=== PATIENT | male | born 1940 | race Caucasian/White ===

== ENCOUNTER 2017-06-07 13:13 | Inpatient (IN) | payer MEDICARE, MEDICAID ==
[2017-06-07] MEDS ORDERED: Sodium Chloride 0.9% 1,000 ML IV ONE (13:34)
--- NOTE | 2017-06-07 13:37 | ED Physician Chart ---
ED Chief Complaint/HPI - Patient Information Date Seen:: 06/07/17 Time Seen:: 13:35 Chief Complaint:: weakness History of Present Illness:: pt was sent from [facility] for fever...no fever noted by ems on arrival or here but pt did get tylenol prehospital. no obvious source identified by staff. no cough. no uri sx. no abd p. no cp. no PYLE. no rash. no stiff neck. speaks some to me in north korean. can answer some questions. denies pain. no cp. no sob. no PYLE pts son is present says he is not himself..usually is much more talkative. no other neuro change noted.(beside chronic l side weakness from cva) Allergies:: Allergies Allergy/AdvReac Type Severity Reaction Status Date / Time No Known Allergies Allergy Verified 06/07/17 13:22 Vitals:: Vital Signs - 8 hr 06/07/17 13:22 Temp 99.2 F HR 84 RR 16 BP 102/58 O2 Sat % 98 Historian:: Patient, Family Member (son) Review:: Transfer documents Reviewed ED Review of Systems - Review of Systems General/Constitutional: Fever, No chills, No weight loss, No weakness, No diaphoresis, No edema, No loss of appetite Skin: No skin lesions, No rash, No bruising Head: No headache, No light-headedness Eyes: No loss of vision, No pain, No diplopia ENT: No earache, No nasal drainage, No sore throat, No tinnitus Neck: No neck pain, No swelling, No thyromegaly, No stiffness, No mass noted Cardio Vascular: No chest pain, No palpitations, No PND, No orthopnea, No edema Pulmonary: No SOB, No cough, No sputum, No wheezing GI: No nausea, No vomiting, No diarrhea, No pain, No melena, No hematochezia, No constipation, No hematemesis G/U: No dysuria, No frequency, No hematuria Musculoskeletal: No bone or joint pain, No back pain, No muscle pain Endocrine: No polyuria, No polydipsia Psychiatric: No prior psych history, No depression, No anxiety, No suicidal ideation Hematopoietic: No bruising, No lymphadenopathy Allergic/Immuno: No urticaria, No angioedema Neurological: No syncope, No focal symptoms, Weakness, Paresthesia, No headache , No seizure, No dizziness, Confusion, No vertigo Other: lt side weak from prior cva ED Past Medical History - Past Medical History Past Medical History: HTN, DM, CVA/TIA, Dyslipidemia, Other (anemia) Social History: Care Facility Medication: Reviewed ED Physical Exam - Physical Examination General/Constitutional: Awake, Well-developed, well-nourished, Alert, No distress, GCS 15, Non-toxic appearing, Ambulatory Other Gen/Cons comments:: speaks some to me in [place] korean. can answer some questions. denies pain. no cp. no sob. no PYLE pts son is present says he is not himself..usually is much more talkative. no other neuro change noted. wn/wh. no pallor. abd s/nt. chest cta, good bs bilat. Head: Atraumatic Eyes: Lids, conjuctiva normal, PERRL, EOMI Skin: Nl inspection, No rash, No skin lesions, No ecchymosis, Well hydrated, No lymphadenopathy ENMT: External ears, nose nl, Nasal exam nl, Lips, teeth, gums nl Neck: Nontender, Full ROM w/o pain, No JVD, No nuchal rigidity, No bruit, No mass, No stridor Respiratory: Nl effort/Exclusion, Clear to Auscultation, No Wheeze/Rhonchi/Rales Cardio Vascular: RRR, No murmur, gallop, rubs, NL S1 S2 GI: No tenderness/rebounding/guarding, No organomegaly, No hernia, Normal BS's, Nondistended, No mass/bruits, No McBurney tenderness Other GI comments:: peg tube site ok : No CVA tenderness Extremities: No tenderness or effusion, Full ROM, No edema, Normal digits & nails Neuro/Psych: Alert/oriented, DTR's symmetric, Normal sensory exam, Judgement/ insight normal, Mood normal, No focal deficits Other Neuro/Psych comments:: l side flacid weakness. arm + leg Misc: normal gait, Normal back, No paraspinal tenderness Other Misc comments:: IT has been notified; there is a glitch in charting program --please note pt is nonambulatory. ED Labs/Radiology/EKG Results - Lab Results Results: Laboratory Tests 0906/07/17 06/07/17 14:11 14:11 14:11 WBC 9.3 RBC 4.61 Hgb 13.5 Hct 41.9 MCV 90.8 MCH 29.2 MCHC Differential 32.2 RDW 17.6 Plt Count 195 MPV 11.6 Neutrophils % 68.5 Lymphocytes % 20.8 Monocytes % 7.1 Eosinophils % 2.9 Basophils % 0.7 Sodium 160 H* Potassium 4.0 Chloride 124 H Carbon Dioxide 30.0 Anion Gap 10.0 BUN 74 H Creatinine 1.0 Est GFR ( Amer) TNP Est GFR (Non-Af Amer) TNP BUN/Creatinine Ratio 74.0 Glucose 221 H Hemoglobin A1c % Whole Bld Lactic Acid 2.10 H* Calcium 9.7 Total Bilirubin 0.3 AST 21 ALT 27 Alkaline Phosphatase 138 H Troponin I 0.04 Total Protein 7.6 Albumin 3.5 L Globulin 4.1 Albumin/Globulin Ratio 0.9 L Urine Source Urine Color Urine Clarity Urine pH Ur Specific [place] Urine Protein Urine Glucose (UA) Urine Ketones Urine Blood Urine Nitrate Urine Bilirubin Urine Urobilinogen Ur Leukocyte Esterase Urine RBC Urine WBC Ur Epithelial Cells Urine Bacteria Urine Yeast 06/07/17 06/07/17 14:11 14:50 WBC RBC Hgb Hct MCV MCH MCHC Differential RDW Plt Count MPV Neutrophils % Lymphocytes % Monocytes % Eosinophils % Basophils % Sodium Potassium Chloride Carbon Dioxide Anion Gap BUN Creatinine Est GFR ( Amer) Est GFR (Non-Af Amer) BUN/Creatinine Ratio Glucose Hemoglobin A1c % 8.8 H Whole Bld Lactic Acid Calcium Total Bilirubin AST ALT Alkaline Phosphatase Troponin I Total Protein Albumin Globulin Albumin/Globulin Ratio Urine Source CLEAN C Urine Color YELLOW Urine Clarity CLOUDY Urine pH 5.5 Ur Specific [place] 1.015 Urine Protein 30 H Urine Glucose (UA) NEGATIVE Urine Ketones NEGATIVE Urine Blood SMALL H Urine Nitrate NEGATIVE Urine Bilirubin NEGATIVE Urine Urobilinogen 0.2 Ur Leukocyte Esterase LARGE H Urine RBC 5-10 H Urine WBC >100 H Ur Epithelial Cells NONE SEEN Urine Bacteria MODERATE Urine Yeast MANY H - Radiology Results Results: cxr - nad - EKG Interpretations EKG Time:: 17:15 Rate & Rhythm: nsr 106 [place]: 57 Intervals: qtc 500 Comments:: no ectopy on ecg ...although fairly frequent pvc's seen on c monitor ED Septic Shock - . Is Septic Shock (SBP<90, OR Lactate>4 mmol\L) present?: No - <6hrs of presentation: Vital Signs: Vital Signs - 8 hr 06/07/17 13:22 Temp 99.2 F HR 84 RR 16 BP 102/58 O2 Sat % 98 Assessment of Lungs: Lung CTA bilateral Assessment of Heart: RRR Capillary refill evaluation: Capillary refill < 2 secs Skin Exam: Warm, Dry ED Reassessment (Disposition) - Reassessment Reassessment:: abx ordered for uti. fluids infusing. case dw Dr Whitman at 5:05pm...is admitting. Reassessment Condition:: Improved - Diagnosis Diagnosis:: uti dehydration weakness r/o sepsis hypernatremia - Patient Disposition Admitted to:: Telemetry Condition at Disposition:: Improved
--- NOTE | 2017-06-07 14:01 | Diagnostic Imaging Report ---
CHEST X-RAY: AP view INDICATION: Fever COMPARISON: None FINDINGS: Chronic changes are seen with slight increased left basal lung markings. No focal consolidation or effusions. Heart size is normal. Atherosclerosis is noted. Degenerative changes of the spine are noted. IMPRESSION: Chronic lung changes with increased left basal lung markings also likely chronic. No focal consolidation identified Atherosclerotic vascular disease.
--- NOTE | 2017-06-07 14:21 | Diagnostic Imaging Report ---
Head CT without intravenous contrast Indication: Fever Comparison: None Technique: Axial images were obtained from the vertex to the skull base without IV contrast. Coronal reconstructions were made. Total DLP: 564, [id number] FINDINGS: Images of the brain obtained without contrast demonstrate large area of encephalomalacia throughout the right cerebral hemisphere likely due to old large right MCA territory infarct. Mild atrophy is noted. The ventricles and basal cisterns are patent. No evidence of an acute hemorrhage. No mass effect or midline shift. 6 mm calcification of the left parietal cortex is noted. No mass effect or midline shift. No evidence of a skull fracture or focal soft tissue swelling. Atherosclerosis is noted. IMPRESSION: Large area of encephalomalacia throughout the right cerebral hemisphere likely due to a large old right MCA territory infarct. Please correlate patient's clinical findings. Atrophy. No evidence of acute hemorrhage. Atherosclerotic vascular disease.
[2017-06-07 14:30] LABS: % BASOPHILS 0.7 % (0.0-2.0); % EOSINOPHILS 2.9 % (0.0-5.0); % LYMPHOCYTES 20.8 % (20.0-50.0); % MONOCYTES 7.1 % (2.0-10.0); % NEUTROPHILS 68.5 % (40.0-80.0); HEMATOCRIT 41.9 % (41.0-60); HEMOGLOBIN 13.5 gm/dL (12-16); MEAN CELL VOLUME 90.8 fl (80-99); MEAN CORPUSCULAR HEMOGLOBIN 29.2 pg (27.0-31.0); MEAN CORPUSCULAR HGB CONC 32.2 pg (28.0-36.0); MEAN PLATELET VOLUME 11.6 fl; NEUTROPHILE ABSOLUTE 6.3 Th/cmm (1.8-8.0); PLATELET COUNT 195 Th/cmm (150-400); RED BLOOD COUNT 4.61 Mil/cmm (3.80-5.80); RED CELL DISTRIBUTION WIDTH 17.6 % (11.5-20.0); WHITE BLOOD COUNT 9.3 Th/cmm (4.8-10.8)
[2017-06-07 14:44] LABS: TROP I 0.04 ng/mL (0.01-0.05)
[2017-06-07 15:00] LABS: ALB/GLOB RATIO 0.9 (1.0-1.8); ALKALINE PHOSPHATASE 138 U/L (34-104); BILIRUBIN,TOTAL 0.3 mg/dL (0.3-1.0); BUN - UREA NITROGEN 74 mg/dL (7-25); CALCIUM SERUM 9.7 mg/dL (8.6-10.3); CHLORIDE 124 mEq/L (98-107); GLUCOSE 221 mg/dL (70-105); SGOT 21 U/L (13-39); SGPT/ALT 27 U/L (7-52)
[2017-06-07 15:09] LABS: URINE BILIRUBIN NEGATIVE (NEGATIVE); URINE BLOOD SMALL (NEGATIVE); URINE GLUCOSE (UA) NEGATIVE (NEGATIVE); URINE KETONE NEGATIVE (NEGATIVE); URINE PH 5.5 (4.6 - 8.0); URINE PROTEIN 30 mg/dL (NEGATIVE); URINE UROBILINOGEN 0.2 E.U./dL (0.2 - 1.0)
[2017-06-07 15:11] LABS: SODIUM SERUM 160 mEq/L (136-145)
[2017-06-07 15:23] LABS: URINE COLOR YELLOW
[2017-06-07 15:27] LABS: URINE BACTERIA MODERATE /hpf (NONE SEEN); URINE EPITHELIAL CELLS NONE SEEN /lpf (FEW)
[2017-06-07 15:49] LABS: URINE WBC >100 /hpf (0-5)
[2017-06-07] MEDS ORDERED: Levofloxacin 500mg/100mL 500 MG/100 ML BAG IV ONE ×2 (15:55→16:30)
[2017-06-07] MEDS: INSULIN ASPART SLIDING SCALE 100 UNITS/ML UNIT SUBQ SCH (23:12)
[2017-06-08] MEDS: Sodium Chloride 0.45% 1,000 ML IV SCH ×2 (02:30→09:24)
[2017-06-08] MEDS: INSULIN ASPART SLIDING SCALE 100 UNITS/ML UNIT SUBQ SCH ×4 (06:43→21:13)
--- NOTE | 2017-06-08 08:18 | History and Physical ---
History of Present Illness - HPI Chief Complaint: Weakness HPI: 76 year old male who presents to [facility] ER for weakness and fatigue noted at the SNF along with fever. Patient was seen in the ER and initial labwork revealed. Na+ 160, BUN 74 Cr 1.0 glu 221. UA + Large leuko, moderate bacteria. Patient has history of HTN,DM,CVA/TIA, dyslipidemia and anemia. CXR was negative. CT head NAD. Patient was subsequently admitted for further evaluation and treatment. Vital Signs: Last Vital Signs Temp 98.0 F 06/08/17 07:55 Pulse 126 06/08/17 07:55 Resp 16 06/08/17 07:55 BP 150/95 06/08/17 07:55 Pulse Ox 87 06/08/17 07:55 Past Medical History Cardiovascular: Report: HTN Pulmonary: Report: No Pertinent Hx FOLDER HAND: Report: CVA, TIA GI: Report: No Pertinent Hx Psych: Report: No Pertinent Hx Musculoskeletal: Report: No Pertinent Hx Rheumatologic: Report: No pertinent Hx Infectious Disease: Report: No Pertinent Hx Renal/: Report: No Pertinent Hx Endocrine: Report: Diabetes, Other (hyperlipidemia) Other History: Anemia - Past Surgical History Past Surgical History: No pertinent Hx Family Medical History - Family Member Mother History Unknown: Yes Social History Smoke: No Alcohol: None Drugs: None Lives: Longterm - Medications Home Medications: Home Medication Medication Instructions Recorded Type Acetaminophen [Tylenol 650 mg PO Q4HR PRN MDD fever 06/07/17 History 650mg/20.3mL Suspension] Docusate Sodium [Colace] 100 mg PO DAILY 06/07/17 History Metoprolol Tartrate [Lopressor] 25 mg PO Q8HR 06/07/17 History Mvi, Adult No.1 with Vit K 10 ml GT DAILY 06/07/17 History [M.v.i.adult 10 ml] Simvastatin [Zocor*] 25 mg GT HS 06/07/17 History Vit C/Ascorbate Ca/Ascorb Sod 500 mg GT DAILY 06/07/17 History [Vitamin C 500 mg/15 ml Liquid] Warfarin Sodium [Coumadin] 8 mg GT QPM 06/07/17 History Zinc Sulfate 220 mg GT DAILY 06/07/17 History metFORMIN [Glucophage] 500 mg GT BID 06/07/17 History - Allergies Allergies/Adverse Reactions: Allergies Allergy/AdvReac Type Severity Reaction Status Date / Time No Known Allergies Allergy Verified 06/07/17 13:22 Review of Systems - Review of Systems Constitutional: Report: Fever, Weakness, Malaise Eyes: Report: No Significant ENT: Report: No Significant Respiratory: Report: No Significant Cardiovascular: Report: No Significant Gastrointestinal: Report: No Significant Genitourinary: Report: No Significant Musculoskeletal: Report: No Significant Skin: Report: No Significant Neurological: Report: Weakness Physical Exam - Physical Exam HEENT: Report: Ears Nose Throat within normal limits, Pharnyx within normal limits Neck: Report: Within normal limits Cardiovascular Systems: Report: +s1/s2 noted, Regular, Rate and Rhythm Respiratory: Report: Breath Sounds are within normal limits, Clear to Auscultation of lung arias Abdomen: Report: Non-tender to palpation Extremities: Report: Non-tender to palpation. Skin: Report: Color of skin is within normal limits - Lab Results All Lab Results last 24 hours: Laboratory Last Values WBC 9.3 Th/cmm (4.8-10.8) 06/07/17 14:11 RBC 4.61 Mil/cmm (3.80-5.80) 06/07/17 14:11 Hgb 13.5 gm/dL (12-16) 06/07/17 14:11 Hct 41.9 % (41.0-60) 06/07/17 14:11 MCV 90.8 fl (80-99) 06/07/17 14:11 MCH 29.2 pg (27.0-31.0) 06/07/17 14:11 MCHC Differential 32.2 pg (28.0-36.0) 06/07/17 14:11 RDW 17.6 % (11.5-20.0) 06/07/17 14:11 Plt Count 195 Th/cmm (150-400) 06/07/17 14:11 MPV 11.6 fl 06/07/17 14:11 Neutrophils % 68.5 % (40.0-80.0) 06/07/17 14:11 Lymphocytes % 20.8 % (20.0-50.0) 06/07/17 14:11 Monocytes % 7.1 % (2.0-10.0) 06/07/17 14:11 Eosinophils % 2.9 % (0.0-5.0) 06/07/17 14:11 Basophils % 0.7 % (0.0-2.0) 06/07/17 14:11 Sodium 160 mEq/L (136-145) H* 06/07/17 14:11 Potassium 4.0 mEq/L (3.5-5.1) 06/07/17 14:11 Chloride 124 mEq/L (98-107) H 06/07/17 14:11 Carbon Dioxide 30.0 mEq/L (21.0-31.0) 06/07/17 14:11 Anion Gap 10.0 (7.0-16.0) 06/07/17 14:11 BUN 74 mg/dL (7-25) H 06/07/17 14:11 Creatinine 1.0 mg/dL (0.7-1.3) 06/07/17 14:11 Est GFR ( Amer) TNP 06/07/17 14:11 Est GFR (Non-Af Amer) TNP 06/07/17 14:11 BUN/Creatinine Ratio 74.0 06/07/17 14:11 Glucose 221 mg/dL (70-105) H 06/07/17 14:11 POC Glucose 385 MG/DL (70 - 105) H 06/08/17 05:22 Hemoglobin A1c % 8.8 % (4.0-6.0) H 06/07/17 14:11 Whole Bld Lactic Acid 3.05 mmol/L (0.60-1.99) H* 06/07/17 16:19 Calcium 9.7 mg/dL (8.6-10.3) 06/07/17 14:11 Total Bilirubin 0.3 mg/dL (0.3-1.0) 06/07/17 14:11 AST 21 U/L (13-39) 06/07/17 14:11 ALT 27 U/L (7-52) 06/07/17 14:11 Alkaline Phosphatase 138 U/L (34-104) H 06/07/17 14:11 Troponin I 0.04 ng/mL (0.01-0.05) 06/07/17 14:11 Total Protein 7.6 gm/dL (6.0-8.3) 06/07/17 14:11 Albumin 3.5 gm/dL (4.2-5.5) L 06/07/17 14:11 Globulin 4.1 gm/dL 06/07/17 14:11 Albumin/Globulin Ratio 0.9 (1.0-1.8) L 06/07/17 14:11 Urine Source CLEAN C 06/07/17 14:50 Urine Color YELLOW 06/07/17 14:50 Urine Clarity CLOUDY (CLEAR) 06/07/17 14:50 Urine pH 5.5 (4.6 - 8.0) 06/07/17 14:50 Ur Specific [place] 1.015 (1.005-1.030) 06/07/17 14:50 Urine Protein 30 mg/dL (NEGATIVE) H 06/07/17 14:50 Urine Glucose (UA) NEGATIVE mg/dL (NEGATIVE) 06/07/17 14:50 Urine Ketones NEGATIVE mg/dL (NEGATIVE) 06/07/17 14:50 Urine Blood SMALL (NEGATIVE) H 06/07/17 14:50 Urine Nitrate NEGATIVE (NEGATIVE) 06/07/17 14:50 Urine Bilirubin NEGATIVE (NEGATIVE) 06/07/17 14:50 Urine Urobilinogen 0.2 E.U./dL (0.2 - 1.0) 06/07/17 14:50 Ur Leukocyte Esterase LARGE (NEGATIVE) H 06/07/17 14:50 Urine RBC 5-10 /hpf (0-5) H 06/07/17 14:50 Urine WBC >100 /hpf (0-5) H 06/07/17 14:50 Ur Epithelial Cells NONE SEEN /lpf (FEW) 06/07/17 14:50 Urine Bacteria MODERATE /hpf (NONE SEEN) 06/07/17 14:50 Urine Yeast MANY /hpf (NONE SEEN) H 06/07/17 14:50 Laboratory Results - last 24 hr 06/07/17 06/08/17 22:33 05:22 POC Glucose 197 H 385 H - Assessment Assessment: weakness and fatigue hypernatremia prerenal azotemia uti hyperglycemia hypertension diabetes mellitus cva/TIA hyperlipidemia - Plan Plan: weakness and fatigue hypernatremia ... will repeat BMP tomorrow. continue 1/2NS prerenal azotemia ... see above uti .. urine c/s pending. continue Levoquin IV hyperglycemia ... Low dose SSI. accucheck hs ac hypertension ... monitor diabetes mellitus see above cva/TIA stable hyperlipidemia continue statins
[2017-06-08] MEDS: Multivitamin w/ Minerals Tab GT SCH (09:31)
[2017-06-08 10:26] LABS: % NEUTROPHILS 71.9 % (40.0-80.0); NEUTROPHILE ABSOLUTE 6.8 Th/cmm (1.8-8.0); WHITE BLOOD COUNT 9.5 Th/cmm (4.8-10.8)
[2017-06-08 10:31] LABS: % BASOPHILS 0.5 % (0.0-2.0); % LYMPHOCYTES 18.8 % (20.0-50.0); % MONOCYTES 5.8 % (2.0-10.0); HEMATOCRIT 43.3 % (41.0-60); MEAN CORPUSCULAR HEMOGLOBIN 29.4 pg (27.0-31.0); MEAN CORPUSCULAR HGB CONC 32.3 pg (28.0-36.0); MEAN PLATELET VOLUME 12.7 fl; PLATELET COUNT 207 Th/cmm (150-400); RED BLOOD COUNT 4.76 Mil/cmm (3.80-5.80); RED CELL DISTRIBUTION WIDTH 17.2 % (11.5-20.0)
[2017-06-08 10:33] LABS: INR 1.9 (0.5-1.4); PROTHROMBIN TIME (TEST) 20.5 SECONDS (9.5-11.5)
[2017-06-08 11:29] LABS: ALB/GLOB RATIO 0.8 (1.0-1.8); ALKALINE PHOSPHATASE 137 U/L (34-104); ANION GAP 11.6 (7.0-16.0); BILIRUBIN,TOTAL 0.5 mg/dL (0.3-1.0); BUN - UREA NITROGEN 66 mg/dL (7-25); CALCIUM SERUM 9.7 mg/dL (8.6-10.3); CARBON DIOXIDE 29.7 mEq/L (21.0-31.0); CHLORIDE 120 mEq/L (98-107); GLUCOSE 439 mg/dL (70-105); POTASSIUM SERUM 4.3 mEq/L (3.5-5.1); SGOT 20 U/L (13-39); SGPT/ALT 28 U/L (7-52); SODIUM SERUM 157 mEq/L (136-145)
[2017-06-08 11:30] LABS: CHOLESTEROL 235 mg/dL (<200); TRIGLYCERIDES 393 mg/dL (<150)
[2017-06-08] MEDS ORDERED: VTE Chemical Prophylaxis Screen/Admission MC PRN (16:03)
[2017-06-08] MEDS ORDERED: WARFARIN SODIUM 8 MG GT SCH (17:00)
[2017-06-08] MEDS: Levofloxacin 500mg/100mL 500 MG/100 ML BAG IV SCH (17:15)
[2017-06-09] MEDS: Sodium Chloride 0.45% 1,000 ML IV SCH ×2 (02:32→17:02)
[2017-06-09 06:30] LABS: % BASOPHILS 0.4 % (0.0-2.0); % LYMPHOCYTES 26.1 % (20.0-50.0); % MONOCYTES 5.2 % (2.0-10.0); % NEUTROPHILS 65.3 % (40.0-80.0); HEMOGLOBIN 12.4 gm/dL (12-16); MEAN CELL VOLUME 89.7 fl (80-99); MEAN CORPUSCULAR HEMOGLOBIN 29.5 pg (27.0-31.0); MEAN CORPUSCULAR HGB CONC 32.9 pg (28.0-36.0); MEAN PLATELET VOLUME 10.3 fl; NEUTROPHILE ABSOLUTE 5.7 Th/cmm (1.8-8.0); PLATELET COUNT 167 Th/cmm (150-400); WHITE BLOOD COUNT 8.8 Th/cmm (4.8-10.8)
[2017-06-09 06:33] LABS: HEMATOCRIT 37.7 % (41.0-60)
[2017-06-09 06:35] LABS: ALB/GLOB RATIO 0.8 (1.0-1.8); ALKALINE PHOSPHATASE 119 U/L (34-104); ANION GAP 9.6 (7.0-16.0); BILIRUBIN,TOTAL 0.4 mg/dL (0.3-1.0); BUN - UREA NITROGEN 43 mg/dL (7-25); BUN/CREATININE RATIO 53.8; CALCIUM SERUM 9.1 mg/dL (8.6-10.3); CARBON DIOXIDE 29.3 mEq/L (21.0-31.0); CHLORIDE 117 mEq/L (98-107); CREATININE - SERUM 0.8 mg/dL (0.7-1.3); GLUCOSE 388 mg/dL (70-105); POTASSIUM SERUM 3.9 mEq/L (3.5-5.1); SGOT 19 U/L (13-39); SGPT/ALT 22 U/L (7-52); SODIUM SERUM 152 mEq/L (136-145)
[2017-06-09] MEDS: INSULIN ASPART SLIDING SCALE 100 UNITS/ML UNIT SUBQ SCH ×4 (06:36→21:09)
--- NOTE | 2017-06-09 08:19 | General Progress Note ---
Subjective - Review of Systems Service Date: 06/09/17 Subjective: Patient more awake and alert. responding to IV fluids and IV antibiotics. +MRSA nares. Objective - Results Result Diagrams: 06/09/17 06:05 06/09/17 06:05 Recent Labs: Laboratory Last Values WBC 8.8 Th/cmm (4.8-10.8) 06/09/17 06:05 RBC 4.20 Mil/cmm (3.80-5.80) 06/09/17 06:05 Hgb 12.4 gm/dL (12-16) 06/09/17 06:05 Hct 37.7 % (41.0-60) L D 06/09/17 06:05 MCV 89.7 fl (80-99) 06/09/17 06:05 MCH 29.5 pg (27.0-31.0) 06/09/17 06:05 MCHC Differential 32.9 pg (28.0-36.0) 06/09/17 06:05 RDW 16.0 % (11.5-20.0) 06/09/17 06:05 Plt Count 167 Th/cmm (150-400) 06/09/17 06:05 MPV 10.3 fl 06/09/17 06:05 Neutrophils % 65.3 % (40.0-80.0) 06/09/17 06:05 Lymphocytes % 26.1 % (20.0-50.0) 06/09/17 06:05 Monocytes % 5.2 % (2.0-10.0) 06/09/17 06:05 Eosinophils % 3.0 % (0.0-5.0) 06/09/17 06:05 Basophils % 0.4 % (0.0-2.0) 06/09/17 06:05 PT 20.5 SECONDS (9.5-11.5) H 06/08/17 10:05 INR 1.90 (0.5-1.4) H 06/08/17 10:05 Sodium 152 mEq/L (136-145) H 06/09/17 06:05 Potassium 3.9 mEq/L (3.5-5.1) 06/09/17 06:05 Chloride 117 mEq/L (98-107) H 06/09/17 06:05 Carbon Dioxide 29.3 mEq/L (21.0-31.0) 06/09/17 06:05 Anion Gap 9.6 (7.0-16.0) 06/09/17 06:05 BUN 43 mg/dL (7-25) H 06/09/17 06:05 Creatinine 0.8 mg/dL (0.7-1.3) 06/09/17 06:05 Est GFR ( Amer) TNP 06/09/17 06:05 Est GFR (Non-Af Amer) TNP 06/09/17 06:05 BUN/Creatinine Ratio 53.8 06/09/17 06:05 Glucose 388 mg/dL (70-105) H 06/09/17 06:05 POC Glucose 358 MG/DL (70 - 105) H 06/09/17 05:22 Hemoglobin A1c % 8.8 % (4.0-6.0) H 06/07/17 14:11 Whole Bld Lactic Acid 2.11 mmol/L (0.60-1.99) H* 06/08/17 12:05 Calcium 9.1 mg/dL (8.6-10.3) 06/09/17 06:05 Total Bilirubin 0.4 mg/dL (0.3-1.0) 06/09/17 06:05 AST 19 U/L (13-39) 06/09/17 06:05 ALT 22 U/L (7-52) 06/09/17 06:05 Alkaline Phosphatase 119 U/L (34-104) H 06/09/17 06:05 Troponin I 0.04 ng/mL (0.01-0.05) 06/07/17 14:11 Total Protein 7.1 gm/dL (6.0-8.3) 06/09/17 06:05 Albumin 3.2 gm/dL (4.2-5.5) L 06/09/17 06:05 Globulin 3.9 gm/dL 06/09/17 06:05 Albumin/Globulin Ratio 0.8 (1.0-1.8) L 06/09/17 06:05 Triglycerides 393 mg/dL (<150) H 06/08/17 10:05 Cholesterol 235 mg/dL (<200) H 06/08/17 10:05 LDL Cholesterol Direct 141 mg/dL (75-193) 06/08/17 10:05 HDL Cholesterol 32 mg/dL (23-92) 06/08/17 10:05 TSH 1.42 uIU/ml (0.34-5.60) 06/08/17 10:05 Urine Source CLEAN C 06/07/17 14:50 Urine Color YELLOW 06/07/17 14:50 Urine Clarity CLOUDY (CLEAR) 06/07/17 14:50 Urine pH 5.5 (4.6 - 8.0) 06/07/17 14:50 Ur Specific [place] 1.015 (1.005-1.030) 06/07/17 14:50 Urine Protein 30 mg/dL (NEGATIVE) H 06/07/17 14:50 Urine Glucose (UA) NEGATIVE mg/dL (NEGATIVE) 06/07/17 14:50 Urine Ketones NEGATIVE mg/dL (NEGATIVE) 06/07/17 14:50 Urine Blood SMALL (NEGATIVE) H 06/07/17 14:50 Urine Nitrate NEGATIVE (NEGATIVE) 06/07/17 14:50 Urine Bilirubin NEGATIVE (NEGATIVE) 06/07/17 14:50 Urine Urobilinogen 0.2 E.U./dL (0.2 - 1.0) 06/07/17 14:50 Ur Leukocyte Esterase LARGE (NEGATIVE) H 06/07/17 14:50 Urine RBC 5-10 /hpf (0-5) H 06/07/17 14:50 Urine WBC >100 /hpf (0-5) H 06/07/17 14:50 Ur Epithelial Cells NONE SEEN /lpf (FEW) 06/07/17 14:50 Urine Bacteria MODERATE /hpf (NONE SEEN) 06/07/17 14:50 Urine Yeast MANY /hpf (NONE SEEN) H 06/07/17 14:50 - Physical Exam Vitals and I&O: Vital Signs Temp 97.6 F 06/09/17 07:45 Pulse 97 06/09/17 07:45 Resp 18 06/09/17 07:45 BP 99/69 06/09/17 07:45 Pulse Ox 97 06/09/17 07:45 Intake & Output 06/08/17 06/09/17 06/09/17 18:59 06:59 18:59 Intake Total 2042.5 1720 Balance 2042.5 1720 Weight (lbs) 63.531 kg 67.812 kg Intake: Intake, IV Amount 617.5 1000 Levofloxacin 500mg/100mL 100 500 mg In 100 ml @ 100 mls/hr IV Q24HR [facility] Rx#: [id number] Sodium Chloride 0.45% 1, 517.5 1000 000 ml @ 75 mls/hr IV . [id number] [facility] Rx#:[id number] Tube Feeding 825 600 Other 600 120 Other: # Voids 3 3 # Bowel Movements 1 Stool Characteristics Soft Formed Active Medications: Current Medications Acetaminophen (Tylenol 650mg/20.3ml Suspension) 650 mg PO Q4HR PRN PRN Reason: Fever > 101 Stop: 08/07/17 08:20 Ascorbic Acid (Vitamin C) 500 mg GT DAILY [facility] Stop: 08/07/17 08:59 Last Admin: 06/08/17 09:31 Dose: 500 mg Docusate Sodium (Colace) 100 mg PO DAILY [facility] Stop: 08/07/17 08:59 Last Admin: 06/08/17 09:31 Dose: 100 mg Glipizide (Glucotrol) 10 mg PO DAILY [facility] Stop: 08/08/17 08:59 Levofloxacin (Levaquin Pb) 500 mg in 100 mls @ 100 mls/hr IV Q24HR [facility] Stop: 08/07/17 17:44 Last Infusion: 06/08/17 18:15 Dose: Infused Sodium Chloride (Nacl 0.45%) 1,000 mls @ 75 mls/hr IV .[id number] [facility] Stop: 08/06/17 17:44 Last Admin: 06/09/17 02:32 Dose: 75 mls/hr Insulin Aspart (Novolog Insulin Sliding Scale) 2 - 12 units SUBQ ACHS [facility] PRN Reason: Protocol Stop: 08/06/17 20:59 Last Admin: 06/09/17 06:36 Dose: 10 units Lorazepam (Ativan) 1 mg IVP Q4HR PRN; Protocol PRN Reason: Agitation Stop: 08/07/17 08:20 Last Admin: 06/08/17 08:50 Dose: 1 mg Metoprolol Tartrate (Lopressor) 25 mg PO Q8HR [facility] Stop: 08/07/17 12:59 Last Admin: 06/09/17 05:18 Dose: 25 mg Miscellaneous (Vte Chemical Prophylaxis Screen/ Admission) 1 ea [facility] PRN PRN PRN Reason: PROTOCOL Stop: 08/07/17 16:02 Mupirocin (Bactroban Oint) 1 appl NS BID [facility] Stop: 06/13/17 17:01 Simvastatin (Zocor) 25 mg GT HS [facility] PRN Reason: Protocol Stop: 08/07/17 20:59 Warfarin Sodium 5 mg/ Warfarin (Sodium 3 mg) 8 mg GT QPM [facility] Stop: 08/07/17 16:59 Last Admin: 06/08/17 17:18 Dose: 8 mg General: Alert, Oriented x3, No acute distress HEENT: Atraumatic, PERRLA Neck: Supple Cardiovascular: Regular rate, Normal S1, Normal S2 Lungs: Clear to auscultation Abdomen: Bowel sounds, Soft Extremities: no Clubbing, no Cyanosis, no Edema Assessment/Plan - Assessment Assessment: weakness and fatigue hypernatremia prerenal azotemia uti hyperglycemia hypertension diabetes mellitus cva/TIA hyperlipidemia - Plan Plan: weakness and fatigue hypernatremia ... improving Na 160-157-152 prerenal azotemia ... improving BUN 70-60-40 uti .. urine c/s pending. continue Levoquin 500mg IV daily hyperglycemia/DM ... Low dose SSI. accucheck hs ac will add Levemir 6u qHS hypertension ... low. will continue monitor cva/TIA stable hyperlipidemia continue statins Nutritional Asmnt/Malnutr-PDOC - Dietary Evaluation Malnutrition Findings (Please click <Entered> for more info): Nutritional Asmnt/Malnutrition Start: 06/08/17 16: 35 Text: Status: Complete Freq: Document 06/08/17 16:35 GSUN (Rec: 06/08/17 16:51 [email or web address]) Nutritional Asmnt/Malnutrition Patient General Information Nutritional Screening High Risk Screening Diagnosis Weakness and fatigue, hypernatremia, UTI, prerenal azotemia Pertinent Medical Hx/Surgical Hx HTN, CVA, TIA, DM, hyperlipidemia Subjective Information 76 year old male from SNF. Observed tube feeding infusing as order during visit. Pt was awake, held hands with credit underwriter . No muscle fat wasting noted, appeared age appropriate. Family members at bedside, pt' s UBW 135lb, no nutritional questions at this time. Spoke to KYLIE Gudino RN stated pt tolerating feeding well. Current Diet Order/ Nutrition Support Diabetisource at 75ml/hr x 20hrs, providing 1800kcal, 90g protein Pertinent Medications Vitamin C, Colace, Glucotrol, Novolog, Warfarin Sodium Pertinent Labs 06/07: A1c 8.8H 06/08: BUN 66H, glucose 439H, triglycerides 393H, cholesterol 235H Nutritional Hx/Data Height 1.68 m Height (Calculated Centimeters) 167.6 Current Weight (lbs) 63.276 kg Weight (Calculated Kilograms) 63.3 Weight (Calculated Grams) 71475.1 Usual body Weight (lbs) 135 [place] Body Weight 142 Weight Status Approriate GI Symptoms Usual diet at home [facility]: Glucerna 1.5 at 70ml/hr x 20hrs, 2100kcal Skin Integrity/Comment: Darrel 13. Left lateral foot pressure area. Estimated Nutritional Goals BEE in Kcals: Using Current wt Calories/Kcals/Kg CBW 139.5lb/63.4kg Kcals Calculated 1585-1902kcal (25-30kcal/kg) Protein: Using Current wt Protein Calculated 76-89g (1.2-1.4g/kg) Fluid: ml 1585-1902ml (1ml/kcal) Nutritional Problem 1. Problem Problem Altered nutrition related laboratory values related to Etiology DM aeb Signs/Symptoms: A1c 8.8, glucose 439 today Intervention/Recommendation Comments 1. Continue with current tube feeding order. Expected Outcomes/Goals Expected Outcomes/Goals 1. Pt to meet 100% of estimated nutritional needs on tube feeding with tolerance.
[2017-06-09] MEDS: Multivitamin w/ Minerals Tab GT SCH (08:46)
[2017-06-09] MEDS ORDERED: Probiotic Screen MC PRN (10:30)
[2017-06-09] MEDS: Albuterol Nebulizer 2.5mg/3mL HHN PRN (15:31)
[2017-06-09] MEDS: Levofloxacin 500mg/100mL 500 MG/100 ML BAG IV SCH (16:57)
[2017-06-09] MEDS ORDERED: Insulin Detemir 100 units/mL 10mL Vial SUBQ SCH (21:00)
[2017-06-10] MEDS: INSULIN ASPART SLIDING SCALE 100 UNITS/ML UNIT SUBQ SCH ×3 (06:49→16:30)
[2017-06-10 07:55] LABS: % BASOPHILS 0.5 % (0.0-2.0); % LYMPHOCYTES 30.1 % (20.0-50.0); % MONOCYTES 6.5 % (2.0-10.0); % NEUTROPHILS 58.9 % (40.0-80.0); HEMATOCRIT 36.1 % (41.0-60); MEAN CORPUSCULAR HEMOGLOBIN 29.6 pg (27.0-31.0); MEAN CORPUSCULAR HGB CONC 33.3 pg (28.0-36.0); MEAN PLATELET VOLUME 12.8 fl; NEUTROPHILE ABSOLUTE 4.9 Th/cmm (1.8-8.0); PLATELET COUNT 189 Th/cmm (150-400); RED BLOOD COUNT 4.05 Mil/cmm (3.80-5.80); WHITE BLOOD COUNT 8.1 Th/cmm (4.8-10.8)
[2017-06-10 08:09] LABS: ANION GAP 8.8 (7.0-16.0); BUN - UREA NITROGEN 34 mg/dL (7-25); BUN/CREATININE RATIO 42.5; CALCIUM SERUM 9.1 mg/dL (8.6-10.3); CARBON DIOXIDE 26.3 mEq/L (21.0-31.0); CHLORIDE 115 mEq/L (98-107); CREATININE - SERUM 0.8 mg/dL (0.7-1.3); GLUCOSE 339 mg/dL (70-105); POTASSIUM SERUM 4.1 mEq/L (3.5-5.1); SODIUM SERUM 146 mEq/L (136-145)
--- NOTE | 2017-06-10 08:19 | General Progress Note ---
Subjective - Review of Systems Service Date: 06/10/17 Subjective: awake,alert, afebrile. Objective - Results Result Diagrams: 06/10/17 07:15 06/09/17 06:05 Recent Labs: Laboratory Last Values WBC 8.1 Th/cmm (4.8-10.8) 06/10/17 07:15 RBC 4.05 Mil/cmm (3.80-5.80) 06/10/17 07:15 Hgb 12.0 gm/dL (12-16) 06/10/17 07:15 Hct 36.1 % (41.0-60) L 06/10/17 07:15 MCV 89.0 fl (80-99) 06/10/17 07:15 MCH 29.6 pg (27.0-31.0) 06/10/17 07:15 MCHC Differential 33.3 pg (28.0-36.0) 06/10/17 07:15 RDW 16.0 % (11.5-20.0) 06/10/17 07:15 Plt Count 189 Th/cmm (150-400) 06/10/17 07:15 MPV 12.8 fl 06/10/17 07:15 Neutrophils % 58.9 % (40.0-80.0) 06/10/17 07:15 Lymphocytes % 30.1 % (20.0-50.0) 06/10/17 07:15 Monocytes % 6.5 % (2.0-10.0) 06/10/17 07:15 Eosinophils % 4.0 % (0.0-5.0) 06/10/17 07:15 Basophils % 0.5 % (0.0-2.0) 06/10/17 07:15 PT 20.5 SECONDS (9.5-11.5) H 06/08/17 10:05 INR 1.90 (0.5-1.4) H 06/08/17 10:05 Sodium 152 mEq/L (136-145) H 06/09/17 06:05 Potassium 3.9 mEq/L (3.5-5.1) 06/09/17 06:05 Chloride 117 mEq/L (98-107) H 06/09/17 06:05 Carbon Dioxide 29.3 mEq/L (21.0-31.0) 06/09/17 06:05 Anion Gap 9.6 (7.0-16.0) 06/09/17 06:05 BUN 43 mg/dL (7-25) H 06/09/17 06:05 Creatinine 0.8 mg/dL (0.7-1.3) 06/09/17 06:05 Est GFR ( Amer) TNP 06/09/17 06:05 Est GFR (Non-Af Amer) TNP 06/09/17 06:05 BUN/Creatinine Ratio 53.8 06/09/17 06:05 Glucose 388 mg/dL (70-105) H 06/09/17 06:05 POC Glucose 200 MG/DL (70 - 105) H 06/09/17 21:08 Hemoglobin A1c % 8.8 % (4.0-6.0) H 06/07/17 14:11 Whole Bld Lactic Acid 2.11 mmol/L (0.60-1.99) H* 06/08/17 12:05 Calcium 9.1 mg/dL (8.6-10.3) 06/09/17 06:05 Total Bilirubin 0.4 mg/dL (0.3-1.0) 06/09/17 06:05 AST 19 U/L (13-39) 06/09/17 06:05 ALT 22 U/L (7-52) 06/09/17 06:05 Alkaline Phosphatase 119 U/L (34-104) H 06/09/17 06:05 Troponin I 0.04 ng/mL (0.01-0.05) 06/07/17 14:11 Total Protein 7.1 gm/dL (6.0-8.3) 06/09/17 06:05 Albumin 3.2 gm/dL (4.2-5.5) L 06/09/17 06:05 Globulin 3.9 gm/dL 06/09/17 06:05 Albumin/Globulin Ratio 0.8 (1.0-1.8) L 06/09/17 06:05 Triglycerides 393 mg/dL (<150) H 06/08/17 10:05 Cholesterol 235 mg/dL (<200) H 06/08/17 10:05 LDL Cholesterol Direct 141 mg/dL (75-193) 06/08/17 10:05 HDL Cholesterol 32 mg/dL (23-92) 06/08/17 10:05 TSH 1.42 uIU/ml (0.34-5.60) 06/08/17 10:05 Urine Source CLEAN C 06/07/17 14:50 Urine Color YELLOW 06/07/17 14:50 Urine Clarity CLOUDY (CLEAR) 06/07/17 14:50 Urine pH 5.5 (4.6 - 8.0) 06/07/17 14:50 Ur Specific [place] 1.015 (1.005-1.030) 06/07/17 14:50 Urine Protein 30 mg/dL (NEGATIVE) H 06/07/17 14:50 Urine Glucose (UA) NEGATIVE mg/dL (NEGATIVE) 06/07/17 14:50 Urine Ketones NEGATIVE mg/dL (NEGATIVE) 06/07/17 14:50 Urine Blood SMALL (NEGATIVE) H 06/07/17 14:50 Urine Nitrate NEGATIVE (NEGATIVE) 06/07/17 14:50 Urine Bilirubin NEGATIVE (NEGATIVE) 06/07/17 14:50 Urine Urobilinogen 0.2 E.U./dL (0.2 - 1.0) 06/07/17 14:50 Ur Leukocyte Esterase LARGE (NEGATIVE) H 06/07/17 14:50 Urine RBC 5-10 /hpf (0-5) H 06/07/17 14:50 Urine WBC >100 /hpf (0-5) H 06/07/17 14:50 Ur Epithelial Cells NONE SEEN /lpf (FEW) 06/07/17 14:50 Urine Bacteria MODERATE /hpf (NONE SEEN) 06/07/17 14:50 Urine Yeast MANY /hpf (NONE SEEN) H 06/07/17 14:50 - Physical Exam Vitals and I&O: Vital Signs Temp 98 F 06/10/17 04:00 Pulse 91 06/10/17 05:05 Resp 18 06/10/17 04:00 BP 116/63 06/10/17 05:05 Pulse Ox 97 06/10/17 04:00 Intake & Output 06/09/17 06/10/17 06/10/17 18:59 06:59 18:59 Intake Total 1950 970 Balance 1950 970 Weight (lbs) 67.812 kg 67.767 kg 68.045 kg Intake: Intake, IV Amount 1000 Sodium Chloride 0.45% 1, 1000 000 ml @ 75 mls/hr IV . [id number] [facility] Rx#:[id number] Oral 0 300 Tube Feeding 750 670 Other 200 Other: # Voids 2 3 # Bowel Movements 0 1 Stool Characteristics Soft Formed Black Active Medications: Current Medications Acetaminophen (Tylenol 650mg/20.3ml Suspension) 650 mg PO Q4HR PRN PRN Reason: Fever > 101 Stop: 08/07/17 08:20 Albuterol Sulfate (Albuterol 2.5mg/3ml Neb Ud) 2.5 mg HHN Q6H PRN PRN Reason: cough Stop: 08/08/17 14:43 Last Admin: 06/09/17 15:31 Dose: 2.5 mg Ascorbic Acid (Vitamin C) 500 mg GT DAILY [facility] Stop: 08/07/17 08:59 Last Admin: 06/09/17 08:46 Dose: 500 mg Docusate Sodium (Colace) 100 mg PO DAILY RAYMUNDO Stop: 08/07/17 08:59 Last Admin: 06/09/17 08:46 Dose: 100 mg Glipizide (Glucotrol) 10 mg PO DAILY RAYMUNDO Stop: 08/08/17 08:59 Last Admin: 06/09/17 08:46 Dose: 10 mg Levofloxacin (Levaquin Pb) 500 mg in 100 mls @ 100 mls/hr IV Q24HR RAYMUNDO Stop: 08/07/17 17:44 Last Admin: 06/09/17 16:57 Dose: 100 mls/hr Sodium Chloride (Nacl 0.45%) 1,000 mls @ 75 mls/hr IV .[id number] [facility] Stop: 08/06/17 17:44 Last Admin: 06/09/17 17:02 Dose: 75 mls/hr Insulin Aspart (Novolog Insulin Sliding Scale) 2 - 12 units SUBQ ACHS RAYMUNDO PRN Reason: Protocol Stop: 08/06/17 20:59 Last Admin: 06/10/17 06:49 Dose: 8 units Insulin Detemir (Levemir Insulin) 6 units SUBQ HS RAYMUNDO PRN Reason: Protocol Stop: 08/08/17 20:59 Last Admin: 06/09/17 21:10 Dose: 6 units Lactobacillus Rhamnosus (Culturelle) 1 each PO DAILY RAYMUNDO Stop: 08/09/17 08:59 Lorazepam (Ativan) 1 mg IVP Q4HR PRN; Protocol PRN Reason: Agitation Stop: 08/07/17 08:20 Last Admin: 06/08/17 08:50 Dose: 1 mg Metoprolol Tartrate (Lopressor) 25 mg PO Q8HR RAYMUNDO Stop: 08/07/17 12:59 Last Admin: 06/10/17 05:05 Dose: 25 mg Miscellaneous (Vte Chemical Prophylaxis Screen/ Admission) 1 ea PRN PRN PRN Reason: PROTOCOL Stop: 08/07/17 16:02 Miscellaneous (Probiotic Screen) 1 ea PRN PRN PRN Reason: PROTOCOL Stop: 08/08/17 10:29 Mupirocin (Bactroban Oint) 1 appl NS BID RAYMUNDO Stop: 06/13/17 17:01 Last Admin: 06/09/17 16:58 Dose: 1 appl Simvastatin (Zocor) 20 mg GT HS RAYMUNDO PRN Reason: Protocol Stop: 08/07/17 20:59 Last Admin: 06/09/17 20:58 Dose: 20 mg Warfarin Sodium 5 mg/ Warfarin (Sodium 3 mg) 8 mg GT QPM RAYMUNDO Stop: 08/07/17 16:59 Last Admin: 06/09/17 16:59 Dose: 8 mg General: Alert, Oriented x3, No acute distress HEENT: Atraumatic, PERRLA Neck: Supple Cardiovascular: Regular rate, Normal S1, Normal S2 Lungs: Clear to auscultation Abdomen: Bowel sounds, Soft Extremities: no Clubbing, no Cyanosis, no Edema Assessment/Plan - Assessment Assessment: weakness and fatigue hypernatremia prerenal azotemia uti hyperglycemia hypertension diabetes mellitus cva/TIA hyperlipidemia - Plan Plan: weakness and fatigue hypernatremia ... improving Na 160-157-152 prerenal azotemia ... improving BUN 70-60-40 uti .. urine c/s pending. continue Levoquin 500mg IV daily hyperglycemia/DM ... Low dose SSI. accucheck hs ac will increase Levemir 10u qHS hypertension ... low. will continue monitor cva/TIA stable hyperlipidemia continue statins Nutritional Asmnt/Malnutr-PDOC - Dietary Evaluation Malnutrition Findings (Please click <Entered> for more info): Nutritional Asmnt/Malnutrition Start: 06/08/17 16: 35 Text: Status: Complete Freq: Document 06/08/17 16:35 GSUN (Rec: 06/08/17 16:51 GSRACHAEL [id number]) Nutritional Asmnt/Malnutrition Patient General Information Nutritional Screening High Risk Screening Diagnosis Weakness and fatigue, hypernatremia, UTI, prerenal azotemia Pertinent Medical Hx/Surgical Hx HTN, CVA, TIA, DM, hyperlipidemia Subjective Information 76 year old male from SNF. Observed tube feeding infusing as order during visit. Pt was awake, held hands with credit underwriter . No muscle fat wasting noted, appeared age appropriate. Family members at bedside, pt' s UBW 135lb, no nutritional questions at this time. Spoke to KYLIE Gudino RN stated pt tolerating feeding well. Current Diet Order/ Nutrition Support Diabetisource at 75ml/hr x 20hrs, providing 1800kcal, 90g protein Pertinent Medications Vitamin C, Colace, Glucotrol, Novolog, Warfarin Sodium Pertinent Labs 06/07: A1c 8.8H 06/08: BUN 66H, glucose 439H, triglycerides 393H, cholesterol 235H Nutritional Hx/Data Height 1.68 m Height (Calculated Centimeters) 167.6 Current Weight (lbs) 63.276 kg Weight (Calculated Kilograms) 63.3 Weight (Calculated Grams) 81248.1 Usual body Weight (lbs) 135 [place] Body Weight 142 Weight Status Approriate GI Symptoms Usual diet at home [facility]: Glucerna 1.5 at 70ml/hr x 20hrs, 2100kcal Skin Integrity/Comment: Darrel 13. Left lateral foot pressure area. Estimated Nutritional Goals BEE in Kcals: Using Current wt Calories/Kcals/Kg CBW 139.5lb/63.4kg Kcals Calculated 1585-1902kcal (25-30kcal/kg) Protein: Using Current wt Protein Calculated 76-89g (1.2-1.4g/kg) Fluid: ml 1585-1902ml (1ml/kcal) Nutritional Problem 1. Problem Problem Altered nutrition related laboratory values related to Etiology DM aeb Signs/Symptoms: A1c 8.8, glucose 439 today Intervention/Recommendation Comments 1. Continue with current tube feeding order. Expected Outcomes/Goals Expected Outcomes/Goals 1. Pt to meet 100% of estimated nutritional needs on tube feeding with tolerance.
[2017-06-10] MEDS: Multivitamin w/ Minerals Tab GT SCH (08:37)
[2017-06-10] MEDS: Sodium Chloride 0.45% 1,000 ML IV SCH (08:42)
[2017-06-10] MEDS ORDERED: Lactobacillus Rhamnosus 10 Billion CFU Capsule PO SCH (09:00)
[2017-06-10] MEDS ORDERED: FLUCONAZOLE 100 MG/50 ML IV SCH (11:15)
[2017-06-10] MEDS: Albuterol Nebulizer 2.5mg/3mL HHN PRN (19:19)
[2017-06-10] MEDS ORDERED: Insulin Detemir 100 units/mL 10mL Vial SUBQ SCH (21:00)
--- NOTE | 2017-06-11 10:04 | Discharge Summary ---
DATE OF DISCHARGE: 06/11/2017 PRELIMINARY DIAGNOSES: 1. Prerenal azotemia. 2. Urinary tract infection. 3. Hypernatremia. 4. Diabetes mellitus. 5. Hypertension. 6. Hyperlipidemia. 7. Cerebrovascular accident. 8. Transient ischemic attack. DISCHARGE DIAGNOSES: 1. Prerenal azotemia. 2. Urinary tract infection. 3. Hypernatremia. 4. Diabetes mellitus. 5. Hypertension. 6. Hyperlipidemia. 7. Cerebrovascular accident. 8. Transient ischemic attack. HISTORY OF PRESENT ILLNESS: This is a 76-year-old male who presents to [facility] ER for weakness and fatigue noted at the senior living facility along with fever. The patient was seen in the ER and initial lab work revealed sodium of 160, BUN of 74, creatinine 1.0, glucose 221. His UA showed large leukocyte esterase with moderate bacteria. The patient has a previous history of hypertension, diabetes, CVA, TIA, dyslipidemia, and anemia. His initial chest x-ray was negative. CT of his head showed no acute disease. He was subsequently admitted to Med/Surg for further evaluation and treatment. HOSPITAL COURSE: The patient improved during his hospital stay. The patient was given some IV hydration. Initial BUN was noted to be 74, which gradually decreased to 66 on 06/08/2017 and had gone down to 34 on 06/10/2017. His sodium also had improved, initially was noted at 160 on day of admission and had decreased to 146 on day of discharge. The patient also had a normal white count throughout his hospital stay. The patient was started on IV Levaquin. The patient was then discharged in stable condition, was to continue his home medications at the senior living facility. [facility]# [id number]
== END 2017-06-10 21:30 | DRG 690 ==
LOC: ER 13:13 → TELE 17:05
PROVIDERS: ADMIT Family Medicine; ATTEND Family Medicine
DX: N39.0 Urinary tract infection, site not specified (principal); E87.0 Hyperosmolality and hypernatremia; E11.65 Type 2 diabetes mellitus with hyperglycemia; I69.354 Hemiplegia and hemiparesis following cerebral infarction affecting left non-dominant side; E86.0 Dehydration; I10 Essential (primary) hypertension; E78.5 Hyperlipidemia, unspecified; Z79.84 Long term (current) use of oral hypoglycemic drugs
CPT/HCPCS: 36415-UA; 70450-TC; 71010-TC; 80048-TC; 80053-TC; 80061-TC; 81001-TC; 82948-90; 83036-90; 83605; 84443-TC; 84484-TC; 85025-TC; 85610-TC; 87070; 87086-90; 93005; 94760; J1815; J1956; J2060; J7030; J7613; Z7610

== ENCOUNTER 2017-07-06 20:43 | Inpatient (IN) | payer MEDICARE, MEDICAID ==
[2017-07-06] MEDS ORDERED: Levofloxacin 500mg/100mL 500 MG/100 ML BAG IV ONE ×2 (20:55→22:15)
[2017-07-06 21:29] LABS: % BASOPHILS 1.2 % (0.0-2.0); % EOSINOPHILS 4.7 % (0.0-5.0); % LYMPHOCYTES 18.6 % (20.0-50.0); % MONOCYTES 7.7 % (2.0-10.0); % NEUTROPHILS 67.8 % (40.0-80.0); HEMATOCRIT 39.3 % (41.0-60); HEMOGLOBIN 13.2 gm/dL (12-16); MEAN CELL VOLUME 87.9 fl (80-99); MEAN CORPUSCULAR HEMOGLOBIN 29.5 pg (27.0-31.0); MEAN CORPUSCULAR HGB CONC 33.6 pg (28.0-36.0); MEAN PLATELET VOLUME 8.5 fl; NEUTROPHILE ABSOLUTE 6.7 Th/cmm (1.8-8.0); RED BLOOD COUNT 4.48 Mil/cmm (3.80-5.80); RED CELL DISTRIBUTION WIDTH 15.2 % (11.5-20.0)
[2017-07-06 21:32] LABS: PLATELET COUNT 331 Th/cmm (150-400); WHITE BLOOD COUNT 9.9 Th/cmm (4.8-10.8)
[2017-07-06 21:46] LABS: ALB/GLOB RATIO 0.8 (1.0-1.8); ALKALINE PHOSPHATASE 92 U/L (34-104); BILIRUBIN,TOTAL 0.5 mg/dL (0.3-1.0); BUN - UREA NITROGEN 21 mg/dL (7-25); CALCIUM SERUM 9.3 mg/dL (8.6-10.3); CARBON DIOXIDE 25.7 mEq/L (21.0-31.0); CHOLESTEROL 183 mg/dL (<200); CREATININE - SERUM 0.6 mg/dL (0.7-1.3); GLUCOSE 118 mg/dL (70-105); INR 1.01 (0.5-1.4); PROTHROMBIN TIME (TEST) 10.5 SECONDS (9.5-11.5); SGOT 61 U/L (13-39); SGPT/ALT 19 U/L (7-52); TRIGLYCERIDES 225 mg/dL (<150)
[2017-07-06 22:22] LABS: ANION GAP 9.4 (7.0-16.0); CHLORIDE 101 mEq/L (98-107); SODIUM SERUM 132 mEq/L (136-145)
[2017-07-06 22:26] LABS: POTASSIUM SERUM 4.1 mEq/L (3.5-5.1)
--- NOTE | 2017-07-06 23:32 | ED Physician Chart ---
ED Chief Complaint/HPI - Patient Information Date Seen:: 07/06/17 Time Seen:: 20:45 Chief Complaint:: Fever History of Present Illness:: onset x one week of cough, fever, and congestion; no H/As, neck pain, C/P, SOB, Abd. Pain, Flank pain, A/N/V/D/C, chills, or urinary s/s Allergies:: Allergies Allergy/AdvReac Type Severity Reaction Status Date / Time No Known Allergies Allergy Verified 06/07/17 13:22 Vitals:: Vital Signs - 8 hr 07/06/17 07/06/17 20:43 23:17 Temp 97.2 F 96.8 F HR 96 104 RR 20 18 BP 116/69 126/71 O2 Sat % 96 94 Historian:: Patient, EMS Review:: Nurse's Note Reviewed, EMS run form Reviewed, Transfer documents Reviewed ED Review of Systems - Review of Systems General/Constitutional: Fever, Chills, No weight loss, Weakness, No diaphoresis , No edema, No loss of appetite Skin: No skin lesions, Rash, No bruising Head: No headache, No light-headedness Eyes: No loss of vision, No pain, No diplopia ENT: No earache, Nasal drainage, No sore throat, No tinnitus Neck: No neck pain, No swelling, No thyromegaly, No stiffness, No mass noted Cardio Vascular: No chest pain, No palpitations, No PND, No orthopnea, No edema Pulmonary: No SOB, Cough, No sputum, No wheezing GI: No nausea, No vomiting, No diarrhea, No pain, No melena, No hematochezia, No constipation, No hematemesis G/U: No dysuria, No frequency, No hematuria Musculoskeletal: No bone or joint pain, No back pain, No muscle pain Endocrine: No polyuria, No polydipsia Psychiatric: No prior psych history, No depression, No anxiety, No suicidal ideation Hematopoietic: No bruising, No lymphadenopathy Allergic/Immuno: No urticaria, No angioedema Neurological: No syncope, Focal symptoms, Weakness, Paresthesia, No headache, No seizure, Dizziness, Confusion, Vertigo ED Past Medical History - Past Medical History Obtainable: Yes Past Medical History: HTN, DM, CAD, CVA/TIA, Dyslipidemia Family History: Diabetes Melitus, HTN Social History: Non Smoker, No Alcohol, No Drug Use, Single, Care Facility Surgical History: None Psychiatricy History: Other (Anxiety) Medication: Reviewed Family Medical History - Family Member Mother History Unknown: Yes ED Physical Exam - Physical Examination General/Constitutional: Awake, Well-developed, well-nourished, Alert, No distress, GCS 15, Non-toxic appearing, Ambulatory Head: Atraumatic Eyes: Lids, conjuctiva normal, PERRL, EOMI Skin: Nl inspection, No rash, No skin lesions, No ecchymosis, Well hydrated, No lymphadenopathy ENMT: External ears, nose nl, Nasal exam nl, Lips, teeth, gums nl Neck: Nontender, Full ROM w/o pain, No JVD, No nuchal rigidity, No bruit, No mass, No stridor Respiratory: Nl effort/Exclusion Other Respiratory comments:: Lungs: + Rales Cardio Vascular: RRR, No murmur, gallop, rubs, NL S1 S2 GI: No tenderness/rebounding/guarding, No organomegaly, No hernia, Normal BS's, Nondistended, No mass/bruits, No McBurney tenderness : No CVA tenderness Extremities: No tenderness or effusion, Full ROM, normal strength in all extremities, No edema, Normal digits & nails Neuro/Psych: Alert/oriented, DTR's symmetric, Normal sensory exam, Normal motor strength, Judgement/insight normal, Mood normal, Normal gait, No focal deficits Misc: Normal back, No paraspinal tenderness ED Labs/Radiology/EKG Results - Lab Results Results: Laboratory Tests 07/06/17 07/06/17 07/06/17 21:20 21:20 21:20 WBC 9.9 D RBC 4.48 Hgb 13.2 Hct 39.3 L MCV 87.9 MCH 29.5 MCHC Differential 33.6 RDW 15.2 Plt Count 331 D MPV 8.5 Neutrophils % 67.8 Lymphocytes % 18.6 L Monocytes % 7.7 Eosinophils % 4.7 Basophils % 1.2 PT INR PTT (Actin FS) Sodium 132 L Potassium 4.1 Chloride 101 Carbon Dioxide 25.7 Anion Gap 9.4 BUN 21 Creatinine 0.6 L Est GFR ( Amer) TNP Est GFR (Non-Af Amer) TNP BUN/Creatinine Ratio 35.0 Glucose 118 H Whole Bld Lactic Acid Calcium 9.3 Total Bilirubin 0.5 AST 61 H ALT 19 Alkaline Phosphatase 92 Creatine Kinase 96 Troponin I B-Natriuretic Peptide 537.0 H Total Protein 8.3 Albumin 3.6 L Globulin 4.7 Albumin/Globulin Ratio 0.8 L Triglycerides 225 H Cholesterol 183 LDL Cholesterol Direct 102 HDL Cholesterol 34 07/06/17 07/06/17 07/06/17 21:20 21:20 21:20 WBC RBC Hgb Hct MCV MCH MCHC Differential RDW Plt Count MPV Neutrophils % Lymphocytes % Monocytes % Eosinophils % Basophils % PT 10.5 INR 1.01 PTT (Actin FS) 25.4 L Sodium Potassium Chloride Carbon Dioxide Anion Gap BUN Creatinine Est GFR ( Amer) Est GFR (Non-Af Amer) BUN/Creatinine Ratio Glucose Whole Bld Lactic Acid 1.91 Calcium Total Bilirubin AST ALT Alkaline Phosphatase Creatine Kinase Troponin I 0.02 B-Natriuretic Peptide Total Protein Albumin Globulin Albumin/Globulin Ratio Triglycerides Cholesterol LDL Cholesterol Direct HDL Cholesterol Comments:: Na+: 132;BNP: 537 - Radiology Results Comments:: CXR: + Infiltrate; CHF - EKG Interpretations EKG Time:: 21:11 Rate & Rhythm: 96; NSR Comments:: nonspecific st-t changes ED Septic Shock - . Is Septic Shock (SBP<90, OR Lactate>4 mmol\L) present?: No - <6hrs of presentation: Vital Signs: Vital Signs - 8 hr 07/06/17 07/06/17 20:43 23:17 Temp 97.2 F 96.8 F HR 96 104 RR 20 18 BP 116/69 126/71 O2 Sat % 96 94 ED Reassessment (Disposition) - Reassessment Reassessment Condition:: Improved - Diagnosis Diagnosis:: Dx: Hyponatremia; CHF; PNA; Sepsis; - Aftercare/Follow up Instructions Aftercare/Follow-Up Instructions:: Counseled pt regarding lab results/diagnosis & need follow up, Counseled pt & family regarding lab results/diagnosis & need follow up - Patient Disposition Discharge/Transfer:: Acute Care w/in this hosp Accepting Physician:: Dr. Mcgowan Time Called:: [id number] Time Responded:: 22:30 Admitted to:: Telemetry Spoke to:: Dr. Mcgowan Admitting Medical Physician:: Dr. Mcgowan Condition at Disposition:: Stable, Improved
[2017-07-07] MEDS ORDERED: Pneumococcal Vaccine 0.5 mL Vial IM ONE (04:31)
--- NOTE | 2017-07-07 07:44 | Diagnostic Imaging Report ---
CHEST X-RAY: AP view INDICATION: pain, cough COMPARISON: 06/07/2017 FINDINGS: Patient is rotated. Bibasal atelectatic changes are seen. No focal consolidation or pleural effusions. Chronic lung changes are noted. Borderline prominent heart is noted. Degenerative changes of the spine are noted. IMPRESSION: Limited exam due to rotation. Bibasal atelectatic changes are seen with no focal consolidation identified. Borderline prominent heart.
[2017-07-07] MEDS ORDERED: Non-Formulary Item 1 EA (Docusate Sodium 100 MG) GT SCH (09:00)
[2017-07-07] MEDS ORDERED: WARFARIN SODIUM 6 MG GT SCH (09:00)
[2017-07-07] MEDS ORDERED: Non-Formulary Item 1 EA (Zinc Sulfate [Zinc Sulfate] 220 MG) GT SCH (09:00)
[2017-07-07] MEDS ORDERED: Non-Formulary Item 1 EA (Vit C/Ascorbate Ca/Ascorb Sod [Vitamin C 500 Mg/15 Ml Liquid] 500 GT SCH (09:00)
[2017-07-07] MEDS: Sodium Chloride 0.9% 1,000 ML IV SCH (09:25)
[2017-07-07] MEDS: Multivitamin w/ Minerals Tab GT SCH (10:17)
[2017-07-07] MEDS: Lactobacillus Rhamnosus 10 Billion CFU Capsule GT SCH (10:17)
[2017-07-07] MEDS: Potassium Chloride Elixir 20 mEq /15 mL UDC GT SCH (10:18)
[2017-07-07] MEDS: Venelex 60gm Tube TP SCH ×3 (10:19→22:18)
[2017-07-07] MEDS: INSULIN ASPART SLIDING SCALE 100 UNITS/ML UNIT SUBQ SCH ×3 (12:05→22:21)
[2017-07-07] MEDS: Albuterol/Ipratropium Neb 3 ML AERS HHN SCH ×4 (13:25→22:35)
[2017-07-07] MEDS ORDERED: Morphine Sulfate 2 mg/mL 1mL Syr IVP PRN ×2 (15:40→15:41)
--- NOTE | 2017-07-07 16:13 | Consultation ---
Consult Note - Consult Note Service Date: 07/07/17 Referring Physician: Latha Mcgowan Consult Note: PHYSICIAN Consultation Note: Date of Admission: 07/06/17 Purpose of Consultation: Chief Complaint: Patient PINKY REYNOLDS was admitted to [facility] Telemetry with PNA. History of Present Illness: 76 year male presented to the ER for cough, congestion for one week. He was found to have left heel dry wound with mild erythema. He was started on Zosyn. He remains afebrile. He c/oo severe pain in his left ankle. ID consult was called for antibiotic management. Past Medical History: HTN, DM, CAD, CVA/TIA, Dyslipidemia, Dementia. Allergies Allergy/AdvReac Type Severity Reaction Status Date / Time No Known Allergies Allergy Verified 06/07/17 13:22 Vital Signs Temp 98.2 F 07/07/17 11:52 Pulse 123 07/07/17 13:55 Resp 20 07/07/17 13:25 BP 131/80 07/07/17 13:55 Pulse Ox 92 07/07/17 13:25 Intake & Output 07/06/17 07/07/17 07/07/17 18:59 06:59 18:59 Intake Total 100 Balance 100 Intake: Intake, IV Amount 100 Other: Stool Characteristics Soft Formed Laboratory Results - last 24 hr 07/07/17 11:52 POC Glucose 217 H Home Medication Medication Instructions Recorded Type Acetaminophen [Tylenol 650 mg PO Q6HR PRN MDD fever 06/07/17 History 650mg/20.3mL Suspension] Docusate Sodium [Colace] 100 mg GT DAILY 06/07/17 History Metoprolol Tartrate [Lopressor] 25 mg GT Q8HR 06/07/17 History Simvastatin [Zocor*] 25 mg GT HS 06/07/17 History Vit C/Ascorbate Ca/Ascorb Sod 500 mg GT DAILY 06/07/17 History [Vitamin C 500 mg/15 ml Liquid] Zinc Sulfate 220 mg GT DAILY 06/07/17 History metFORMIN [Glucophage] 500 mg GT BID 06/07/17 History Acetaminophen [Tylenol] 650 mg PO Q6HR PRN MDD NTE 3 grams 07/06/17 History in 24hr Balsam [place] Oil [Venelex] 1 appl TP TID 07/06/17 History Glipizide [Glucotrol] 10 mg GT DAILY 07/06/17 History Hydrocortisone 2.5% Cream 1 applic TP BID PRN 07/06/17 History [Hydrocortisone 2.5%] Insulin Aspart Sliding Scale 1 units SQ ACHS 07/06/17 History [NovoLOG INSULIN SLIDING SCALE] Insulin Detemir [Levemir] 10 units SQ HS 07/06/17 History Lactobacillus Rhamnosus 1 each GT DAILY 07/06/17 History [Culturelle] Multivitamin with Minerals 2 tab GT DAILY 07/06/17 History [Multivitamins with Minerals] Warfarin Sodium [Coumadin] 6 mg GT DAILY 07/06/17 History Current Medications Generic Name Dose Route Start Last Admin Trade Name Freq PRN Reason Stop Dose Admin Acetaminophen 650 mg 07/07/17 07:34 Tylenol PO 09/05/17 07:33 Q6HR PRN Pain (Mild) Albuterol/Ipratropium 3 ml 07/07/17 11:00 07/07/17 13:25 Duoneb Neb HHN 09/05/17 10:59 3 ml Q4HRT RAYMUNDO Administration Ascorbic Acid 500 mg 07/08/17 09:00 Vitamin C PO 09/06/17 08:59 DAILY RAYMUNDO Docusate Sodium 100 mg 07/08/17 09:00 Colace PO 09/06/17 08:59 DAILY RAYMUNDO Furosemide 40 mg 07/07/17 09:00 07/07/17 10:17 Lasix IVP 09/05/17 08:59 40 mg DAILY RAYMUNDO Administration Glipizide 10 mg 07/07/17 09:00 07/07/17 10:17 Glucotrol GT 09/05/17 08:59 10 mg DAILY RAYMUNDO Administration Hydrocortisone 1 appl 07/07/17 07:34 Hydrocortisone 2.5% TP 09/05/17 07:33 BID PRN Itching Sodium Chloride 1,000 mls @ 70 mls/hr 07/07/17 08:25 07/07/17 09:25 Nacl 0.9% IV 09/05/17 08:24 70 mls/hr .[id number] RAYMUNDO Administration Piperacillin Sod/Tazobactam 50 mls @ 50 mls/hr 07/07/17 14:00 07/07/17 15:09 Sod 4.5 gm/ Sodium Chloride IV 09/05/17 13:59 50 mls/hr Q8HR RAYMUNDO Administration Insulin Aspart 0 units 07/07/17 11:30 07/07/17 12:05 Novolog Insulin Sliding Scale SUBQ 09/05/17 11:29 4 units ACHS RAYMUNDO Administration Protocol Insulin Detemir 10 units 07/07/17 21:00 Levemir Insulin SUBQ 09/05/17 20:59 HS [facility] Protocol Lactobacillus Rhamnosus 1 each 07/07/17 09:00 07/07/17 10:17 Culturelle GT 09/05/17 08:59 1 each DAILY RAYMUNDO Administration Metformin HCl 500 mg 07/07/17 09:00 07/07/17 10:17 Glucophage GT 09/05/17 08:59 500 mg BID RAYMUNDO Administration Metoprolol Tartrate 25 mg 07/07/17 13:00 07/07/17 13:55 Lopressor GT 09/05/17 12:59 25 mg Q8HR RAYMUNDO Administration Morphine Sulfate 1 mg 07/07/17 15:40 Morphine IVP 09/05/17 15:39 Q4HR PRN MODERATE PAIN Morphine Sulfate 2 mg 07/07/17 15:41 Morphine IVP 09/05/17 15:40 Q4HR PRN Severe Pain Potassium Chloride 20 meq 07/07/17 09:00 07/07/17 10:18 Potassium Chloride Elixir GT 09/05/17 08:59 20 meq DAILY RAYMUNDO Administration Simvastatin 25 mg 07/07/17 21:00 Zocor GT 09/05/17 20:59 HS [facility] Protocol Warfarin Sodium 6 mg 07/07/17 13:00 07/07/17 13:55 Coumadin PO 09/05/17 12:59 6 mg 1300 RAYMUNDO Administration Zinc Sulfate 220 mg 07/08/17 09:00 Zinc Sulfate PO 09/06/17 08:59 DAILY RAYMUNDO Review of Systems: A 12 point ROS was reviewed with the pertinent positive and negatives noted in the HPI. Physical Exam: General: Comfortable, in pain. HEENT: Head is normocephalic, atraumatic. Oral cavity moist. Thrush present, eyes pallor is present. icterus. Neck: Supple, No JVD. Cardio: S1 and S2 WNL.no murmur. Respiratory: vesicular breath sounds. crackles present. Abdominal: soft, NT ND BS present. G tube site clean. Genital/Urinary: deferred. Extremities: NCCE. Left heel wound with dry necrotic slough, mild erythema. Neurological: AAO x 3. Assessment: 1. Aspiration pneumonia 2. Left heel ulcer, r/o osteomyelitis. 3. DM2. 4. HTN. Plan: Wound care, esr crp 3 phase bone scan. Thank you Dr Mcgowan for involving me in taking care of this patient. Signed, Dionicio Harry M.D. 07/07/[id number]
[2017-07-07] MEDS: Insulin Detemir 100 units/mL 10mL Vial SUBQ SCH (22:20)
--- NOTE | 2017-07-08 | Consultation ---
DATE OF CONSULTATION: 07/07/2017 HISTORY AND PHYSICAL: This is a 76-year-old male patient came to the Emergency Room complaining of cough, congestion, and fever. The patient was found to have left heel ulcer, possible osteomyelitis. The patient was found to have acute respiratory failure with aspiration pneumonia, congestive heart failure with BNP elevated. His cardiac consult is requested. PAST MEDICAL HISTORY: Hypertension, stable angina, CVA with late effect, hyperlipidemia, diabetes mellitus type 2, insulin-dependent diabetes mellitus, and left heel ulcer. FAMILY HISTORY: Unremarkable. SOCIAL HISTORY: No history of smoking or alcohol abuse. ALLERGIES: None. PHYSICAL EXAMINATION: VITAL SIGNS: Blood pressure 130/80, pulse 70, and respirations 20. HEAD: Normocephalic. No lumps or bumps. EYES: Pupils are equal and reactive to light. Fundi show AV nicking, sclerae white, and conjunctivae pink. NECK: Carotid 2+. Normal upstroke. JVD 10 cm above the sternal angle. Thyroid not palpable. Lymph nodes not palpable. CHEST: Shows increased AP diameter. No kyphosis or scoliosis. LUNGS: Bilateral bronchovesicular breath sounds. Bilateral rales. Decreased breath sounds at both the bases. HEART: PMI fifth intercostal space with lateral to midclavicular line. S1, S2, S3, S4, soft systolic murmur. ABDOMEN: Soft. Liver and spleen not palpable. Hepatojugular reflux positive, bowel sounds active. RECTAL: Deferred. EXTREMITIES: Peripheral pulses 1+, pedal edema 1+, left heel ulcer. CLINICAL IMPRESSION: Aspiration pneumonia, congestive heart failure, diastolic dysfunction, acute hypertension, stable angina, cerebrovascular accident with late effect, hyperlipidemia, diabetes mellitus type 2, insulin-dependent diabetes mellitus, left heel ulcer, and possible osteomyelitis. PLAN: We will continue the patient on IV antibiotics and start the patient on preload and afterload reduction and also get an echocardiogram to evaluate left ventricular function. JOB# [id number]
[2017-07-08] MEDS: Sodium Chloride 0.9% 1,000 ML IV SCH ×2 (02:11→21:41)
[2017-07-08] MEDS: Albuterol/Ipratropium Neb 3 ML AERS HHN SCH ×6 (02:48→22:35)
[2017-07-08 05:30] LABS: ANION GAP 10.1 (7.0-16.0); BUN - UREA NITROGEN 23 mg/dL (7-25); BUN/CREATININE RATIO 32.9; CALCIUM SERUM 8.9 mg/dL (8.6-10.3); CARBON DIOXIDE 27.4 mEq/L (21.0-31.0); CHLORIDE 104 mEq/L (98-107); CREATININE - SERUM 0.7 mg/dL (0.7-1.3); GLUCOSE 172 mg/dL (70-105); POTASSIUM SERUM 3.5 mEq/L (3.5-5.1); SODIUM SERUM 138 mEq/L (136-145)
[2017-07-08] MEDS: INSULIN ASPART SLIDING SCALE 100 UNITS/ML UNIT SUBQ SCH ×4 (06:31→21:40)
[2017-07-08] MEDS: Multivitamin w/ Minerals Tab GT SCH (09:41)
[2017-07-08] MEDS: Lactobacillus Rhamnosus 10 Billion CFU Capsule GT SCH (09:41)
[2017-07-08] MEDS: Potassium Chloride Elixir 20 mEq /15 mL UDC GT SCH (09:42)
[2017-07-08] MEDS: Venelex 60gm Tube TP SCH ×3 (09:47→21:43)
--- NOTE | 2017-07-08 12:36 | Infectious Disease Prog Note ---
Infectious Disease Subjective - Review of Systems Service Date: 07/08/17 Subjective: There is no new change, there is no fever. Infectious Disease Objective - Results Result Diagrams: 07/06/17 21:20 07/08/17 04:32 Recent Labs: Laboratory Last Values WBC 9.9 Th/cmm (4.8-10.8) D 07/06/17 21:20 RBC 4.48 Mil/cmm (3.80-5.80) 07/06/17 21:20 Hgb 13.2 gm/dL (12-16) 07/06/17 21:20 Hct 39.3 % (41.0-60) L 07/06/17 21:20 MCV 87.9 fl (80-99) 07/06/17 21:20 MCH 29.5 pg (27.0-31.0) 07/06/17 21:20 MCHC Differential 33.6 pg (28.0-36.0) 07/06/17 21:20 RDW 15.2 % (11.5-20.0) 07/06/17 21:20 Plt Count 331 Th/cmm (150-400) D 07/06/17 21:20 MPV 8.5 fl 07/06/17 21:20 Neutrophils % 67.8 % (40.0-80.0) 07/06/17 21:20 Lymphocytes % 18.6 % (20.0-50.0) L 07/06/17 21:20 Monocytes % 7.7 % (2.0-10.0) 07/06/17 21:20 Eosinophils % 4.7 % (0.0-5.0) 07/06/17 21:20 Basophils % 1.2 % (0.0-2.0) 07/06/17 21:20 ESR 99 mm/hr (0-20) H 07/08/17 04:32 PT 10.5 SECONDS (9.5-11.5) 07/06/17 21:20 INR 1.01 (0.5-1.4) 07/06/17 21:20 PTT (Actin FS) 25.4 SECONDS (26.0-38.0) L 07/06/17 21:20 Sodium 138 mEq/L (136-145) 07/08/17 04:32 Potassium 3.5 mEq/L (3.5-5.1) 07/08/17 04:32 Chloride 104 mEq/L (98-107) 07/08/17 04:32 Carbon Dioxide 27.4 mEq/L (21.0-31.0) 07/08/17 04:32 Anion Gap 10.1 (7.0-16.0) 07/08/17 04:32 BUN 23 mg/dL (7-25) 07/08/17 04:32 Creatinine 0.7 mg/dL (0.7-1.3) 07/08/17 04:32 Est GFR ( Amer) TNP 07/08/17 04:32 Est GFR (Non-Af Amer) TNP 07/08/17 04:32 BUN/Creatinine Ratio 32.9 07/08/17 04:32 Glucose 172 mg/dL (70-105) H 07/08/17 04:32 POC Glucose 159 MG/DL (70 - 105) H 07/08/17 11:47 Hemoglobin A1c % 8.8 % (4.0-6.0) H 07/06/17 21:20 Whole Bld Lactic Acid 1.91 mmol/L (0.60-1.99) 07/06/17 21:20 Calcium 8.9 mg/dL (8.6-10.3) 07/08/17 04:32 Total Bilirubin 0.5 mg/dL (0.3-1.0) 07/06/17 21:20 AST 61 U/L (13-39) H 07/06/17 21:20 ALT 19 U/L (7-52) 07/06/17 21:20 Alkaline Phosphatase 92 U/L (34-104) 07/06/17 21:20 Creatine Kinase 96 U/L (30-223) 07/06/17 21:20 Troponin I 0.02 ng/mL (0.01-0.05) 07/06/17 21:20 C-Reactive Protein 7.2 mg/dL (0.0-0.9) H 07/08/17 04:32 B-Natriuretic Peptide 225.0 pg/mL (5.0-100.0) H 07/08/17 04:32 Total Protein 8.3 gm/dL (6.0-8.3) 07/06/17 21:20 Albumin 3.6 gm/dL (4.2-5.5) L 07/06/17 21:20 Globulin 4.7 gm/dL 07/06/17 21:20 Albumin/Globulin Ratio 0.8 (1.0-1.8) L 07/06/17 21:20 Triglycerides 225 mg/dL (<150) H 07/06/17 21:20 Cholesterol 183 mg/dL (<200) 07/06/17 21:20 LDL Cholesterol Direct 102 mg/dL (75-193) 07/06/17 21:20 HDL Cholesterol 34 mg/dL (23-92) 07/06/17 21:20 - Physical Exam Vitals and I&O: Vital Signs Temp 98.3 F 07/08/17 09:00 Pulse 114 07/08/17 11:40 Resp 18 07/08/17 11:40 BP 116/74 07/08/17 09:42 Pulse Ox 97 07/08/17 11:40 Intake & Output 07/07/17 07/08/17 07/08/17 18:59 06:59 18:59 Intake Total 50 750 Balance 50 750 Weight (lbs) 58.831 kg Intake: Intake, IV Amount 50 100 Piperacillin Sodium/ 50 100 Tazobact 4.5 gm In Sodium Chloride 0.9% 50 ml @ 50 mls/hr IV Q8HR COUNTS INCLUDE 234 BEDS AT THE [facility] Rx#: [id number] Tube Feeding 650 Other: # Voids 2 # Bowel Movements 1 Stool Characteristics Soft Soft Soft Formed Brown Brown Active Medications: Current Medications Acetaminophen (Tylenol) 650 mg PO Q6HR PRN PRN Reason: Pain (Mild) Stop: 09/05/17 07:33 Albuterol/Ipratropium (Duoneb Neb) 3 ml HHN Q4HRT COUNTS INCLUDE 234 BEDS AT THE [facility] Stop: 09/05/17 10:59 Last Admin: 07/08/17 11:40 Dose: 3 ml Ascorbic Acid (Vitamin C) 500 mg PO DAILY COUNTS INCLUDE 234 BEDS AT THE [facility] Stop: 09/06/17 08:59 Last Admin: 07/08/17 09:42 Dose: 500 mg Docusate Sodium (Colace) 100 mg PO DAILY COUNTS INCLUDE 234 BEDS AT THE [facility] Stop: 09/06/17 08:59 Last Admin: 07/08/17 09:42 Dose: 100 mg Furosemide (Lasix) 40 mg IVP DAILY COUNTS INCLUDE 234 BEDS AT THE [facility] Stop: 09/05/17 08:59 Last Admin: 07/08/17 09:42 Dose: 40 mg Glipizide (Glucotrol) 10 mg GT DAILY COUNTS INCLUDE 234 BEDS AT THE [facility] Stop: 09/05/17 08:59 Last Admin: 07/08/17 09:41 Dose: 10 mg Hydrocortisone (Hydrocortisone 2.5%) 1 appl TP BID PRN PRN Reason: Itching Stop: 09/05/17 07:33 Last Admin: 07/08/17 09:47 Dose: 1 appl Sodium Chloride (Nacl 0.9%) 1,000 mls @ 70 mls/hr IV .[id number] COUNTS INCLUDE 234 BEDS AT THE [facility] Stop: 09/05/17 08:24 Last Admin: 07/08/17 02:11 Dose: Not Given Piperacillin Sod/Tazobactam (Sod 4.5 gm/ Sodium Chloride) 50 mls @ 50 mls/hr IV Q8HR COUNTS INCLUDE 234 BEDS AT THE [facility] Stop: 09/05/17 13:59 Last Infusion: 07/08/17 06:52 Dose: Infused Insulin Aspart (Novolog Insulin Sliding Scale) 0 units SUBQ ACHS RAYMUNDO PRN Reason: Protocol Stop: 09/05/17 11:29 Last Admin: 07/08/17 11:54 Dose: Not Given Insulin Detemir (Levemir Insulin) 10 units SUBQ HS RAYMUNDO PRN Reason: Protocol Stop: 09/05/17 20:59 Last Admin: 07/07/17 22:20 Dose: 10 units Lactobacillus Rhamnosus (Culturelle) 1 each GT DAILY COUNTS INCLUDE 234 BEDS AT THE [facility] Stop: 09/05/17 08:59 Last Admin: 07/08/17 09:41 Dose: 1 each Metformin HCl (Glucophage) 500 mg GT BID COUNTS INCLUDE 234 BEDS AT THE [facility] Stop: 09/05/17 08:59 Last Admin: 07/08/17 09:43 Dose: 500 mg Metoprolol Tartrate (Lopressor) 25 mg GT Q8HR COUNTS INCLUDE 234 BEDS AT THE [facility] Stop: 09/05/17 12:59 Last Admin: 07/08/17 05:52 Dose: 25 mg Morphine Sulfate (Morphine) 1 mg IVP Q4HR PRN PRN Reason: MODERATE PAIN Stop: 09/05/17 15:39 Last Admin: 07/07/17 22:17 Dose: 1 mg Morphine Sulfate (Morphine) 2 mg IVP Q4HR PRN PRN Reason: Severe Pain Stop: 09/05/17 15:40 Last Admin: 07/08/17 03:51 Dose: 2 mg Potassium Chloride (Potassium Chloride Elixir) 20 meq GT DAILY COUNTS INCLUDE 234 BEDS AT THE [facility] Stop: 09/05/17 08:59 Last Admin: 07/08/17 09:42 Dose: 20 meq Simvastatin (Zocor) 25 mg GT HS COUNTS INCLUDE 234 BEDS AT THE [facility] PRN Reason: Protocol Stop: 09/05/17 20:59 Last Admin: 07/07/17 21:34 Dose: 25 mg Warfarin Sodium (Coumadin) 6 mg PO 1300 RAYMUNDO Stop: 09/05/17 12:59 Last Admin: 07/07/17 13:55 Dose: 6 mg Zinc Sulfate (Zinc Sulfate) 220 mg PO DAILY COUNTS INCLUDE 234 BEDS AT THE [facility] Stop: 09/06/17 08:59 Last Admin: 07/08/17 09:41 Dose: 220 mg General: no acute distress, cachectic HEENT: atraumatic, normocephalic, PERRLA, EOMI, moist mucous membrane Neck: supple, thyromegaly Cardiovascular: S1S2, regular Lungs: clear to auscultation bilaterally, clear to percussion Abdomen: soft, no tender, no distended Extremities: other (Left heel wound.), no cyanosis, no clubbing, no edema Neurological: awake, alert, oriented, CN 2-12 intact Infectious Disease Assmt/Plan - Problem List Patient Problems: All Active Problems Chest congestion (Acute) R09.89 Rash (Acute) R21 - Assessment Assessment: 1. Aspiration pneumonia 2. Left heel ulcer, r/o osteomyelitis. ESR 99, CRP 7.2 3. DM2. 4. HTN. - Plan Plan: Continue zosyn. 3P bone scan,. Wound care. Nutritional Asmnt/Malnutr-PDOC - Dietary Evaluation Malnutrition Findings (Please click <Entered> for more info): Nutritional Asmnt/Malnutrition Start: 07/07/17 14: 45 Text: Status: Complete Freq: Document 07/07/17 14:45 WENDI (Rec: 07/07/17 14:55 WENDI [email or web address]) Nutritional Asmnt/Malnutrition Patient General Information Nutritional Screening Consult Diagnosis Pneumonia/hyponatremia/CHF/ pneumonia/sepsis Pertinent Medical Hx/Surgical Hx HTN, DM, CAD, CVA, TIA, dyslipidemia per MD notes Subjective Information RD received Nutrition Consult for pt on GTF, blood sugar 194 upon admit and unstageable pressure ulcer L heel. Pt seen resting in bed w/ TF infusing as per MD orders w/ daughter providing hygiene care at time of RD visit. Per RN, pt has been tolerating TF well so far. RN also reported BM x1 (soft stool). Current TF regimen does not meet optimal nutritional needs . Currently, pt is receiving 1800 kcal/daym 90 gm protein/ day, and 1227 ml free water/ day. This meets 86% of lower end of estimated caloric and protein needs. Pt is not appropriate for nutrition education. Current Diet Order/ Nutrition Support Diabetisource AC at 75 cc/hr x20 hours Patient / S.O Can't verbalize diet edu Pertinent Medications lasix, glipizide, culturelle, glucophage Pertinent Labs 07/06/17: Na 132 L, BG 118 H, CRE 0.6 L, HgA1c 8.8 H, ALB 3. 6 L, AST 61 H, TG 225 H Nutritional Hx/Data Height 1.68 m Height (Calculated Centimeters) 167.6 Current Weight (lbs) 69.4 kg Weight (Calculated Kilograms) 69.4 Weight (Calculated Grams) 38324.6 [place] Body Weight 142 lb, 65 kg % [place] Body Weight 108 Recent Weight Change No Weight Status Approriate GI Symptoms GI Symptoms None Food Allergies No Skin Integrity/Comment: Darrel scale: 12; per RN report, pt has a L foot wound Estimated Nutritional Goals BEE in Kcals: Using Current wt Calories/Kcals/Kg 30-35 kcal/kg CBW for sepsis, wound healing Kcals Calculated 6969-0317 kcal/day Protein: Using Current wt Protein g/k.5-2 gm/kg CBW for sepsis, wound healing Protein Calculated 105-140 gm/day Fluid: ml Per MD (CHF) Nutritional Problem 1. Problem Problem Increased nutritional needs Etiology related to metabolic demands Signs/Symptoms: as evidenced by estimated nutritional requirements for sepsis and wound healing. Malnutrition Alert Is there a minimum of two criteria No selected? Query Text:Check all the applicable criteria. A minimum of two criteria are recommended for diagnosis of either severe or non-severe malnutrition. Malnutrition Related to Morbid Obesity Malnutrition related to morbid obesity No Intervention/Recommendation Recommendations by RD Increase Calorie Intake Protein supplementation Comments * Recommend Diabetisource AC at 75 ml/hr x24 hours via GT Provides: 2160 kcal/day, 108 gm protein/day, and 1472 ml free water/day Meets: 103% of lower end of estimated caloric and protein needs Expected Outcomes/Goals Expected Outcomes/Goals - Monitor tolerance to EN support w/ goal of pt meeting at least 100% of estimated nutritional needs, labs trending WNL, normal GI function, and skin integrity/ wt maintenance within 2-3 days
[2017-07-08] MEDS ORDERED: Triple Antibiotic 0.94 gm Pkt TP ONE ×2 (13:40→14:08)
[2017-07-08] MEDS ORDERED: Midazolam 1mg/ml 2 ml vial IV ONE (13:54)
--- NOTE | 2017-07-08 14:30 | Operative Report ---
DATE OF SURGERY: 07/08/2017 PREOPERATIVE DIAGNOSES: 1. Stage II left heel decubitus ulcer. 2. Dementia. 3. Coronary artery disease. 4. Hypertension. POSTOPERATIVE DIAGNOSES: 1. Stage II left heel decubitus ulcer. 2. Dementia. 3. Coronary artery disease. 4. Hypertension. OPERATION DONE: Excisional debridement of left heel ulcer. SURGEON: Annetta Omer M.D. ANESTHESIA: MAC. ANESTHESIOLOGIST: Sarah Gonzalez M.D. Size of wound 3 x 2 cm. Depth is to the subcutaneous tissues. No blood loss. DESCRIPTION OF PROCEDURE: The patient was given IV sedation. The left heel was prepped with Betadine and draped. A 1% lidocaine was used to infiltrate the area around the ulcer. Excisional debridement carried out with scissors. Antibiotic ointment was applied and Optifoam. The patient tolerated the procedure well. JOB# [id number]
--- NOTE | 2017-07-08 15:13 | Consultation ---
DATE OF CONSULTATION: 07/08/2017 REFERRING PHYSICIAN: Dr. Mcgowan. REASON FOR CONSULTATION: Ulcer, left heel. HISTORY OF PRESENT ILLNESS: This is a 76-year-old male who came into the Emergency Room, apparently with cough and congestion for 1 week. He has left heel ulcer as well with edema surrounding this. PAST MEDICAL HISTORY: Includes CVA, TIA, diabetes mellitus, and hypertension. LABORATORY STUDIES: Show CBC to be essentially normal, the chemistry, blood sugar on admission was 256. Otherwise, values are essentially normal. The patient has been seen by 2 consultants, Cardiology and Infectious Disease. RECOMMENDATIONS: Debridement of the ulcer and local wound care, possibility of osteomyelitis. He will require additional studies including a bone scan. JOB# [id number]
--- NOTE | 2017-07-08 17:39 | Cardiology ---
07/08/[address] Mcgowan[address] M-MODE ECHOCARDIOGRAM: Mitral valve, anterior leaflet of mitral valve shows decreased excursion, EF velocity. Posterior leaflet of mitral valve shows decreased excursion. Left ventricular posterior wall shows increased thickness, decreased excursion. Interventricular septum shows increased thickness, decreased excursion, ejection fraction 30%. Left atrium enlarged at 4.1 cm. Aortic root shows normal dimension, normal excursion of aortic leaflets. CONCLUSION: Hypertrophy of the left ventricle, cardiomyopathy, ejection fraction 30%, left atrial enlargement. 2D ECHO: Long axis view shows enlarged left ventricular cavity with decreased ejection fraction, hypertrophy of the left ventricle, left atrial enlargement. Aortic root shows normal dimension, normal excursion of aortic leaflets. Short axis view of mitral valve normal. Short axis view of aortic valve normal. Apical four chamber view shows enlarged left ventricular cavity with ejection fraction 30%. Left atrium enlarged. Right ventricular cavity, right atrium normal, no pericardial effusion. CONCLUSION: Cardiomyopathy, hypertrophy of the left ventricle, left atrial enlargement, ejection fraction 30%. JOB# [id number]
[2017-07-08 18:29] LABS: URINE BILIRUBIN NEGATIVE (NEGATIVE); URINE BLOOD NEGATIVE (NEGATIVE); URINE GLUCOSE (UA) NEGATIVE (NEGATIVE); URINE KETONE NEGATIVE (NEGATIVE); URINE PH 6.5 (4.6 - 8.0); URINE PROTEIN NEGATIVE (NEGATIVE); URINE UROBILINOGEN 0.2 E.U./dL (0.2 - 1.0)
[2017-07-08 19:04] LABS: URINE COLOR YELLOW
[2017-07-08 19:05] LABS: URINE BACTERIA NONE SEEN /hpf (NONE SEEN); URINE EPITHELIAL CELLS NONE SEEN /lpf (FEW); URINE RBC NONE SEEN /hpf (0-5); URINE WBC NONE SEEN /hpf (0-5)
--- NOTE | 2017-07-08 20:05 | Internal Medicine Prog Note ---
Internal Medicine Subjective - Subjective Service Date: 07/08/17 ([facility] [id number]) Internal Medicine Objective - Results Result Diagrams: 07/06/17 21:20 07/08/17 04:32 Recent Labs: Laboratory Last Values WBC 9.9 Th/cmm (4.8-10.8) D 07/06/17 21:20 RBC 4.48 Mil/cmm (3.80-5.80) 07/06/17 21:20 Hgb 13.2 gm/dL (12-16) 07/06/17 21:20 Hct 39.3 % (41.0-60) L 07/06/17 21:20 MCV 87.9 fl (80-99) 07/06/17 21:20 MCH 29.5 pg (27.0-31.0) 07/06/17 21:20 MCHC Differential 33.6 pg (28.0-36.0) 07/06/17 21:20 RDW 15.2 % (11.5-20.0) 07/06/17 21:20 Plt Count 331 Th/cmm (150-400) D 07/06/17 21:20 MPV 8.5 fl 07/06/17 21:20 Neutrophils % 67.8 % (40.0-80.0) 07/06/17 21:20 Lymphocytes % 18.6 % (20.0-50.0) L 07/06/17 21:20 Monocytes % 7.7 % (2.0-10.0) 07/06/17 21:20 Eosinophils % 4.7 % (0.0-5.0) 07/06/17 21:20 Basophils % 1.2 % (0.0-2.0) 07/06/17 21:20 ESR 99 mm/hr (0-20) H 07/08/17 04:32 PT 10.5 SECONDS (9.5-11.5) 07/06/17 21:20 INR 1.01 (0.5-1.4) 07/06/17 21:20 PTT (Actin FS) 25.4 SECONDS (26.0-38.0) L 07/06/17 21:20 Sodium 138 mEq/L (136-145) 07/08/17 04:32 Potassium 3.5 mEq/L (3.5-5.1) 07/08/17 04:32 Chloride 104 mEq/L (98-107) 07/08/17 04:32 Carbon Dioxide 27.4 mEq/L (21.0-31.0) 07/08/17 04:32 Anion Gap 10.1 (7.0-16.0) 07/08/17 04:32 BUN 23 mg/dL (7-25) 07/08/17 04:32 Creatinine 0.7 mg/dL (0.7-1.3) 07/08/17 04:32 Est GFR ( Amer) TNP 07/08/17 04:32 Est GFR (Non-Af Amer) TNP 07/08/17 04:32 BUN/Creatinine Ratio 32.9 07/08/17 04:32 Glucose 172 mg/dL (70-105) H 07/08/17 04:32 POC Glucose 183 MG/DL (70 - 105) H 07/08/17 16:01 Hemoglobin A1c % 8.8 % (4.0-6.0) H 07/06/17 21:20 Whole Bld Lactic Acid 1.91 mmol/L (0.60-1.99) 07/06/17 21:20 Calcium 8.9 mg/dL (8.6-10.3) 07/08/17 04:32 Total Bilirubin 0.5 mg/dL (0.3-1.0) 07/06/17 21:20 AST 61 U/L (13-39) H 07/06/17 21:20 ALT 19 U/L (7-52) 07/06/17 21:20 Alkaline Phosphatase 92 U/L (34-104) 07/06/17 21:20 Creatine Kinase 96 U/L (30-223) 07/06/17 21:20 Troponin I 0.02 ng/mL (0.01-0.05) 07/06/17 21:20 C-Reactive Protein 7.2 mg/dL (0.0-0.9) H 07/08/17 04:32 B-Natriuretic Peptide 225.0 pg/mL (5.0-100.0) H 07/08/17 04:32 Total Protein 8.3 gm/dL (6.0-8.3) 07/06/17 21:20 Albumin 3.6 gm/dL (4.2-5.5) L 07/06/17 21:20 Globulin 4.7 gm/dL 07/06/17 21:20 Albumin/Globulin Ratio 0.8 (1.0-1.8) L 07/06/17 21:20 Triglycerides 225 mg/dL (<150) H 07/06/17 21:20 Cholesterol 183 mg/dL (<200) 07/06/17 21:20 LDL Cholesterol Direct 102 mg/dL (75-193) 07/06/17 21:20 HDL Cholesterol 34 mg/dL (23-92) 07/06/17 21:20 Urine Source CATH 07/08/17 17:50 Urine Color YELLOW 07/08/17 17:50 Urine Clarity CLEAR (CLEAR) 07/08/17 17:50 Urine pH 6.5 (4.6 - 8.0) 07/08/17 17:50 Ur Specific [employer] 1.015 (1.005-1.030) 07/08/17 17:50 Urine Protein NEGATIVE mg/dL (NEGATIVE) 07/08/17 17:50 Urine Glucose (UA) NEGATIVE mg/dL (NEGATIVE) 07/08/17 17:50 Urine Ketones NEGATIVE mg/dL (NEGATIVE) 07/08/17 17:50 Urine Blood NEGATIVE (NEGATIVE) 07/08/17 17:50 Urine Nitrate NEGATIVE (NEGATIVE) 07/08/17 17:50 Urine Bilirubin NEGATIVE (NEGATIVE) 07/08/17 17:50 Urine Urobilinogen 0.2 E.U./dL (0.2 - 1.0) 07/08/17 17:50 Ur Leukocyte Esterase NEGATIVE (NEGATIVE) 07/08/17 17:50 Urine RBC NONE SEEN /hpf (0-5) 07/08/17 17:50 Urine WBC NONE SEEN /hpf (0-5) 07/08/17 17:50 Ur Epithelial Cells NONE SEEN /lpf (FEW) 07/08/17 17:50 Urine Bacteria NONE SEEN /hpf (NONE SEEN) 07/08/17 17:50 - Physical Exam Vitals and I&O: Vital Signs Temp 97.6 F 07/08/17 17:00 Pulse 115 07/08/17 18:35 Resp 20 07/08/17 18:35 BP 95/56 07/08/17 17:00 Pulse Ox 95 07/08/17 18:35 Intake & Output 07/08/17 07/08/17 07/09/17 06:59 18:59 06:59 Intake Total 750 500 Balance 750 500 Weight (lbs) 129 lb 11.2 oz 129 lb Intake: Intake, IV Amount 100 50 Piperacillin Sodium/ 100 50 Tazobact 4.5 gm In Sodium Chloride 0.9% 50 ml @ 50 mls/hr IV Q8HR [facility] Rx#: [id number] Tube Feeding 650 450 Other: # Voids 2 2 # Bowel Movements 1 Stool Characteristics Soft Soft Brown Brown Active Medications: Current Medications Acetaminophen (Tylenol) 650 mg PO Q6HR PRN PRN Reason: Pain (Mild) Stop: 09/05/17 07:33 Albuterol/Ipratropium (Duoneb Neb) 3 ml HHN Q4HRT [facility] Stop: 09/05/17 10:59 Last Admin: 07/08/17 18:34 Dose: 3 ml Ascorbic Acid (Vitamin C) 500 mg PO DAILY [facility] Stop: 09/06/17 08:59 Last Admin: 07/08/17 09:42 Dose: 500 mg Docusate Sodium (Colace) 100 mg PO DAILY [facility] Stop: 09/06/17 08:59 Last Admin: 07/08/17 09:42 Dose: 100 mg Furosemide (Lasix) 40 mg IVP DAILY [facility] Stop: 09/05/17 08:59 Last Admin: 07/08/17 09:42 Dose: 40 mg Glipizide (Glucotrol) 10 mg GT DAILY [facility] Stop: 09/05/17 08:59 Last Admin: 07/08/17 09:41 Dose: 10 mg Hydrocortisone (Hydrocortisone 2.5%) 1 appl TP BID PRN PRN Reason: Itching Stop: 09/05/17 07:33 Last Admin: 07/08/17 09:47 Dose: 1 appl Piperacillin Sod/Tazobactam (Sod 4.5 gm/ Sodium Chloride) 50 mls @ 50 mls/hr IV Q8HR [facility] Stop: 09/05/17 13:59 Last Infusion: 07/08/17 18:16 Dose: Infused Sodium Chloride (Nacl 0.9%) 1,000 mls @ 30 mls/hr IV .Q24H [facility] Stop: 09/06/17 20:29 Insulin Aspart (Novolog Insulin Sliding Scale) 0 units SUBQ ACHS RAYMUNDO PRN Reason: Protocol Stop: 09/05/17 11:29 Last Admin: 07/08/17 16:48 Dose: 2 units Insulin Detemir (Levemir Insulin) 10 units SUBQ HS [facility] PRN Reason: Protocol Stop: 09/05/17 20:59 Last Admin: 07/07/17 22:20 Dose: 10 units Lactobacillus Rhamnosus (Culturelle) 1 each GT DAILY [facility] Stop: 09/05/17 08:59 Last Admin: 07/08/17 09:41 Dose: 1 each Metformin HCl (Glucophage) 500 mg GT BID [facility] Stop: 09/05/17 08:59 Last Admin: 07/08/17 16:48 Dose: 500 mg Metoprolol Tartrate (Lopressor) 25 mg GT Q8HR [facility] Stop: 09/05/17 12:59 Last Admin: 07/08/17 13:03 Dose: Not Given Morphine Sulfate (Morphine) 1 mg IVP Q4HR PRN PRN Reason: MODERATE PAIN Stop: 09/05/17 15:39 Last Admin: 07/07/17 22:17 Dose: 1 mg Morphine Sulfate (Morphine) 2 mg IVP Q4HR PRN PRN Reason: Severe Pain Stop: 09/05/17 15:40 Last Admin: 07/08/17 03:51 Dose: 2 mg Potassium Chloride (Potassium Chloride Elixir) 20 meq GT DAILY [facility] Stop: 09/05/17 08:59 Last Admin: 07/08/17 09:42 Dose: 20 meq Simvastatin (Zocor) 25 mg GT HS [facility] PRN Reason: Protocol Stop: 09/05/17 20:59 Last Admin: 07/07/17 21:34 Dose: 25 mg Warfarin Sodium (Coumadin) 6 mg PO 1300 [facility] Stop: 09/05/17 12:59 Last Admin: 07/08/17 13:03 Dose: Not Given Zinc Sulfate (Zinc Sulfate) 220 mg PO DAILY [facility] Stop: 09/06/17 08:59 Last Admin: 07/08/17 09:41 Dose: 220 mg Nutritional Asmnt/Malnutr-PDOC - Dietary Evaluation Malnutrition Findings (Please click <Entered> for more info): Nutritional Asmnt/Malnutrition Start: 07/07/17 14: 45 Text: Status: Complete Freq: Document 07/07/17 14:45 MPENAFUERT (Rec: 07/07/17 14:55 MPENAFUERT ANJALI -[id number]) Nutritional Asmnt/Malnutrition Patient General Information Nutritional Screening Consult Diagnosis Pneumonia/hyponatremia/CHF/ pneumonia/sepsis Pertinent Medical Hx/Surgical Hx HTN, DM, CAD, CVA, TIA, dyslipidemia per MD notes Subjective Information RD received Nutrition Consult for pt on GTF, blood sugar 194 upon admit and unstageable pressure ulcer L heel. Pt seen resting in bed w/ TF infusing as per MD orders w/ daughter providing hygiene care at time of RD visit. Per RN, pt has been tolerating TF well so far. RN also reported BM x1 (soft stool). Current TF regimen does not meet optimal nutritional needs . Currently, pt is receiving 1800 kcal/daym 90 gm protein/ day, and 1227 ml free water/ day. This meets 86% of lower end of estimated caloric and protein needs. Pt is not appropriate for nutrition education. Current Diet Order/ Nutrition Support Diabetisource AC at 75 cc/hr x20 hours Patient / S.O Can't verbalize diet edu Pertinent Medications lasix, glipizide, culturelle, glucophage Pertinent Labs 07/06/17: Na 132 L, BG 118 H, CRE 0.6 L, HgA1c 8.8 H, ALB 3. 6 L, AST 61 H, TG 225 H Nutritional Hx/Data Height 5 ft 6 in Height (Calculated Centimeters) 167.6 Current Weight (lbs) 153 lb Weight (Calculated Kilograms) 69.4 Weight (Calculated Grams) 89475.6 [place] Body Weight 142 lb, 65 kg % [place] Body Weight 108 Recent Weight Change No Weight Status Approriate GI Symptoms GI Symptoms None Food Allergies No Skin Integrity/Comment: Darrel scale: 12; per RN report, pt has a L foot wound Estimated Nutritional Goals BEE in Kcals: Using Current wt Calories/Kcals/Kg 30-35 kcal/kg CBW for sepsis, wound healing Kcals Calculated 2511-8436 kcal/day Protein: Using Current wt Protein g/k.5-2 gm/kg CBW for sepsis, wound healing Protein Calculated 105-140 gm/day Fluid: ml Per MD (CHF) Nutritional Problem 1. Problem Problem Increased nutritional needs Etiology related to metabolic demands Signs/Symptoms: as evidenced by estimated nutritional requirements for sepsis and wound healing. Malnutrition Alert Is there a minimum of two criteria No selected? Query Text:Check all the applicable criteria. A minimum of two criteria are recommended for diagnosis of either severe or non-severe malnutrition. Malnutrition Related to Morbid Obesity Malnutrition related to morbid obesity No Intervention/Recommendation Recommendations by RD Increase Calorie Intake Protein supplementation Comments * Recommend Diabetisource AC at 75 ml/hr x24 hours via GT Provides: 2160 kcal/day, 108 gm protein/day, and 1472 ml free water/day Meets: 103% of lower end of estimated caloric and protein needs Expected Outcomes/Goals Expected Outcomes/Goals - Monitor tolerance to EN support w/ goal of pt meeting at least 100% of estimated nutritional needs, labs trending WNL, normal GI function, and skin integrity/ wt maintenance within 2-3 days
[2017-07-08] MEDS: Insulin Detemir 100 units/mL 10mL Vial SUBQ SCH (21:41)
--- NOTE | 2017-07-08 21:55 | History & Physical ---
ADMIT DATE: 07/08/[address] Mcgowan. CHIEF COMPLAINT: Fever. HISTORY OF PRESENT ILLNESS: This is a 76-year-old male who has a 1-week history of productive cough associated with fever and congestion. The patient denies any chills. PAST MEDICAL HISTORY: Hypertension, diabetes, CVA, TIA, and dyslipidemia. SOCIAL HISTORY: The patient is a senior living resident. REVIEW OF SYSTEMS: Unable to obtain due to the patient's mental status. PHYSICAL EXAMINATION: GENERAL: The patient is well developed, well nourished, in no acute distress. VITAL SIGNS: Temperature 97.6, heart rate 117, blood pressure 95/66, respirations 20, and O2 of 95%. HEENT: Head is normocephalic and atraumatic. NECK: Supple. No mass. LUNGS: Clear bilaterally. HEART: Regular rate and rhythm. ABDOMEN: Soft and nontender. LABORATORY DATA: WBC 9.9, H and H of 13.2 and 39.3, and platelets of 331,000. Sodium 138, potassium , chloride 104, BUN 23, and creatinine 0.7. ASSESSMENT: Pneumonia, hypertension, diabetes mellitus, cerebrovascular accident, transient ischemic attack, and dyslipidemia. PLAN: The patient will be admitted to the telemetry unit. We will get Infectious Disease on the case. We will give the patient empiric IV antibiotics, inhalation treatments, and supplemental oxygen. We will continue to follow this patient. [facility]# [id number]
--- NOTE | 2017-07-09 01:58 | Consultation ---
DATE OF CONSULTATION: 07/08/2017 REFERRING PHYSICIAN: Dr. Mcgowan. Thank you very much Dr. Mcgowan for this consultation. This is a 76-year-old male. He was admitted with the cough and congestion. PAST MEDICAL HISTORY: The patient has history of diabetes mellitus, hypertension, CVA, dysphagia, and dyslipidemia. SOCIAL HISTORY: No history of smoking or drinking. He is a [facility] resident. REVIEW OF SYSTEMS: Unable to obtain because of the patient's condition. PHYSICAL EXAMINATION: GENERAL: The patient just got of surgery for debridement of the left foot, sleepy. VITAL SIGNS: Temperature 98.5, pulse 87, respiration is 18, blood pressure 120/71, and saturation 97% on 2 liters nasal cannula. HEENT: Atraumatic and normocephalic. Pupils react to light and accommodation. Ears, nose, and throat normal. NECK: Supple. No JVD. CHEST: There are a few rhonchi bilaterally, more on the right than left. HEART: Regular rate and rhythm. ABDOMEN: Soft. EXTREMITIES: No edema. Chest x-ray shows bibasilar atelectasis, no obvious infiltrate. LABORATORY DATA: WBC is 9.9, hemoglobin 13.2, hematocrit 39.3, and platelets is 331,000. Sodium is 130, potassium 3.5, BUN 23, and creatinine 0.7. IMPRESSION: 1. Bronchitis. 2. Infected decubitus ulcers. 3. Dysphagia. 4. Weakness. 5. Pulmonary congestion. PLAN: 1. Continue IV antibiotics. 2. Nebulizer treatment. 3. Follow up chest x-ray. 4. Pulmonary toilet and supportive care. I will follow the patient with you. Thank you very much for this consultation. JOB# [id number] MTDD
[2017-07-09] MEDS: Albuterol/Ipratropium Neb 3 ML AERS HHN SCH ×6 (02:52→22:54)
[2017-07-09 05:23] LABS: % BASOPHILS 0.7 % (0.0-2.0); % EOSINOPHILS 6.5 % (0.0-5.0); % MONOCYTES 8.5 % (2.0-10.0); % NEUTROPHILS 63.3 % (40.0-80.0); MEAN CELL VOLUME 87.8 fl (80-99); MEAN CORPUSCULAR HEMOGLOBIN 30.3 pg (27.0-31.0); MEAN CORPUSCULAR HGB CONC 34.5 pg (28.0-36.0); MEAN PLATELET VOLUME 8.2 fl; NEUTROPHILE ABSOLUTE 5.6 Th/cmm (1.8-8.0); PLATELET COUNT 372 Th/cmm (150-400); RED CELL DISTRIBUTION WIDTH 15.2 % (11.5-20.0)
[2017-07-09 05:39] LABS: HEMOGLOBIN 11.2 gm/dL (12-16)
[2017-07-09 05:40] LABS: HEMATOCRIT 32.5 % (41.0-60)
[2017-07-09 05:43] LABS: INR 1.04 (0.5-1.4); PROTHROMBIN TIME (TEST) 10.8 SECONDS (9.5-11.5)
[2017-07-09 05:45] LABS: BUN - UREA NITROGEN 20 mg/dL (7-25); BUN/CREATININE RATIO 33.3; CARBON DIOXIDE 26.9 mEq/L (21.0-31.0); CHLORIDE 104 mEq/L (98-107); CREATININE - SERUM 0.6 mg/dL (0.7-1.3); GLUCOSE 170 mg/dL (70-105); POTASSIUM SERUM 3.9 mEq/L (3.5-5.1); SODIUM SERUM 138 mEq/L (136-145)
[2017-07-09] MEDS: INSULIN ASPART SLIDING SCALE 100 UNITS/ML UNIT SUBQ SCH ×4 (06:43→20:40)
--- NOTE | 2017-07-09 08:50 | Progress Notes ---
DATE: SUBJECTIVE: The patient was seen in his room, lying on the bed. The patient denies any pain or discomfort at this time, appears to be comfortable in no acute distress. OBJECTIVE: GENERAL: The patient is awake, alert and oriented x 2-3 with episodes of confusion. VITAL SIGNS: Temperature 98.8, heart rate 83, blood pressure 119/77, respirations of 19, 97% on room air. HEAD: Atraumatic and normocephalic. EYES: Bilateral conjunctivae are clear. Bilateral pupils are equally round and reactive. NECK: Supple. No JVD. CARDIOVASCULAR: S1 and S2, without murmur. PULMONARY: Mild inspiratory wheezing noted. MUSCULOSKELETAL: No clubbing, no cyanosis noted. ASSESSMENT: 1. Diabetes mellitus. 2. Dementia 3. Hypertension. 4. Coronary artery disease. 5. Left heel decubitus ulcer. 6. History of cerebrovascular accident. 7. Hyperlipidemia. 8. Dysphagia. PLAN: We will continue IV antibiotics per ID doctor. We will follow up and monitor the patient's condition and behavior. Treatment plans were discussed with the patient's nurse. Treatment plans were discussed with Dr. Mcgowan. JOB# [id number]
[2017-07-09] MEDS: Potassium Chloride Elixir 20 mEq /15 mL UDC GT SCH (09:50)
[2017-07-09] MEDS: Multivitamin w/ Minerals Tab GT SCH (09:50)
--- NOTE | 2017-07-09 09:50 | Diagnostic Imaging Report ---
CHEST X-RAY: AP view INDICATION: Shortness of breath COMPARISON: 07/06/2017 Findings: No focal consolidation or effusions. Suboptimal lung volumes are noted. Heart size is normal. Atherosclerosis noted. IMPRESSION: Suboptimal lung volumes with no focal consolidation or evidence of CHF.
--- NOTE | 2017-07-09 10:07 | Diagnostic Imaging Report ---
Nuclear medicine triple phase bone scan History: Osteomyelitis of the left heel Comparison: None Technique/procedure: 25.6 mCi of technetium labeled MDP was administered intravenously and flow, and blood flow images of bilateral lower extremities were obtained. Note that delayed images were not able to be obtained as patient had to be taken for surgery. Findings: Flow images demonstrate mild increased uptake along the left heel region. Blood flow images also demonstrate slight increased uptake of the left heel. IMPRESSION: Incomplete examination as delayed images were not performed. There is mild increased uptake seen within the left on flow and blood pool images. As such, osteomyelitis of the left heel cannot be excluded. Please correlate with clinical findings.
[2017-07-09] MEDS: Venelex 60gm Tube TP SCH ×3 (10:16→21:08)
[2017-07-09] MEDS: Lactobacillus Rhamnosus 10 Billion CFU Capsule GT SCH (12:58)
--- NOTE | 2017-07-09 13:21 | General Progress Note ---
Subjective - Review of Systems Service Date: 07/09/17 Events since last encounter: local wound care ordered Objective - Results Result Diagrams: 07/09/17 05:06 07/09/17 05:06 Recent Labs: Laboratory Last Values WBC 9.0 Th/cmm (4.8-10.8) 07/09/17 05:06 RBC 3.70 Mil/cmm (3.80-5.80) L 07/09/17 05:06 Hgb 11.2 gm/dL (12-16) L D 07/09/17 05:06 Hct 32.5 % (41.0-60) L D 07/09/17 05:06 MCV 87.8 fl (80-99) 07/09/17 05:06 MCH 30.3 pg (27.0-31.0) 07/09/17 05:06 MCHC Differential 34.5 pg (28.0-36.0) 07/09/17 05:06 RDW 15.2 % (11.5-20.0) 07/09/17 05:06 Plt Count 372 Th/cmm (150-400) 07/09/17 05:06 MPV 8.2 fl 07/09/17 05:06 Neutrophils % 63.3 % (40.0-80.0) 07/09/17 05:06 Lymphocytes % 21.0 % (20.0-50.0) 07/09/17 05:06 Monocytes % 8.5 % (2.0-10.0) 07/09/17 05:06 Eosinophils % 6.5 % (0.0-5.0) H 07/09/17 05:06 Basophils % 0.7 % (0.0-2.0) 07/09/17 05:06 ESR 99 mm/hr (0-20) H 07/08/17 04:32 PT 10.8 SECONDS (9.5-11.5) 07/09/17 05:06 INR 1.04 (0.5-1.4) 07/09/17 05:06 PTT (Actin FS) 25.4 SECONDS (26.0-38.0) L 07/06/17 21:20 Sodium 138 mEq/L (136-145) 07/09/17 05:06 Potassium 3.9 mEq/L (3.5-5.1) 07/09/17 05:06 Chloride 104 mEq/L (98-107) 07/09/17 05:06 Carbon Dioxide 26.9 mEq/L (21.0-31.0) 07/09/17 05:06 Anion Gap 11.0 (7.0-16.0) 07/09/17 05:06 BUN 20 mg/dL (7-25) 07/09/17 05:06 Creatinine 0.6 mg/dL (0.7-1.3) L 07/09/17 05:06 Est GFR ( Amer) TNP 07/09/17 05:06 Est GFR (Non-Af Amer) TNP 07/09/17 05:06 BUN/Creatinine Ratio 33.3 07/09/17 05:06 Glucose 170 mg/dL (70-105) H 07/09/17 05:06 POC Glucose 155 MG/DL (70 - 105) H 07/09/17 12:16 Hemoglobin A1c % 8.8 % (4.0-6.0) H 07/06/17 21:20 Whole Bld Lactic Acid 1.91 mmol/L (0.60-1.99) 07/06/17 21:20 Calcium 9.0 mg/dL (8.6-10.3) 07/09/17 05:06 Total Bilirubin 0.5 mg/dL (0.3-1.0) 07/06/17 21:20 AST 61 U/L (13-39) H 07/06/17 21:20 ALT 19 U/L (7-52) 07/06/17 21:20 Alkaline Phosphatase 92 U/L (34-104) 07/06/17 21:20 Creatine Kinase 96 U/L (30-223) 07/06/17 21:20 Troponin I 0.02 ng/mL (0.01-0.05) 07/06/17 21:20 C-Reactive Protein 7.2 mg/dL (0.0-0.9) H 07/08/17 04:32 B-Natriuretic Peptide 225.0 pg/mL (5.0-100.0) H 07/08/17 04:32 Total Protein 8.3 gm/dL (6.0-8.3) 07/06/17 21:20 Albumin 3.6 gm/dL (4.2-5.5) L 07/06/17 21:20 Globulin 4.7 gm/dL 07/06/17 21:20 Albumin/Globulin Ratio 0.8 (1.0-1.8) L 07/06/17 21:20 Triglycerides 225 mg/dL (<150) H 07/06/17 21:20 Cholesterol 183 mg/dL (<200) 07/06/17 21:20 LDL Cholesterol Direct 102 mg/dL (75-193) 07/06/17 21:20 HDL Cholesterol 34 mg/dL (23-92) 07/06/17 21:20 Urine Source CATH 07/08/17 17:50 Urine Color YELLOW 07/08/17 17:50 Urine Clarity CLEAR (CLEAR) 07/08/17 17:50 Urine pH 6.5 (4.6 - 8.0) 07/08/17 17:50 Ur Specific [place] 1.015 (1.005-1.030) 07/08/17 17:50 Urine Protein NEGATIVE mg/dL (NEGATIVE) 07/08/17 17:50 Urine Glucose (UA) NEGATIVE mg/dL (NEGATIVE) 07/08/17 17:50 Urine Ketones NEGATIVE mg/dL (NEGATIVE) 07/08/17 17:50 Urine Blood NEGATIVE (NEGATIVE) 07/08/17 17:50 Urine Nitrate NEGATIVE (NEGATIVE) 07/08/17 17:50 Urine Bilirubin NEGATIVE (NEGATIVE) 07/08/17 17:50 Urine Urobilinogen 0.2 E.U./dL (0.2 - 1.0) 07/08/17 17:50 Ur Leukocyte Esterase NEGATIVE (NEGATIVE) 07/08/17 17:50 Urine RBC NONE SEEN /hpf (0-5) 07/08/17 17:50 Urine WBC NONE SEEN /hpf (0-5) 07/08/17 17:50 Ur Epithelial Cells NONE SEEN /lpf (FEW) 07/08/17 17:50 Urine Bacteria NONE SEEN /hpf (NONE SEEN) 07/08/17 17:50 - Physical Exam Vitals and I&O: Vital Signs Temp 98.8 F 07/09/17 04:52 Pulse 116 07/09/17 12:58 Resp 16 07/09/17 10:41 BP 105/62 07/09/17 12:58 Pulse Ox 96 07/09/17 10:41 Intake & Output 07/08/17 07/09/17 07/09/17 18:59 06:59 18:59 Intake Total 500 720 Balance 500 720 Weight (lbs) 58.513 kg 69.541 kg Intake: Intake, IV Amount 50 100 Piperacillin Sodium/ 50 100 Tazobact 4.5 gm In Sodium Chloride 0.9% 50 ml @ 50 mls/hr IV Q8HR [facility] Rx#: [id number] Tube Feeding 450 500 Other 120 Other: # Voids 2 3 Stool Characteristics Soft Brown Active Medications: Current Medications Acetaminophen (Tylenol) 650 mg PO Q6HR PRN PRN Reason: Pain (Mild) Stop: 09/05/17 07:33 Albuterol/Ipratropium (Duoneb Neb) 3 ml HHN Q4HRT [facility] Stop: 09/05/17 10:59 Last Admin: 07/09/17 10:39 Dose: 3 ml Ascorbic Acid (Vitamin C) 500 mg PO DAILY [facility] Stop: 09/06/17 08:59 Last Admin: 07/09/17 09:51 Dose: 500 mg Docusate Sodium (Colace) 100 mg PO DAILY [facility] Stop: 09/06/17 08:59 Last Admin: 07/09/17 09:51 Dose: 100 mg Furosemide (Lasix) 40 mg IVP DAILY [facility] Stop: 09/05/17 08:59 Last Admin: 07/09/17 09:51 Dose: 40 mg Glipizide (Glucotrol) 10 mg GT DAILY [facility] Stop: 09/05/17 08:59 Last Admin: 07/09/17 09:51 Dose: 10 mg Hydrocortisone (Hydrocortisone 2.5%) 1 appl TP BID PRN PRN Reason: Itching Stop: 09/05/17 07:33 Last Admin: 07/09/17 10:16 Dose: 1 appl Piperacillin Sod/Tazobactam (Sod 4.5 gm/ Sodium Chloride) 50 mls @ 50 mls/hr IV Q8HR [facility] Stop: 09/05/17 13:59 Last Admin: 07/09/17 12:24 Dose: 50 mls/hr Sodium Chloride (Nacl 0.9%) 1,000 mls @ 30 mls/hr IV .Q24H [facility] Stop: 09/06/17 20:29 Last Admin: 07/08/17 21:41 Dose: 30 mls/hr Insulin Aspart (Novolog Insulin Sliding Scale) 0 units SUBQ ACHS RAYMUNDO PRN Reason: Protocol Stop: 09/05/17 11:29 Last Admin: 07/09/17 12:18 Dose: 2 units Insulin Detemir (Levemir Insulin) 10 units SUBQ HS RAYMUNDO PRN Reason: Protocol Stop: 09/05/17 20:59 Last Admin: 07/08/17 21:41 Dose: 10 units Lactobacillus Rhamnosus (Culturelle) 1 each GT DAILY RAYMUNDO Stop: 09/05/17 08:59 Last Admin: 07/09/17 12:58 Dose: 1 each Metformin HCl (Glucophage) 500 mg GT BID [facility] Stop: 09/05/17 08:59 Last Admin: 07/09/17 09:50 Dose: 500 mg Metoprolol Tartrate (Lopressor) 25 mg GT Q8HR [facility] Stop: 09/05/17 12:59 Last Admin: 07/09/17 12:58 Dose: 25 mg Morphine Sulfate (Morphine) 1 mg IVP Q4HR PRN PRN Reason: MODERATE PAIN Stop: 09/05/17 15:39 Last Admin: 07/07/17 22:17 Dose: 1 mg Morphine Sulfate (Morphine) 2 mg IVP Q4HR PRN PRN Reason: Severe Pain Stop: 09/05/17 15:40 Last Admin: 07/08/17 03:51 Dose: 2 mg Potassium Chloride (Potassium Chloride Elixir) 20 meq GT DAILY [facility] Stop: 09/05/17 08:59 Last Admin: 07/09/17 09:50 Dose: 20 meq Simvastatin (Zocor) 25 mg GT HS [facility] PRN Reason: Protocol Stop: 09/05/17 20:59 Last Admin: 07/08/17 21:42 Dose: 25 mg Warfarin Sodium (Coumadin) 6 mg PO 1300 [facility] Stop: 09/05/17 12:59 Last Admin: 07/09/17 12:59 Dose: 6 mg Zinc Sulfate (Zinc Sulfate) 220 mg PO DAILY [facility] Stop: 09/06/17 08:59 Last Admin: 07/09/17 09:50 Dose: 220 mg - Procedures Procedures: Procedures Procedure Code Date DEBORA SUBQ TISSUE 20 SQ CM/< 31563 07/06/17 EXCISION OF L FOOT SUBCU/FASCIA, OPEN APPROACH [id number] 07/06/17 Assessment/Plan - Problem List Patient Problems: All Active Problems Chest congestion (Acute) R09.89 Rash (Acute) R21 Nutritional Asmnt/Malnutr-PDOC - Dietary Evaluation Malnutrition Findings (Please click <Entered> for more info): Nutritional Asmnt/Malnutrition Start: 07/07/17 14: 45 Text: Status: Complete Freq: Document 07/07/17 14:45 WENDI (Rec: 07/07/17 14:55 MPBRADLY [email or web address] -[email or web address]) Nutritional Asmnt/Malnutrition Patient General Information Nutritional Screening Consult Diagnosis Pneumonia/hyponatremia/CHF/ pneumonia/sepsis Pertinent Medical Hx/Surgical Hx HTN, DM, CAD, CVA, TIA, dyslipidemia per MD notes Subjective Information RD received Nutrition Consult for pt on GTF, blood sugar 194 upon admit and unstageable pressure ulcer L heel. Pt seen resting in bed w/ TF infusing as per MD orders w/ daughter providing hygiene care at time of RD visit. Per RN, pt has been tolerating TF well so far. RN also reported BM x1 (soft stool). Current TF regimen does not meet optimal nutritional needs . Currently, pt is receiving 1800 kcal/daym 90 gm protein/ day, and 1227 ml free water/ day. This meets 86% of lower end of estimated caloric and protein needs. Pt is not appropriate for nutrition education. Current Diet Order/ Nutrition Support Diabetisource AC at 75 cc/hr x20 hours Patient / S.O Can't verbalize diet edu Pertinent Medications lasix, glipizide, culturelle, glucophage Pertinent Labs 07/06/17: Na 132 L, BG 118 H, CRE 0.6 L, HgA1c 8.8 H, ALB 3. 6 L, AST 61 H, TG 225 H Nutritional Hx/Data Height 1.68 m Height (Calculated Centimeters) 167.6 Current Weight (lbs) 69.4 kg Weight (Calculated Kilograms) 69.4 Weight (Calculated Grams) 39238.6 [place] Body Weight 142 lb, 65 kg % [place] Body Weight 108 Recent Weight Change No Weight Status Approriate GI Symptoms GI Symptoms None Food Allergies No Skin Integrity/Comment: Darrel scale: 12; per RN report, pt has a L foot wound Estimated Nutritional Goals BEE in Kcals: Using Current wt Calories/Kcals/Kg 30-35 kcal/kg CBW for sepsis, wound healing Kcals Calculated 2863-2435 kcal/day Protein: Using Current wt Protein g/k.5-2 gm/kg CBW for sepsis, wound healing Protein Calculated 105-140 gm/day Fluid: ml Per MD (CHF) Nutritional Problem 1. Problem Problem Increased nutritional needs Etiology related to metabolic demands Signs/Symptoms: as evidenced by estimated nutritional requirements for sepsis and wound healing. Malnutrition Alert Is there a minimum of two criteria No selected? Query Text:Check all the applicable criteria. A minimum of two criteria are recommended for diagnosis of either severe or non-severe malnutrition. Malnutrition Related to Morbid Obesity Malnutrition related to morbid obesity No Intervention/Recommendation Recommendations by RD Increase Calorie Intake Protein supplementation Comments * Recommend Diabetisource AC at 75 ml/hr x24 hours via GT Provides: 2160 kcal/day, 108 gm protein/day, and 1472 ml free water/day Meets: 103% of lower end of estimated caloric and protein needs Expected Outcomes/Goals Expected Outcomes/Goals - Monitor tolerance to EN support w/ goal of pt meeting at least 100% of estimated nutritional needs, labs trending WNL, normal GI function, and skin integrity/ wt maintenance within 2-3 days
--- NOTE | 2017-07-09 16:36 | Infectious Disease Prog Note ---
Infectious Disease Subjective - Review of Systems Service Date: 07/09/17 Subjective: There is no new change, there is no fever. Infectious Disease Objective - Results Result Diagrams: 07/09/17 05:06 07/09/17 05:06 Recent Labs: Laboratory Last Values WBC 9.0 Th/cmm (4.8-10.8) 07/09/17 05:06 RBC 3.70 Mil/cmm (3.80-5.80) L 07/09/17 05:06 Hgb 11.2 gm/dL (12-16) L D 07/09/17 05:06 Hct 32.5 % (41.0-60) L D 07/09/17 05:06 MCV 87.8 fl (80-99) 07/09/17 05:06 MCH 30.3 pg (27.0-31.0) 07/09/17 05:06 MCHC Differential 34.5 pg (28.0-36.0) 07/09/17 05:06 RDW 15.2 % (11.5-20.0) 07/09/17 05:06 Plt Count 372 Th/cmm (150-400) 07/09/17 05:06 MPV 8.2 fl 07/09/17 05:06 Neutrophils % 63.3 % (40.0-80.0) 07/09/17 05:06 Lymphocytes % 21.0 % (20.0-50.0) 07/09/17 05:06 Monocytes % 8.5 % (2.0-10.0) 07/09/17 05:06 Eosinophils % 6.5 % (0.0-5.0) H 07/09/17 05:06 Basophils % 0.7 % (0.0-2.0) 07/09/17 05:06 ESR 99 mm/hr (0-20) H 07/08/17 04:32 PT 10.8 SECONDS (9.5-11.5) 07/09/17 05:06 INR 1.04 (0.5-1.4) 07/09/17 05:06 PTT (Actin FS) 25.4 SECONDS (26.0-38.0) L 07/06/17 21:20 Sodium 138 mEq/L (136-145) 07/09/17 05:06 Potassium 3.9 mEq/L (3.5-5.1) 07/09/17 05:06 Chloride 104 mEq/L (98-107) 07/09/17 05:06 Carbon Dioxide 26.9 mEq/L (21.0-31.0) 07/09/17 05:06 Anion Gap 11.0 (7.0-16.0) 07/09/17 05:06 BUN 20 mg/dL (7-25) 07/09/17 05:06 Creatinine 0.6 mg/dL (0.7-1.3) L 07/09/17 05:06 Est GFR ( Amer) TNP 07/09/17 05:06 Est GFR (Non-Af Amer) TNP 07/09/17 05:06 BUN/Creatinine Ratio 33.3 07/09/17 05:06 Glucose 170 mg/dL (70-105) H 07/09/17 05:06 POC Glucose 155 MG/DL (70 - 105) H 07/09/17 12:16 Hemoglobin A1c % 8.8 % (4.0-6.0) H 07/06/17 21:20 Whole Bld Lactic Acid 1.91 mmol/L (0.60-1.99) 07/06/17 21:20 Calcium 9.0 mg/dL (8.6-10.3) 07/09/17 05:06 Total Bilirubin 0.5 mg/dL (0.3-1.0) 07/06/17 21:20 AST 61 U/L (13-39) H 07/06/17 21:20 ALT 19 U/L (7-52) 07/06/17 21:20 Alkaline Phosphatase 92 U/L (34-104) 07/06/17 21:20 Creatine Kinase 96 U/L (30-223) 07/06/17 21:20 Troponin I 0.02 ng/mL (0.01-0.05) 07/06/17 21:20 C-Reactive Protein 7.2 mg/dL (0.0-0.9) H 07/08/17 04:32 B-Natriuretic Peptide 225.0 pg/mL (5.0-100.0) H 07/08/17 04:32 Total Protein 8.3 gm/dL (6.0-8.3) 07/06/17 21:20 Albumin 3.6 gm/dL (4.2-5.5) L 07/06/17 21:20 Globulin 4.7 gm/dL 07/06/17 21:20 Albumin/Globulin Ratio 0.8 (1.0-1.8) L 07/06/17 21:20 Triglycerides 225 mg/dL (<150) H 07/06/17 21:20 Cholesterol 183 mg/dL (<200) 07/06/17 21:20 LDL Cholesterol Direct 102 mg/dL (75-193) 07/06/17 21:20 HDL Cholesterol 34 mg/dL (23-92) 07/06/17 21:20 Urine Source CATH 07/08/17 17:50 Urine Color YELLOW 07/08/17 17:50 Urine Clarity CLEAR (CLEAR) 07/08/17 17:50 Urine pH 6.5 (4.6 - 8.0) 07/08/17 17:50 Ur Specific [place] 1.015 (1.005-1.030) 07/08/17 17:50 Urine Protein NEGATIVE mg/dL (NEGATIVE) 07/08/17 17:50 Urine Glucose (UA) NEGATIVE mg/dL (NEGATIVE) 07/08/17 17:50 Urine Ketones NEGATIVE mg/dL (NEGATIVE) 07/08/17 17:50 Urine Blood NEGATIVE (NEGATIVE) 07/08/17 17:50 Urine Nitrate NEGATIVE (NEGATIVE) 07/08/17 17:50 Urine Bilirubin NEGATIVE (NEGATIVE) 07/08/17 17:50 Urine Urobilinogen 0.2 E.U./dL (0.2 - 1.0) 07/08/17 17:50 Ur Leukocyte Esterase NEGATIVE (NEGATIVE) 07/08/17 17:50 Urine RBC NONE SEEN /hpf (0-5) 07/08/17 17:50 Urine WBC NONE SEEN /hpf (0-5) 07/08/17 17:50 Ur Epithelial Cells NONE SEEN /lpf (FEW) 07/08/17 17:50 Urine Bacteria NONE SEEN /hpf (NONE SEEN) 07/08/17 17:50 - Physical Exam Vitals and I&O: Vital Signs Temp 98.8 F 07/09/17 04:52 Pulse 100 07/09/17 14:38 Resp 16 07/09/17 14:38 BP 105/62 07/09/17 12:58 Pulse Ox 96 07/09/17 14:38 Intake & Output 07/08/17 07/09/17 07/09/17 18:59 06:59 18:59 Intake Total 500 720 Balance 500 720 Weight (lbs) 58.513 kg 69.541 kg Intake: Intake, IV Amount 50 100 Piperacillin Sodium/ 50 100 Tazobact 4.5 gm In Sodium Chloride 0.9% 50 ml @ 50 mls/hr IV Q8HR [facility] Rx#: [id number] Tube Feeding 450 500 Other 120 Other: # Voids 2 3 Stool Characteristics Soft Brown Active Medications: Current Medications Acetaminophen (Tylenol) 650 mg PO Q6HR PRN PRN Reason: Pain (Mild) Stop: 09/05/17 07:33 Albuterol/Ipratropium (Duoneb Neb) 3 ml HHN Q4HRT [facility] Stop: 09/05/17 10:59 Last Admin: 07/09/17 14:36 Dose: 3 ml Ascorbic Acid (Vitamin C) 500 mg PO DAILY [facility] Stop: 09/06/17 08:59 Last Admin: 07/09/17 09:51 Dose: 500 mg Docusate Sodium (Colace) 100 mg PO DAILY [facility]UN[facility] Stop: 09/06/17 08:59 Last Admin: 07/09/17 09:51 Dose: 100 mg Furosemide (Lasix) 40 mg IVP DAILY [facility] Stop: 09/05/17 08:59 Last Admin: 07/09/17 09:51 Dose: 40 mg Glipizide (Glucotrol) 10 mg GT DAILY [facility] Stop: 09/05/17 08:59 Last Admin: 07/09/17 09:51 Dose: 10 mg Hydrocortisone (Hydrocortisone 2.5%) 1 appl TP BID PRN PRN Reason: Itching Stop: 09/05/17 07:33 Last Admin: 07/09/17 10:16 Dose: 1 appl Piperacillin Sod/Tazobactam (Sod 4.5 gm/ Sodium Chloride) 50 mls @ 50 mls/hr IV Q8HR [facility] Stop: 09/05/17 13:59 Last Admin: 07/09/17 12:24 Dose: 50 mls/hr Sodium Chloride (Nacl 0.9%) 1,000 mls @ 30 mls/hr IV .Q24H [facility] Stop: 09/06/17 20:29 Last Admin: 07/08/17 21:41 Dose: 30 mls/hr Insulin Aspart (Novolog Insulin Sliding Scale) 0 units SUBQ ACHS RAYMUNDO PRN Reason: Protocol Stop: 09/05/17 11:29 Last Admin: 07/09/17 12:18 Dose: 2 units Insulin Detemir (Levemir Insulin) 10 units SUBQ HS RAYMUNDO PRN Reason: Protocol Stop: 09/05/17 20:59 Last Admin: 07/08/17 21:41 Dose: 10 units Lactobacillus Rhamnosus (Culturelle) 1 each GT DAILY RAYMUNDO Stop: 09/05/17 08:59 Last Admin: 07/09/17 12:58 Dose: 1 each Metformin HCl (Glucophage) 500 mg GT BID RAYMUNDO Stop: 09/05/17 08:59 Last Admin: 07/09/17 09:50 Dose: 500 mg Metoprolol Tartrate (Lopressor) 25 mg GT Q8HR [facility] Stop: 09/05/17 12:59 Last Admin: 07/09/17 12:58 Dose: 25 mg Morphine Sulfate (Morphine) 1 mg IVP Q4HR PRN PRN Reason: MODERATE PAIN Stop: 09/05/17 15:39 Last Admin: 07/07/17 22:17 Dose: 1 mg Morphine Sulfate (Morphine) 2 mg IVP Q4HR PRN PRN Reason: Severe Pain Stop: 09/05/17 15:40 Last Admin: 07/08/17 03:51 Dose: 2 mg Potassium Chloride (Potassium Chloride Elixir) 20 meq GT DAILY R[facility]UNDO Stop: 09/05/17 08:59 Last Admin: 07/09/17 09:50 Dose: 20 meq Simvastatin (Zocor) 25 mg GT HS [facility] PRN Reason: Protocol Stop: 09/05/17 20:59 Last Admin: 07/08/17 21:42 Dose: 25 mg Warfarin Sodium (Coumadin) 6 mg PO 1300 [facility] Stop: 09/05/17 12:59 Last Admin: 07/09/17 12:59 Dose: 6 mg Zinc Sulfate (Zinc Sulfate) 220 mg PO DAILY [facility] Stop: 09/06/17 08:59 Last Admin: 07/09/17 09:50 Dose: 220 mg General: no acute distress, well developed, well nourished, cachectic HEENT: atraumatic, normocephalic, PERRLA, EOMI Neck: supple, no thyromegaly, no lymphadenopathy Cardiovascular: S1S2, regular Lungs: clear to auscultation bilaterally, clear to percussion Abdomen: soft, bowel sounds, no tender, no distended, no mass Extremities: other (left heel ulcer.), no cyanosis, no clubbing, no edema - Procedures Procedures: Procedures Procedure Code Date DEBORA SUBQ TISSUE 20 SQ CM/< 60608 07/06/17 EXCISION OF L FOOT SUBCU/FASCIA, OPEN APPROACH [id number] 07/06/17 Infectious Disease Assmt/Plan - Problem List Patient Problems: All Active Problems Chest congestion (Acute) R09.89 Rash (Acute) R21 - Assessment Assessment: 1. Aspiration pneumonia 2. Left heel ulcer, suspected osteomyelitis. ESR 99, CRP 7.2 3. DM2. 4. HTN. - Plan Plan: Change zosyn to rocephin 1 gm iV daily for 6 weeks. and give flagyl po for 10 days. Wound care. dc planning. Nutritional Asmnt/Malnutr-PDOC - Dietary Evaluation Malnutrition Findings (Please click <Entered> for more info): Nutritional Asmnt/Malnutrition Start: 07/07/17 14: 45 Text: Status: Complete Freq: Document 07/07/17 14:45 WENDI (Rec: 07/07/17 14:55 WENDI ALBA -[email or web address]) Nutritional Asmnt/Malnutrition Patient General Information Nutritional Screening Consult Diagnosis Pneumonia/hyponatremia/CHF/ pneumonia/sepsis Pertinent Medical Hx/Surgical Hx HTN, DM, CAD, CVA, TIA, dyslipidemia per MD notes Subjective Information RD received Nutrition Consult for pt on GTF, blood sugar 194 upon admit and unstageable pressure ulcer L heel. Pt seen resting in bed w/ TF infusing as per MD orders w/ daughter providing hygiene care at time of RD visit. Per RN, pt has been tolerating TF well so far. RN also reported BM x1 (soft stool). Current TF regimen does not meet optimal nutritional needs . Currently, pt is receiving 1800 kcal/daym 90 gm protein/ day, and 1227 ml free water/ day. This meets 86% of lower end of estimated caloric and protein needs. Pt is not appropriate for nutrition education. Current Diet Order/ Nutrition Support Diabetisource AC at 75 cc/hr x20 hours Patient / S.O Can't verbalize diet edu Pertinent Medications lasix, glipizide, culturelle, glucophage Pertinent Labs 07/06/17: Na 132 L, BG 118 H, CRE 0.6 L, HgA1c 8.8 H, ALB 3. 6 L, AST 61 H, TG 225 H Nutritional Hx/Data Height 1.68 m Height (Calculated Centimeters) 167.6 Current Weight (lbs) 69.4 kg Weight (Calculated Kilograms) 69.4 Weight (Calculated Grams) 63312.6 [place] Body Weight 142 lb, 65 kg % [place] Body Weight 108 Recent Weight Change No Weight Status Approriate GI Symptoms GI Symptoms None Food Allergies No Skin Integrity/Comment: Darrel scale: 12; per RN report, pt has a L foot wound Estimated Nutritional Goals BEE in Kcals: Using Current wt Calories/Kcals/Kg 30-35 kcal/kg CBW for sepsis, wound healing Kcals Calculated 4475-5340 kcal/day Protein: Using Current wt Protein g/k.5-2 gm/kg CBW for sepsis, wound healing Protein Calculated 105-140 gm/day Fluid: ml Per MD (CHF) Nutritional Problem 1. Problem Problem Increased nutritional needs Etiology related to metabolic demands Signs/Symptoms: as evidenced by estimated nutritional requirements for sepsis and wound healing. Malnutrition Alert Is there a minimum of two criteria No selected? Query Text:Check all the applicable criteria. A minimum of two criteria are recommended for diagnosis of either severe or non-severe malnutrition. Malnutrition Related to Morbid Obesity Malnutrition related to morbid obesity No Intervention/Recommendation Recommendations by RD Increase Calorie Intake Protein supplementation Comments * Recommend Diabetisource AC at 75 ml/hr x24 hours via GT Provides: 2160 kcal/day, 108 gm protein/day, and 1472 ml free water/day Meets: 103% of lower end of estimated caloric and protein needs Expected Outcomes/Goals Expected Outcomes/Goals - Monitor tolerance to EN support w/ goal of pt meeting at least 100% of estimated nutritional needs, labs trending WNL, normal GI function, and skin integrity/ wt maintenance within 2-3 days
[2017-07-09] MEDS: Insulin Detemir 100 units/mL 10mL Vial SUBQ SCH (20:41)
[2017-07-09] MEDS: Sodium Chloride 0.9% 1,000 ML IV SCH (20:49)
[2017-07-10] MEDS: Albuterol/Ipratropium Neb 3 ML AERS HHN SCH ×6 (03:04→22:30)
[2017-07-10 06:10] LABS: % BASOPHILS 1.4 % (0.0-2.0); % EOSINOPHILS 7.3 % (0.0-5.0); % LYMPHOCYTES 18.1 % (20.0-50.0); % MONOCYTES 7.2 % (2.0-10.0); HEMATOCRIT 33.9 % (41.0-60); HEMOGLOBIN 11.5 gm/dL (12-16); MEAN CELL VOLUME 87.8 fl (80-99); MEAN CORPUSCULAR HEMOGLOBIN 29.8 pg (27.0-31.0); MEAN CORPUSCULAR HGB CONC 33.9 pg (28.0-36.0); MEAN PLATELET VOLUME 8.1 fl; NEUTROPHILE ABSOLUTE 6.6 Th/cmm (1.8-8.0); PLATELET COUNT 375 Th/cmm (150-400); RED BLOOD COUNT 3.86 Mil/cmm (3.80-5.80); RED CELL DISTRIBUTION WIDTH 14.8 % (11.5-20.0); WHITE BLOOD COUNT 9.9 Th/cmm (4.8-10.8)
[2017-07-10 06:29] LABS: ALB/GLOB RATIO 0.9 (1.0-1.8); ALKALINE PHOSPHATASE 77 U/L (34-104); ANION GAP 9.1 (7.0-16.0); BILIRUBIN,TOTAL 0.3 mg/dL (0.3-1.0); BUN - UREA NITROGEN 20 mg/dL (7-25); BUN/CREATININE RATIO 33.3; CALCIUM SERUM 9.1 mg/dL (8.6-10.3); CARBON DIOXIDE 28.5 mEq/L (21.0-31.0); CHLORIDE 104 mEq/L (98-107); CREATININE - SERUM 0.6 mg/dL (0.7-1.3); GLUCOSE 171 mg/dL (70-105); POTASSIUM SERUM 3.6 mEq/L (3.5-5.1); SGOT 13 U/L (13-39); SGPT/ALT 11 U/L (7-52); SODIUM SERUM 138 mEq/L (136-145)
[2017-07-10] MEDS: INSULIN ASPART SLIDING SCALE 100 UNITS/ML UNIT SUBQ SCH ×4 (06:52→21:50)
[2017-07-10 08:23] LABS: INR 1.12 (0.5-1.4); PROTHROMBIN TIME (TEST) 11.7 SECONDS (9.5-11.5)
[2017-07-10] MEDS: Potassium Chloride Elixir 20 mEq /15 mL UDC GT SCH (08:48)
[2017-07-10] MEDS: Lactobacillus Rhamnosus 10 Billion CFU Capsule GT SCH (08:49)
[2017-07-10] MEDS: Multivitamin w/ Minerals Tab GT SCH (08:50)
[2017-07-10] MEDS: Venelex 60gm Tube TP SCH ×3 (09:07→20:55)
--- NOTE | 2017-07-10 10:16 | General Progress Note ---
Subjective - Review of Systems Events since last encounter: no new changes no fever Objective - Results Result Diagrams: 07/10/17 05:54 07/10/17 05:54 Recent Labs: Laboratory Last Values WBC 9.9 Th/cmm (4.8-10.8) 07/10/17 05:54 RBC 3.86 Mil/cmm (3.80-5.80) 07/10/17 05:54 Hgb 11.5 gm/dL (12-16) L 07/10/17 05:54 Hct 33.9 % (41.0-60) L 07/10/17 05:54 MCV 87.8 fl (80-99) 07/10/17 05:54 MCH 29.8 pg (27.0-31.0) 07/10/17 05:54 MCHC Differential 33.9 pg (28.0-36.0) 07/10/17 05:54 RDW 14.8 % (11.5-20.0) 07/10/17 05:54 Plt Count 375 Th/cmm (150-400) 07/10/17 05:54 MPV 8.1 fl 07/10/17 05:54 Neutrophils % 66.0 % (40.0-80.0) 07/10/17 05:54 Lymphocytes % 18.1 % (20.0-50.0) L 07/10/17 05:54 Monocytes % 7.2 % (2.0-10.0) 07/10/17 05:54 Eosinophils % 7.3 % (0.0-5.0) H 07/10/17 05:54 Basophils % 1.4 % (0.0-2.0) 07/10/17 05:54 ESR 99 mm/hr (0-20) H 07/08/17 04:32 PT 11.7 SECONDS (9.5-11.5) H 07/10/17 08:00 INR 1.12 (0.5-1.4) 07/10/17 08:00 PTT (Actin FS) 25.4 SECONDS (26.0-38.0) L 07/06/17 21:20 Sodium 138 mEq/L (136-145) 07/10/17 05:54 Potassium 3.6 mEq/L (3.5-5.1) 07/10/17 05:54 Chloride 104 mEq/L (98-107) 07/10/17 05:54 Carbon Dioxide 28.5 mEq/L (21.0-31.0) 07/10/17 05:54 Anion Gap 9.1 (7.0-16.0) 07/10/17 05:54 BUN 20 mg/dL (7-25) 07/10/17 05:54 Creatinine 0.6 mg/dL (0.7-1.3) L 07/10/17 05:54 Est GFR ( Amer) TNP 07/10/17 05:54 Est GFR (Non-Af Amer) TNP 07/10/17 05:54 BUN/Creatinine Ratio 33.3 07/10/17 05:54 Glucose 171 mg/dL (70-105) H 07/10/17 05:54 POC Glucose 167 MG/DL (70 - 105) H 07/10/17 06:27 Hemoglobin A1c % 8.8 % (4.0-6.0) H 07/06/17 21:20 Whole Bld Lactic Acid 1.91 mmol/L (0.60-1.99) 07/06/17 21:20 Calcium 9.1 mg/dL (8.6-10.3) 07/10/17 05:54 Total Bilirubin 0.3 mg/dL (0.3-1.0) 07/10/17 05:54 AST 13 U/L (13-39) 07/10/17 05:54 ALT 11 U/L (7-52) 07/10/17 05:54 Alkaline Phosphatase 77 U/L (34-104) 07/10/17 05:54 Creatine Kinase 96 U/L (30-223) 07/06/17 21:20 Troponin I 0.02 ng/mL (0.01-0.05) 07/06/17 21:20 C-Reactive Protein 7.2 mg/dL (0.0-0.9) H 07/08/17 04:32 B-Natriuretic Peptide 225.0 pg/mL (5.0-100.0) H 07/08/17 04:32 Total Protein 7.1 gm/dL (6.0-8.3) 07/10/17 05:54 Albumin 3.3 gm/dL (4.2-5.5) L 07/10/17 05:54 Globulin 3.8 gm/dL 07/10/17 05:54 Albumin/Globulin Ratio 0.9 (1.0-1.8) L 07/10/17 05:54 Triglycerides 225 mg/dL (<150) H 07/06/17 21:20 Cholesterol 183 mg/dL (<200) 07/06/17 21:20 LDL Cholesterol Direct 102 mg/dL (75-193) 07/06/17 21:20 HDL Cholesterol 34 mg/dL (23-92) 07/06/17 21:20 Urine Source CATH 07/08/17 17:50 Urine Color YELLOW 07/08/17 17:50 Urine Clarity CLEAR (CLEAR) 07/08/17 17:50 Urine pH 6.5 (4.6 - 8.0) 07/08/17 17:50 Ur Specific [place] 1.015 (1.005-1.030) 07/08/17 17:50 Urine Protein NEGATIVE mg/dL (NEGATIVE) 07/08/17 17:50 Urine Glucose (UA) NEGATIVE mg/dL (NEGATIVE) 07/08/17 17:50 Urine Ketones NEGATIVE mg/dL (NEGATIVE) 07/08/17 17:50 Urine Blood NEGATIVE (NEGATIVE) 07/08/17 17:50 Urine Nitrate NEGATIVE (NEGATIVE) 07/08/17 17:50 Urine Bilirubin NEGATIVE (NEGATIVE) 07/08/17 17:50 Urine Urobilinogen 0.2 E.U./dL (0.2 - 1.0) 07/08/17 17:50 Ur Leukocyte Esterase NEGATIVE (NEGATIVE) 07/08/17 17:50 Urine RBC NONE SEEN /hpf (0-5) 07/08/17 17:50 Urine WBC NONE SEEN /hpf (0-5) 07/08/17 17:50 Ur Epithelial Cells NONE SEEN /lpf (FEW) 07/08/17 17:50 Urine Bacteria NONE SEEN /hpf (NONE SEEN) 07/08/17 17:50 - Physical Exam Vitals and I&O: Vital Signs Temp 97.6 F 07/10/17 04:00 Pulse 114 07/10/17 07:10 Resp 16 07/10/17 07:10 BP 128/75 07/10/17 08:49 Pulse Ox 93 07/10/17 07:10 Intake & Output 07/09/17 07/10/1717 18:59 06:59 18:59 Intake Total 50 744 Balance 50 744 Weight (lbs) 69.4 kg 69.995 kg Intake: Intake, IV Amount 50 744 Piperacillin Sodium/ 50 50 Tazobact 4.5 gm In Sodium Chloride 0.9% 50 ml @ 50 mls/hr IV Q8HR [facility] Rx#: [id number] Sodium Chloride 0.9% 1, 694 000 ml @ 30 mls/hr IV . Q24H [facility] Rx#:[id number] Other: # Voids 2 # Bowel Movements 1 Stool Characteristics Soft Soft Active Medications: Current Medications Acetaminophen (Tylenol) 650 mg PO Q6HR PRN PRN Reason: Pain (Mild) Stop: 09/05/17 07:33 Last Admin: 07/10/17 08:49 Dose: 650 mg Albuterol/Ipratropium (Duoneb Neb) 3 ml HHN Q4HRT [facility] Stop: 09/05/17 10:59 Last Admin: 07/10/17 07:06 Dose: 3 ml Ascorbic Acid (Vitamin C) 500 mg PO DAILY [facility] Stop: 09/06/17 08:59 Last Admin: 07/10/17 08:51 Dose: 500 mg Docusate Sodium (Colace) 100 mg PO DAILY [facility] Stop: 09/06/17 08:59 Last Admin: 07/10/17 08:49 Dose: 100 mg Furosemide (Lasix) 40 mg IVP DAILY [facility] Stop: 09/05/17 08:59 Last Admin: 07/10/17 08:49 Dose: 40 mg Glipizide (Glucotrol) 10 mg GT DAILY [facility] Stop: 09/05/17 08:59 Last Admin: 07/10/17 08:50 Dose: 10 mg Hydrocortisone (Hydrocortisone 2.5%) 1 appl TP BID PRN PRN Reason: Itching Stop: 09/05/17 07:33 Last Admin: 07/10/17 09:07 Dose: 1 appl Piperacillin Sod/Tazobactam (Sod 4.5 gm/ Sodium Chloride) 50 mls @ 50 mls/hr IV Q8HR [facility] Stop: 09/05/17 13:59 Last Admin: 07/10/17 04:49 Dose: 50 mls/hr Sodium Chloride (Nacl 0.9%) 1,000 mls @ 30 mls/hr IV .Q24H [facility] Stop: 09/06/17 20:29 Last Admin: 07/09/17 20:49 Dose: 30 mls/hr Insulin Aspart (Novolog Insulin Sliding Scale) 0 units SUBQ ACHS [facility] PRN Reason: Protocol Stop: 09/05/17 11:29 Last Admin: 07/10/17 06:52 Dose: 2 units Insulin Detemir (Levemir Insulin) 10 units SUBQ HS [facility] PRN Reason: Protocol Stop: 09/05/17 20:59 Last Admin: 07/09/17 20:41 Dose: 10 units Lactobacillus Rhamnosus (Culturelle) 1 each GT DAILY [facility] Stop: 09/05/17 08:59 Last Admin: 07/10/17 08:49 Dose: 1 each Metformin HCl (Glucophage) 500 mg GT BID [facility] Stop: 09/05/17 08:59 Last Admin: 07/10/17 08:51 Dose: 500 mg Metoprolol Tartrate (Lopressor) 25 mg GT Q8HR [facility] Stop: 09/05/17 12:59 Last Admin: 07/10/17 05:30 Dose: Not Given Morphine Sulfate (Morphine) 1 mg IVP Q4HR PRN PRN Reason: MODERATE PAIN Stop: 09/05/17 15:39 Last Admin: 07/07/17 22:17 Dose: 1 mg Morphine Sulfate (Morphine) 2 mg IVP Q4HR PRN PRN Reason: Severe Pain Stop: 09/05/17 15:40 Last Admin: 07/08/17 03:51 Dose: 2 mg Potassium Chloride (Potassium Chloride Elixir) 20 meq GT DAILY [facility] Stop: 09/05/17 08:59 Last Admin: 07/10/17 08:48 Dose: 20 meq Simvastatin (Zocor) 25 mg GT HS [facility] PRN Reason: Protocol Stop: 09/05/17 20:59 Last Admin: 07/09/17 21:06 Dose: 25 mg Warfarin Sodium (Coumadin) 6 mg PO 1300 [facility] Stop: 09/05/17 12:59 Last Admin: 07/09/17 12:59 Dose: 6 mg Zinc Sulfate (Zinc Sulfate) 220 mg PO DAILY [facility] Stop: 09/06/17 08:59 Last Admin: 07/10/17 08:49 Dose: 220 mg General: Alert, No acute distress HEENT: Atraumatic Neck: Supple Cardiovascular: Regular rate, Normal S1, Normal S2 Lungs: Clear to auscultation - Procedures Procedures: Procedures Procedure Code Date DEBORA SUBQ TISSUE 20 SQ CM/< 09454 07/06/17 EXCISION OF L FOOT SUBCU/FASCIA, OPEN APPROACH [id number] 07/06/17 Assessment/Plan - Problem List Patient Problems: All Active Problems Chest congestion (Acute) R09.89 Rash (Acute) R21 - Plan Plan: cpm Nutritional Asmnt/Malnutr-PDOC - Dietary Evaluation Malnutrition Findings (Please click <Entered> for more info): Nutritional Asmnt/Malnutrition Start: 07/07/17 14: 45 Text: Status: Complete Freq: Document 07/07/17 14:45 WENDI (Rec: 07/07/17 14:55 WENDI ALBA -[email or web address]) Nutritional Asmnt/Malnutrition Patient General Information Nutritional Screening Consult Diagnosis Pneumonia/hyponatremia/CHF/ pneumonia/sepsis Pertinent Medical Hx/Surgical Hx HTN, DM, CAD, CVA, TIA, dyslipidemia per MD notes Subjective Information RD received Nutrition Consult for pt on GTF, blood sugar 194 upon admit and unstageable pressure ulcer L heel. Pt seen resting in bed w/ TF infusing as per MD orders w/ daughter providing hygiene care at time of RD visit. Per RN, pt has been tolerating TF well so far. RN also reported BM x1 (soft stool). Current TF regimen does not meet optimal nutritional needs . Currently, pt is receiving 1800 kcal/daym 90 gm protein/ day, and 1227 ml free water/ day. This meets 86% of lower end of estimated caloric and protein needs. Pt is not appropriate for nutrition education. Current Diet Order/ Nutrition Support Diabetisource AC at 75 cc/hr x20 hours Patient / S.O Can't verbalize diet edu Pertinent Medications lasix, glipizide, culturelle, glucophage Pertinent Labs 07/06/17: Na 132 L, BG 118 H, CRE 0.6 L, HgA1c 8.8 H, ALB 3. 6 L, AST 61 H, TG 225 H Nutritional Hx/Data Height 1.68 m Height (Calculated Centimeters) 167.6 Current Weight (lbs) 69.4 kg Weight (Calculated Kilograms) 69.4 Weight (Calculated Grams) 81950.6 [place] Body Weight 142 lb, 65 kg % [place] Body Weight 108 Recent Weight Change No Weight Status Approriate GI Symptoms GI Symptoms None Food Allergies No Skin Integrity/Comment: Darrel scale: 12; per RN report, pt has a L foot wound Estimated Nutritional Goals BEE in Kcals: Using Current wt Calories/Kcals/Kg 30-35 kcal/kg CBW for sepsis, wound healing Kcals Calculated 4511-3178 kcal/day Protein: Using Current wt Protein g/k.5-2 gm/kg CBW for sepsis, wound healing Protein Calculated 105-140 gm/day Fluid: ml Per MD (CHF) Nutritional Problem 1. Problem Problem Increased nutritional needs Etiology related to metabolic demands Signs/Symptoms: as evidenced by estimated nutritional requirements for sepsis and wound healing. Malnutrition Alert Is there a minimum of two criteria No selected? Query Text:Check all the applicable criteria. A minimum of two criteria are recommended for diagnosis of either severe or non-severe malnutrition. Malnutrition Related to Morbid Obesity Malnutrition related to morbid obesity No Intervention/Recommendation Recommendations by RD Increase Calorie Intake Protein supplementation Comments * Recommend Diabetisource AC at 75 ml/hr x24 hours via GT Provides: 2160 kcal/day, 108 gm protein/day, and 1472 ml free water/day Meets: 103% of lower end of estimated caloric and protein needs Expected Outcomes/Goals Expected Outcomes/Goals - Monitor tolerance to EN support w/ goal of pt meeting at least 100% of estimated nutritional needs, labs trending WNL, normal GI function, and skin integrity/ wt maintenance within 2-3 days
[2017-07-10] MEDS: Sodium Chloride 0.9% 1,000 ML IV SCH (20:55)
[2017-07-10] MEDS: Insulin Detemir 100 units/mL 10mL Vial SUBQ SCH (21:50)
[2017-07-11] MEDS: Albuterol/Ipratropium Neb 3 ML AERS HHN SCH ×5 (02:30→18:48)
[2017-07-11] MEDS: cefTRIAXone 2 GM in Sodium Chloride 0.9% 100 ML IV SCH (05:18)
[2017-07-11 06:01] LABS: INR 1.14 (0.5-1.4)
[2017-07-11] MEDS: INSULIN ASPART SLIDING SCALE 100 UNITS/ML UNIT SUBQ SCH ×4 (08:38→22:00)
[2017-07-11] MEDS: Lactobacillus Rhamnosus 10 Billion CFU Capsule GT SCH (09:27)
[2017-07-11] MEDS: Multivitamin w/ Minerals Tab GT SCH (09:27)
[2017-07-11] MEDS: Potassium Chloride Elixir 20 mEq /15 mL UDC GT SCH (09:27)
[2017-07-11] MEDS: Venelex 60gm Tube TP SCH ×3 (09:33→22:00)
[2017-07-11] MEDS: Sodium Chloride 0.9% 1,000 ML IV SCH (20:00)
--- NOTE | 2017-07-11 21:52 | Internal Medicine Prog Note ---
Internal Medicine Subjective - Subjective Service Date: 07/11/17 Patient seen and examined:: with staff Patient is:: awake Per staff patient has:: no adverse event Internal Medicine Objective - Results Result Diagrams: 07/10/17 05:54 07/10/17 05:54 Recent Labs: Laboratory Last Values WBC 9.9 Th/cmm (4.8-10.8) 07/10/17 05:54 RBC 3.86 Mil/cmm (3.80-5.80) 07/10/17 05:54 Hgb 11.5 gm/dL (12-16) L 07/10/17 05:54 Hct 33.9 % (41.0-60) L 07/10/17 05:54 MCV 87.8 fl (80-99) 07/10/17 05:54 MCH 29.8 pg (27.0-31.0) 07/10/17 05:54 MCHC Differential 33.9 pg (28.0-36.0) 07/10/17 05:54 RDW 14.8 % (11.5-20.0) 07/10/17 05:54 Plt Count 375 Th/cmm (150-400) 07/10/17 05:54 MPV 8.1 fl 07/10/17 05:54 Neutrophils % 66.0 % (40.0-80.0) 07/10/17 05:54 Lymphocytes % 18.1 % (20.0-50.0) L 07/10/17 05:54 Monocytes % 7.2 % (2.0-10.0) 07/10/17 05:54 Eosinophils % 7.3 % (0.0-5.0) H 07/10/17 05:54 Basophils % 1.4 % (0.0-2.0) 07/10/17 05:54 ESR 99 mm/hr (0-20) H 07/08/17 04:32 PT 12.0 SECONDS (9.5-11.5) H 07/11/17 05:41 INR 1.14 (0.5-1.4) 07/11/17 05:41 PTT (Actin FS) 25.4 SECONDS (26.0-38.0) L 07/06/17 21:20 Sodium 138 mEq/L (136-145) 07/10/17 05:54 Potassium 3.6 mEq/L (3.5-5.1) 07/10/17 05:54 Chloride 104 mEq/L (98-107) 07/10/17 05:54 Carbon Dioxide 28.5 mEq/L (21.0-31.0) 07/10/17 05:54 Anion Gap 9.1 (7.0-16.0) 07/10/17 05:54 BUN 20 mg/dL (7-25) 07/10/17 05:54 Creatinine 0.6 mg/dL (0.7-1.3) L 07/10/17 05:54 Est GFR ( Amer) TNP 07/10/17 05:54 Est GFR (Non-Af Amer) TNP 07/10/17 05:54 BUN/Creatinine Ratio 33.3 07/10/17 05:54 Glucose 171 mg/dL (70-105) H 07/10/17 05:54 POC Glucose 149 MG/DL (70 - 105) H 07/11/17 20:55 Hemoglobin A1c % 8.8 % (4.0-6.0) H 07/06/17 21:20 Whole Bld Lactic Acid 1.91 mmol/L (0.60-1.99) 07/06/17 21:20 Calcium 9.1 mg/dL (8.6-10.3) 07/10/17 05:54 Total Bilirubin 0.3 mg/dL (0.3-1.0) 07/10/17 05:54 AST 13 U/L (13-39) 07/10/17 05:54 ALT 11 U/L (7-52) 07/10/17 05:54 Alkaline Phosphatase 77 U/L (34-104) 07/10/17 05:54 Creatine Kinase 96 U/L (30-223) 07/06/17 21:20 Troponin I 0.02 ng/mL (0.01-0.05) 07/06/17 21:20 C-Reactive Protein 7.2 mg/dL (0.0-0.9) H 07/08/17 04:32 B-Natriuretic Peptide 225.0 pg/mL (5.0-100.0) H 07/08/17 04:32 Total Protein 7.1 gm/dL (6.0-8.3) 07/10/17 05:54 Albumin 3.3 gm/dL (4.2-5.5) L 07/10/17 05:54 Globulin 3.8 gm/dL 07/10/17 05:54 Albumin/Globulin Ratio 0.9 (1.0-1.8) L 07/10/17 05:54 Triglycerides 225 mg/dL (<150) H 07/06/17 21:20 Cholesterol 183 mg/dL (<200) 07/06/17 21:20 LDL Cholesterol Direct 102 mg/dL (75-193) 07/06/17 21:20 HDL Cholesterol 34 mg/dL (23-92) 07/06/17 21:20 Urine Source CATH 07/08/17 17:50 Urine Color YELLOW 07/08/17 17:50 Urine Clarity CLEAR (CLEAR) 07/08/17 17:50 Urine pH 6.5 (4.6 - 8.0) 07/08/17 17:50 Ur Specific [place] 1.015 (1.005-1.030) 07/08/17 17:50 Urine Protein NEGATIVE mg/dL (NEGATIVE) 07/08/17 17:50 Urine Glucose (UA) NEGATIVE mg/dL (NEGATIVE) 07/08/17 17:50 Urine Ketones NEGATIVE mg/dL (NEGATIVE) 07/08/17 17:50 Urine Blood NEGATIVE (NEGATIVE) 07/08/17 17:50 Urine Nitrate NEGATIVE (NEGATIVE) 07/08/17 17:50 Urine Bilirubin NEGATIVE (NEGATIVE) 07/08/17 17:50 Urine Urobilinogen 0.2 E.U./dL (0.2 - 1.0) 07/08/17 17:50 Ur Leukocyte Esterase NEGATIVE (NEGATIVE) 07/08/17 17:50 Urine RBC NONE SEEN /hpf (0-5) 07/08/17 17:50 Urine WBC NONE SEEN /hpf (0-5) 07/08/17 17:50 Ur Epithelial Cells NONE SEEN /lpf (FEW) 07/08/17 17:50 Urine Bacteria NONE SEEN /hpf (NONE SEEN) 07/08/17 17:50 - Physical Exam Vitals and I&O: Vital Signs Temp 98.2 F 07/11/17 15:52 Pulse 138 07/11/17 19:57 Resp 18 07/11/17 18:50 BP 125/78 07/11/17 19:57 Pulse Ox 94 07/11/17 18:50 Intake & Output 07/11/17 07/11/17 07/12/17 06:59 18:59 06:59 Intake Total 63.5 100 692.5 Balance 63.5 100 692.5 Weight (lbs) 60.056 kg 59.874 kg Intake: Intake, IV Amount 63.5 100 692.5 Sodium Chloride 0.9% 1, 63.5 692.5 000 ml @ 30 mls/hr IV . Q24H [facility] Rx#:[id number] cefTRIAXone 2 gm In 100 Sodium Chloride 0.9% 100 ml @ 100 mls/hr IV Q24H [facility] Rx#:[id number] Other: # Voids 2 Stool Characteristics Soft Soft Active Medications: Current Medications Acetaminophen (Tylenol) 650 mg PO Q6HR PRN PRN Reason: Pain (Mild) Stop: 09/05/17 07:33 Last Admin: 07/11/17 07:00 Dose: 650 mg Albuterol/Ipratropium (Duoneb Neb) 3 ml HHN Q6HRT [facility] Stop: 09/10/17 00:59 Ascorbic Acid (Vitamin C) 500 mg PO DAILY [facility] Stop: 09/06/17 08:59 Last Admin: 07/11/17 09:27 Dose: 500 mg Docusate Sodium (Colace) 100 mg PO DAILY [facility] Stop: 09/06/17 08:59 Last Admin: 07/11/17 09:27 Dose: 100 mg Furosemide (Lasix) 40 mg IVP DAILY [facility] Stop: 09/05/17 08:59 Last Admin: 07/11/17 09:34 Dose: Not Given Glipizide (Glucotrol) 10 mg GT DAILY [facility] Stop: 09/05/17 08:59 Last Admin: 07/11/17 09:27 Dose: 10 mg Hydrocortisone (Hydrocortisone 2.5%) 1 appl TP BID PRN PRN Reason: Itching Stop: 09/05/17 07:33 Last Admin: 07/10/17 09:07 Dose: 1 appl Sodium Chloride (Nacl 0.9%) 1,000 mls @ 30 mls/hr IV .Q24H [facility] Stop: 09/06/17 20:29 Last Admin: 07/11/17 20:00 Dose: 30 mls/hr Ceftriaxone Sodium 2 gm/ (Sodium Chloride) 100 mls @ 100 mls/hr IV Q24H [facility] Stop: 09/09/17 04:29 Last Infusion: 07/11/17 18:30 Dose: Infused Insulin Aspart (Novolog Insulin Sliding Scale) 0 units SUBQ ACHS [facility] PRN Reason: Protocol Stop: 09/05/17 11:29 Last Admin: 07/11/17 18:06 Dose: 2 units Insulin Detemir (Levemir Insulin) 10 units SUBQ HS [facility] PRN Reason: Protocol Stop: 09/05/17 20:59 Last Admin: 07/10/17 21:50 Dose: 10 units Lactobacillus Rhamnosus (Culturelle) 1 each GT DAILY [facility] Stop: 09/05/17 08:59 Last Admin: 07/11/17 09:27 Dose: 1 each Metformin HCl (Glucophage) 500 mg GT BID [facility] Stop: 09/05/17 08:59 Last Admin: 07/11/17 16:30 Dose: 500 mg Metoprolol Tartrate (Lopressor) 25 mg GT Q8HR [facility] Stop: 09/05/17 12:59 Last Admin: 07/11/17 19:57 Dose: 25 mg Metronidazole (Flagyl) 500 mg PO BID [facility] Stop: 07/18/17 17:01 Last Admin: 07/11/17 16:31 Dose: 500 mg Morphine Sulfate (Morphine) 1 mg IVP Q4HR PRN PRN Reason: MODERATE PAIN Stop: 09/05/17 15:39 Last Admin: 07/07/17 22:17 Dose: 1 mg Morphine Sulfate (Morphine) 2 mg IVP Q4HR PRN PRN Reason: Severe Pain Stop: 09/05/17 15:40 Last Admin: 07/08/17 03:51 Dose: 2 mg Potassium Chloride (Potassium Chloride Elixir) 20 meq GT DAILY [facility] Stop: 09/05/17 08:59 Last Admin: 07/11/17 09:27 Dose: 20 meq Simvastatin (Zocor) 25 mg GT HS [facility] PRN Reason: Protocol Stop: 09/05/17 20:59 Last Admin: 07/10/17 21:51 Dose: 25 mg Warfarin Sodium (Coumadin) 6 mg PO 1300 [facility] Stop: 09/05/17 12:59 Last Admin: 07/11/17 13:15 Dose: 6 mg Zinc Sulfate (Zinc Sulfate) 220 mg PO DAILY [facility] Stop: 09/06/17 08:59 Last Admin: 07/11/17 09:27 Dose: 220 mg HEENT: NC/AT, PERRLA Lungs: CTAB Cardiovascular: RRR, Normal S1, Normal S2 Abdomen: soft, non-tender, non-distended Neurological: alert - Procedures Procedures: Procedures Procedure Code Date DEBORA SUBQ TISSUE 20 SQ CM/< 70345 07/06/17 EXCISION OF L FOOT SUBCU/FASCIA, OPEN APPROACH [id number] 07/06/17 Internal Medicine Assmt/Plan - Assessment Assessment: Chest congestion (Acute) R09.89 Rash (Acute) R21 - Plan Plan: cpm Nutritional Asmnt/Malnutr-PDOC - Dietary Evaluation Malnutrition Findings (Please click <Entered> for more info): Nutritional Asmnt/Malnutrition Start: 07/07/17 14: 45 Text: Status: Complete Freq: Document 07/07/17 14:45 WENDI (Rec: 07/07/17 14:55 MPENAFUARIANNA ALBA -[email or web address]) Nutritional Asmnt/Malnutrition Patient General Information Nutritional Screening Consult Diagnosis Pneumonia/hyponatremia/CHF/ pneumonia/sepsis Pertinent Medical Hx/Surgical Hx HTN, DM, CAD, CVA, TIA, dyslipidemia per MD notes Subjective Information RD received Nutrition Consult for pt on GTF, blood sugar 194 upon admit and unstageable pressure ulcer L heel. Pt seen resting in bed w/ TF infusing as per MD orders w/ daughter providing hygiene care at time of RD visit. Per RN, pt has been tolerating TF well so far. RN also reported BM x1 (soft stool). Current TF regimen does not meet optimal nutritional needs . Currently, pt is receiving 1800 kcal/daym 90 gm protein/ day, and 1227 ml free water/ day. This meets 86% of lower end of estimated caloric and protein needs. Pt is not appropriate for nutrition education. Current Diet Order/ Nutrition Support Diabetisource AC at 75 cc/hr x20 hours Patient / S.O Can't verbalize diet edu Pertinent Medications lasix, glipizide, culturelle, glucophage Pertinent Labs 07/06/17: Na 132 L, BG 118 H, CRE 0.6 L, HgA1c 8.8 H, ALB 3. 6 L, AST 61 H, TG 225 H Nutritional Hx/Data Height 1.68 m Height (Calculated Centimeters) 167.6 Current Weight (lbs) 69.4 kg Weight (Calculated Kilograms) 69.4 Weight (Calculated Grams) 12444.6 [place] Body Weight 142 lb, 65 kg % [place] Body Weight 108 Recent Weight Change No Weight Status Approriate GI Symptoms GI Symptoms None Food Allergies No Skin Integrity/Comment: Darrel scale: 12; per RN report, pt has a L foot wound Estimated Nutritional Goals BEE in Kcals: Using Current wt Calories/Kcals/Kg 30-35 kcal/kg CBW for sepsis, wound healing Kcals Calculated 3463-1702 kcal/day Protein: Using Current wt Protein g/k.5-2 gm/kg CBW for sepsis, wound healing Protein Calculated 105-140 gm/day Fluid: ml Per MD ([facility]) Nutritional Problem 1. Problem Problem Increased nutritional needs Etiology related to metabolic demands Signs/Symptoms: as evidenced by estimated nutritional requirements for sepsis and wound healing. Malnutrition Alert Is there a minimum of two criteria No selected? Query Text:Check all the applicable criteria. A minimum of two criteria are recommended for diagnosis of either severe or non-severe malnutrition. Malnutrition Related to Morbid Obesity Malnutrition related to morbid obesity No Intervention/Recommendation Recommendations by RD Increase Calorie Intake Protein supplementation Comments * Recommend Diabetisource AC at 75 ml/hr x24 hours via GT Provides: 2160 kcal/day, 108 gm protein/day, and 1472 ml free water/day Meets: 103% of lower end of estimated caloric and protein needs Expected Outcomes/Goals Expected Outcomes/Goals - Monitor tolerance to EN support w/ goal of pt meeting at least 100% of estimated nutritional needs, labs trending WNL, normal GI function, and skin integrity/ wt maintenance within 2-3 days
[2017-07-11] MEDS: Insulin Detemir 100 units/mL 10mL Vial SUBQ SCH (22:00)
[2017-07-12] MEDS: Albuterol/Ipratropium Neb 3 ML AERS HHN SCH ×3 (00:32→13:52)
[2017-07-12 05:22] LABS: % BASOPHILS 1.3 % (0.0-2.0); % EOSINOPHILS 3.6 % (0.0-5.0); % LYMPHOCYTES 13.3 % (20.0-50.0); % NEUTROPHILS 72.8 % (40.0-80.0); HEMATOCRIT 36.3 % (41.0-60); HEMOGLOBIN 11.8 gm/dL (12-16); MEAN CELL VOLUME 88.7 fl (80-99); MEAN CORPUSCULAR HEMOGLOBIN 28.8 pg (27.0-31.0); MEAN CORPUSCULAR HGB CONC 32.5 pg (28.0-36.0); MEAN PLATELET VOLUME 8.7 fl; NEUTROPHILE ABSOLUTE 8.2 Th/cmm (1.8-8.0); PLATELET COUNT 440 Th/cmm (150-400); RED BLOOD COUNT 4.09 Mil/cmm (3.80-5.80); RED CELL DISTRIBUTION WIDTH 15.2 % (11.5-20.0); WHITE BLOOD COUNT 11.2 Th/cmm (4.8-10.8)
[2017-07-12] MEDS: cefTRIAXone 2 GM in Sodium Chloride 0.9% 100 ML IV SCH (05:29)
[2017-07-12 05:32] LABS: INR 1.33 (0.5-1.4)
[2017-07-12 05:44] LABS: ANION GAP 9.3 (7.0-16.0); BUN - UREA NITROGEN 21 mg/dL (7-25); CALCIUM SERUM 9.1 mg/dL (8.6-10.3); CARBON DIOXIDE 25.5 mEq/L (21.0-31.0); CHLORIDE 110 mEq/L (98-107); CREATININE - SERUM 0.6 mg/dL (0.7-1.3); GLUCOSE 224 mg/dL (70-105); POTASSIUM SERUM 3.8 mEq/L (3.5-5.1); SODIUM SERUM 141 mEq/L (136-145)
--- NOTE | 2017-07-12 08:24 | Diagnostic Imaging Report ---
CHEST X-RAY: AP view INDICATION: Shortness of breath COMPARISON: 07/09/2017 FINDINGS: Suboptimal lung volumes are seen with bibasal atelectatic changes. There may be a trace right effusion. No focal consolidation or evidence of CHF. Heart size at the upper limits of normal. Atherosclerosis is noted. IMPRESSION: Suboptimal lung volume with bibasal atelectatic changes and probable trace right effusion. No focal consolidation or evidence of camryn CHF.
[2017-07-12] MEDS: Multivitamin w/ Minerals Tab GT SCH (08:34)
[2017-07-12] MEDS: Potassium Chloride Elixir 20 mEq /15 mL UDC GT SCH (08:34)
[2017-07-12] MEDS: Lactobacillus Rhamnosus 10 Billion CFU Capsule GT SCH (08:34)
--- NOTE | 2017-07-12 08:46 | General Progress Note ---
Subjective - Review of Systems Events since last encounter: no new changes no acute distress Objective - Results Result Diagrams: 07/12/17 04:40 07/12/17 04:40 Recent Labs: Laboratory Last Values WBC 11.2 Th/cmm (4.8-10.8) H 07/12/17 04:40 RBC 4.09 Mil/cmm (3.80-5.80) 07/12/17 04:40 Hgb 11.8 gm/dL (12-16) L 07/12/17 04:40 Hct 36.3 % (41.0-60) L 07/12/17 04:40 MCV 88.7 fl (80-99) 07/12/17 04:40 MCH 28.8 pg (27.0-31.0) 07/12/17 04:40 MCHC Differential 32.5 pg (28.0-36.0) 07/12/17 04:40 RDW 15.2 % (11.5-20.0) 07/12/17 04:40 Plt Count 440 Th/cmm (150-400) H 07/12/17 04:40 MPV 8.7 fl 07/12/17 04:40 Neutrophils % 72.8 % (40.0-80.0) 07/12/17 04:40 Lymphocytes % 13.3 % (20.0-50.0) L 07/12/17 04:40 Monocytes % 9.0 % (2.0-10.0) 07/12/17 04:40 Eosinophils % 3.6 % (0.0-5.0) 07/12/17 04:40 Basophils % 1.3 % (0.0-2.0) 07/12/17 04:40 ESR 99 mm/hr (0-20) H 07/08/17 04:32 PT 14.0 SECONDS (9.5-11.5) H 07/12/17 04:40 INR 1.33 (0.5-1.4) 07/12/17 04:40 PTT (Actin FS) 25.4 SECONDS (26.0-38.0) L 07/06/17 21:20 Sodium 141 mEq/L (136-145) 07/12/17 04:40 Potassium 3.8 mEq/L (3.5-5.1) 07/12/17 04:40 Chloride 110 mEq/L (98-107) H 07/12/17 04:40 Carbon Dioxide 25.5 mEq/L (21.0-31.0) 07/12/17 04:40 Anion Gap 9.3 (7.0-16.0) 07/12/17 04:40 BUN 21 mg/dL (7-25) 07/12/17 04:40 Creatinine 0.6 mg/dL (0.7-1.3) L 07/12/17 04:40 Est GFR ( Amer) TNP 07/12/17 04:40 Est GFR (Non-Af Amer) TNP 07/12/17 04:40 BUN/Creatinine Ratio 35.0 07/12/17 04:40 Glucose 224 mg/dL (70-105) H 07/12/17 04:40 POC Glucose 149 MG/DL (70 - 105) H 07/11/17 20:55 Hemoglobin A1c % 8.8 % (4.0-6.0) H 07/06/17 21:20 Whole Bld Lactic Acid 1.91 mmol/L (0.60-1.99) 07/06/17 21:20 Calcium 9.1 mg/dL (8.6-10.3) 07/12/17 04:40 Total Bilirubin 0.3 mg/dL (0.3-1.0) 07/10/17 05:54 AST 13 U/L (13-39) 07/10/17 05:54 ALT 11 U/L (7-52) 07/10/17 05:54 Alkaline Phosphatase 77 U/L (34-104) 07/10/17 05:54 Creatine Kinase 96 U/L (30-223) 07/06/17 21:20 Troponin I 0.02 ng/mL (0.01-0.05) 07/06/17 21:20 C-Reactive Protein 7.2 mg/dL (0.0-0.9) H 07/08/17 04:32 B-Natriuretic Peptide 225.0 pg/mL (5.0-100.0) H 07/08/17 04:32 Total Protein 7.1 gm/dL (6.0-8.3) 07/10/17 05:54 Albumin 3.3 gm/dL (4.2-5.5) L 07/10/17 05:54 Globulin 3.8 gm/dL 07/10/17 05:54 Albumin/Globulin Ratio 0.9 (1.0-1.8) L 07/10/17 05:54 Triglycerides 225 mg/dL (<150) H 07/06/17 21:20 Cholesterol 183 mg/dL (<200) 07/06/17 21:20 LDL Cholesterol Direct 102 mg/dL (75-193) 07/06/17 21:20 HDL Cholesterol 34 mg/dL (23-92) 07/06/17 21:20 Urine Source CATH 07/08/17 17:50 Urine Color YELLOW 07/08/17 17:50 Urine Clarity CLEAR (CLEAR) 07/08/17 17:50 Urine pH 6.5 (4.6 - 8.0) 07/08/17 17:50 Ur Specific [place] 1.015 (1.005-1.030) 07/08/17 17:50 Urine Protein NEGATIVE mg/dL (NEGATIVE) 07/08/17 17:50 Urine Glucose (UA) NEGATIVE mg/dL (NEGATIVE) 07/08/17 17:50 Urine Ketones NEGATIVE mg/dL (NEGATIVE) 07/08/17 17:50 Urine Blood NEGATIVE (NEGATIVE) 07/08/17 17:50 Urine Nitrate NEGATIVE (NEGATIVE) 07/08/17 17:50 Urine Bilirubin NEGATIVE (NEGATIVE) 07/08/17 17:50 Urine Urobilinogen 0.2 E.U./dL (0.2 - 1.0) 07/08/17 17:50 Ur Leukocyte Esterase NEGATIVE (NEGATIVE) 07/08/17 17:50 Urine RBC NONE SEEN /hpf (0-5) 07/08/17 17:50 Urine WBC NONE SEEN /hpf (0-5) 07/08/17 17:50 Ur Epithelial Cells NONE SEEN /lpf (FEW) 07/08/17 17:50 Urine Bacteria NONE SEEN /hpf (NONE SEEN) 07/08/17 17:50 - Physical Exam Vitals and I&O: Vital Signs Temp 98.2 F 07/11/17 23:00 Pulse 98 07/12/17 06:58 Resp 22 07/12/17 06:58 BP 119/70 07/12/17 08:34 Pulse Ox 99 07/12/17 06:58 Intake & Output 1007/12/17 07/12/17 18:59 06:59 18:59 Intake Total 100 692.5 Balance 100 692.5 Weight (lbs) 59.874 kg Intake: Intake, IV Amount 100 692.5 Sodium Chloride 0.9% 1, 692.5 000 ml @ 30 mls/hr IV . Q24H [facility] Rx#:[id number] cefTRIAXone 2 gm In 100 Sodium Chloride 0.9% 100 ml @ 100 mls/hr IV Q24H [facility] Rx#:[id number] Other: # Voids 2 Stool Characteristics Soft Soft Liquid Active Medications: Current Medications Acetaminophen (Tylenol) 650 mg PO Q6HR PRN PRN Reason: Pain (Mild) Stop: 09/05/17 07:33 Last Admin: 07/12/17 06:25 Dose: 650 mg Albuterol/Ipratropium (Duoneb Neb) 3 ml HHN Q6HRT [facility] Stop: 09/10/17 00:59 Last Admin: 07/12/17 06:56 Dose: 3 ml Ascorbic Acid (Vitamin C) 500 mg PO DAILY [facility] Stop: 09/06/17 08:59 Last Admin: 07/12/17 08:34 Dose: 500 mg Docusate Sodium (Colace) 100 mg PO DAILY [facility] Stop: 09/06/17 08:59 Last Admin: 07/12/17 08:34 Dose: 100 mg Furosemide (Lasix) 40 mg IVP DAILY [facility] Stop: 09/05/17 08:59 Last Admin: 07/12/17 08:34 Dose: 40 mg Glipizide (Glucotrol) 10 mg GT DAILY [facility] Stop: 09/05/17 08:59 Last Admin: 07/12/17 08:34 Dose: 10 mg Hydrocortisone (Hydrocortisone 2.5%) 1 appl TP BID PRN PRN Reason: Itching Stop: 09/05/17 07:33 Last Admin: 07/10/17 09:07 Dose: 1 appl Sodium Chloride (Nacl 0.9%) 1,000 mls @ 30 mls/hr IV .Q24H [facility] Stop: 09/06/17 20:29 Last Admin: 07/11/17 20:00 Dose: 30 mls/hr Ceftriaxone Sodium 2 gm/ (Sodium Chloride) 100 mls @ 100 mls/hr IV Q24H [facility] Stop: 09/09/17 04:29 Last Admin: 07/12/17 05:29 Dose: 100 mls/hr Insulin Aspart (Novolog Insulin Sliding Scale) 0 units SUBQ ACHS [facility] PRN Reason: Protocol Stop: 09/05/17 11:29 Last Admin: 07/11/17 22:00 Dose: Not Given Insulin Detemir (Levemir Insulin) 10 units SUBQ HS [facility] PRN Reason: Protocol Stop: 09/05/17 20:59 Last Admin: 07/11/17 22:00 Dose: 10 units Lactobacillus Rhamnosus (Culturelle) 1 each GT DAILY [facility] Stop: 09/05/17 08:59 Last Admin: 07/12/17 08:34 Dose: 1 each Metformin HCl (Glucophage) 500 mg GT BID [facility] Stop: 09/05/17 08:59 Last Admin: 07/12/17 08:34 Dose: 500 mg Metoprolol Tartrate (Lopressor) 25 mg GT Q8HR [facility] Stop: 09/05/17 12:59 Last Admin: 07/12/17 05:31 Dose: 25 mg Metronidazole (Flagyl) 500 mg PO BID [facility] Stop: 07/18/17 17:01 Last Admin: 07/12/17 08:34 Dose: 500 mg Morphine Sulfate (Morphine) 1 mg IVP Q4HR PRN PRN Reason: MODERATE PAIN Stop: 09/05/17 15:39 Last Admin: 07/07/17 22:17 Dose: 1 mg Morphine Sulfate (Morphine) 2 mg IVP Q4HR PRN PRN Reason: Severe Pain Stop: 09/05/17 15:40 Last Admin: 07/08/17 03:51 Dose: 2 mg Potassium Chloride (Potassium Chloride Elixir) 20 meq GT DAILY [facility] Stop: 09/05/17 08:59 Last Admin: 07/12/17 08:34 Dose: 20 meq Simvastatin (Zocor) 25 mg GT HS [facility] PRN Reason: Protocol Stop: 09/05/17 20:59 Last Admin: 07/11/17 22:22 Dose: 25 mg Warfarin Sodium (Coumadin) 6 mg PO 1300 [facility] Stop: 09/05/17 12:59 Last Admin: 07/11/17 13:15 Dose: 6 mg Zinc Sulfate (Zinc Sulfate) 220 mg PO DAILY [facility] Stop: 09/06/17 08:59 Last Admin: 07/12/17 08:34 Dose: 220 mg General: Alert, No acute distress HEENT: Atraumatic Neck: Supple Cardiovascular: Regular rate, Normal S1, Normal S2 Lungs: Clear to auscultation - Procedures Procedures: Procedures Procedure Code Date DEBORA SUBQ TISSUE 20 SQ CM/< 60743 07/06/17 EXCISION OF L FOOT SUBCU/FASCIA, OPEN APPROACH [id number] 07/06/17 Assessment/Plan - Problem List Patient Problems: All Active Problems Chest congestion (Acute) R09.89 Rash (Acute) R21 - Assessment Assessment: Chest congestion (Acute) R09.89 Rash (Acute) R21 - Plan Plan: cpm Nutritional Asmnt/Malnutr-PDOC - Dietary Evaluation Malnutrition Findings (Please click <Entered> for more info): Nutritional Asmnt/Malnutrition Start: 07/07/17 14: 45 Text: Status: Complete Freq: Document 07/07/17 14:45 WENDI (Rec: 07/07/17 14:55 MPENAMARGA ALBA -FNS4) Nutritional Asmnt/Malnutrition Patient General Information Nutritional Screening Consult Diagnosis Pneumonia/hyponatremia/CHF/ pneumonia/sepsis Pertinent Medical Hx/Surgical Hx HTN, DM, CAD, CVA, TIA, dyslipidemia per MD notes Subjective Information RD received Nutrition Consult for pt on GTF, blood sugar 194 upon admit and unstageable pressure ulcer L heel. Pt seen resting in bed w/ TF infusing as per MD orders w/ daughter providing hygiene care at time of RD visit. Per RN, pt has been tolerating TF well so far. RN also reported BM x1 (soft stool). Current TF regimen does not meet optimal nutritional needs . Currently, pt is receiving 1800 kcal/daym 90 gm protein/ day, and 1227 ml free water/ day. This meets 86% of lower end of estimated caloric and protein needs. Pt is not appropriate for nutrition education. Current Diet Order/ Nutrition Support Diabetisource AC at 75 cc/hr x20 hours Patient / S.O Can't verbalize diet edu Pertinent Medications lasix, glipizide, culturelle, glucophage Pertinent Labs 07/06/17: Na 132 L, BG 118 H, CRE 0.6 L, HgA1c 8.8 H, ALB 3. 6 L, AST 61 H, TG 225 H Nutritional Hx/Data Height 1.68 m Height (Calculated Centimeters) 167.6 Current Weight (lbs) 69.4 kg Weight (Calculated Kilograms) 69.4 Weight (Calculated Grams) 38634.6 [place] Body Weight 142 lb, 65 kg % [place] Body Weight 108 Recent Weight Change No Weight Status Approriate GI Symptoms GI Symptoms None Food Allergies No Skin Integrity/Comment: Darrel scale: 12; per RN report, pt has a L foot wound Estimated Nutritional Goals BEE in Kcals: Using Current wt Calories/Kcals/Kg 30-35 kcal/kg CBW for sepsis, wound healing Kcals Calculated 5581-9829 kcal/day Protein: Using Current wt Protein g/k.5-2 gm/kg CBW for sepsis, wound healing Protein Calculated 105-140 gm/day Fluid: ml Per MD ([facility]) Nutritional Problem 1. Problem Problem Increased nutritional needs Etiology related to metabolic demands Signs/Symptoms: as evidenced by estimated nutritional requirements for sepsis and wound healing. Malnutrition Alert Is there a minimum of two criteria No selected? Query Text:Check all the applicable criteria. A minimum of two criteria are recommended for diagnosis of either severe or non-severe malnutrition. Malnutrition Related to Morbid Obesity Malnutrition related to morbid obesity No Intervention/Recommendation Recommendations by RD Increase Calorie Intake Protein supplementation Comments * Recommend Diabetisource AC at 75 ml/hr x24 hours via GT Provides: 2160 kcal/day, 108 gm protein/day, and 1472 ml free water/day Meets: 103% of lower end of estimated caloric and protein needs Expected Outcomes/Goals Expected Outcomes/Goals - Monitor tolerance to EN support w/ goal of pt meeting at least 100% of estimated nutritional needs, labs trending WNL, normal GI function, and skin integrity/ wt maintenance within 2-3 days
[2017-07-12] MEDS: Venelex 60gm Tube TP SCH ×2 (08:49→13:32)
--- NOTE | 2017-07-12 10:58 | Infectious Disease Prog Note ---
Infectious Disease Subjective - Review of Systems Service Date: 07/12/17 Subjective: There is no new change, there is no fever. Infectious Disease Objective - Results Result Diagrams: 07/12/17 04:40 07/12/17 04:40 Recent Labs: Laboratory Last Values WBC 11.2 Th/cmm (4.8-10.8) H 07/12/17 04:40 RBC 4.09 Mil/cmm (3.80-5.80) 07/12/17 04:40 Hgb 11.8 gm/dL (12-16) L 07/12/17 04:40 Hct 36.3 % (41.0-60) L 07/12/17 04:40 MCV 88.7 fl (80-99) 07/12/17 04:40 MCH 28.8 pg (27.0-31.0) 07/12/17 04:40 MCHC Differential 32.5 pg (28.0-36.0) 07/12/17 04:40 RDW 15.2 % (11.5-20.0) 07/12/17 04:40 Plt Count 440 Th/cmm (150-400) H 07/12/17 04:40 MPV 8.7 fl 07/12/17 04:40 Neutrophils % 72.8 % (40.0-80.0) 07/12/17 04:40 Lymphocytes % 13.3 % (20.0-50.0) L 07/12/17 04:40 Monocytes % 9.0 % (2.0-10.0) 07/12/17 04:40 Eosinophils % 3.6 % (0.0-5.0) 07/12/17 04:40 Basophils % 1.3 % (0.0-2.0) 07/12/17 04:40 ESR 99 mm/hr (0-20) H 07/08/17 04:32 PT 14.0 SECONDS (9.5-11.5) H 07/12/17 04:40 INR 1.33 (0.5-1.4) 07/12/17 04:40 PTT (Actin FS) 25.4 SECONDS (26.0-38.0) L 07/06/17 21:20 Sodium 141 mEq/L (136-145) 07/12/17 04:40 Potassium 3.8 mEq/L (3.5-5.1) 07/12/17 04:40 Chloride 110 mEq/L (98-107) H 07/12/17 04:40 Carbon Dioxide 25.5 mEq/L (21.0-31.0) 07/12/17 04:40 Anion Gap 9.3 (7.0-16.0) 07/12/17 04:40 BUN 21 mg/dL (7-25) 07/12/17 04:40 Creatinine 0.6 mg/dL (0.7-1.3) L 07/12/17 04:40 Est GFR ( Amer) TNP 07/12/17 04:40 Est GFR (Non-Af Amer) TNP 07/12/17 04:40 BUN/Creatinine Ratio 35.0 07/12/17 04:40 Glucose 224 mg/dL (70-105) H 07/12/17 04:40 POC Glucose 149 MG/DL (70 - 105) H 07/11/17 20:55 Hemoglobin A1c % 8.8 % (4.0-6.0) H 07/06/17 21:20 Whole Bld Lactic Acid 1.91 mmol/L (0.60-1.99) 07/06/17 21:20 Calcium 9.1 mg/dL (8.6-10.3) 07/12/17 04:40 Total Bilirubin 0.3 mg/dL (0.3-1.0) 07/10/17 05:54 AST 13 U/L (13-39) 07/10/17 05:54 ALT 11 U/L (7-52) 07/10/17 05:54 Alkaline Phosphatase 77 U/L (34-104) 07/10/17 05:54 Creatine Kinase 96 U/L (30-223) 07/06/17 21:20 Troponin I 0.02 ng/mL (0.01-0.05) 07/06/17 21:20 C-Reactive Protein 7.2 mg/dL (0.0-0.9) H 07/08/17 04:32 B-Natriuretic Peptide 225.0 pg/mL (5.0-100.0) H 07/08/17 04:32 Total Protein 7.1 gm/dL (6.0-8.3) 07/10/17 05:54 Albumin 3.3 gm/dL (4.2-5.5) L 07/10/17 05:54 Globulin 3.8 gm/dL 07/10/17 05:54 Albumin/Globulin Ratio 0.9 (1.0-1.8) L 07/10/17 05:54 Triglycerides 225 mg/dL (<150) H 07/06/17 21:20 Cholesterol 183 mg/dL (<200) 07/06/17 21:20 LDL Cholesterol Direct 102 mg/dL (75-193) 07/06/17 21:20 HDL Cholesterol 34 mg/dL (23-92) 07/06/17 21:20 Urine Source CATH 07/08/17 17:50 Urine Color YELLOW 07/08/17 17:50 Urine Clarity CLEAR (CLEAR) 07/08/17 17:50 Urine pH 6.5 (4.6 - 8.0) 07/08/17 17:50 Ur Specific [place] 1.015 (1.005-1.030) 07/08/17 17:50 Urine Protein NEGATIVE mg/dL (NEGATIVE) 07/08/17 17:50 Urine Glucose (UA) NEGATIVE mg/dL (NEGATIVE) 07/08/17 17:50 Urine Ketones NEGATIVE mg/dL (NEGATIVE) 07/08/17 17:50 Urine Blood NEGATIVE (NEGATIVE) 07/08/17 17:50 Urine Nitrate NEGATIVE (NEGATIVE) 07/08/17 17:50 Urine Bilirubin NEGATIVE (NEGATIVE) 07/08/17 17:50 Urine Urobilinogen 0.2 E.U./dL (0.2 - 1.0) 07/08/17 17:50 Ur Leukocyte Esterase NEGATIVE (NEGATIVE) 07/08/17 17:50 Urine RBC NONE SEEN /hpf (0-5) 07/08/17 17:50 Urine WBC NONE SEEN /hpf (0-5) 07/08/17 17:50 Ur Epithelial Cells NONE SEEN /lpf (FEW) 07/08/17 17:50 Urine Bacteria NONE SEEN /hpf (NONE SEEN) 07/08/17 17:50 - Physical Exam Vitals and I&O: Vital Signs Temp 98.2 F 07/11/17 23:00 Pulse 98 07/12/17 06:58 Resp 22 07/12/17 06:58 BP 119/70 07/12/17 08:34 Pulse Ox 99 07/12/17 06:58 Intake & Output 07/11/17 07/12/17 07/12/17 18:59 06:59 18:59 Intake Total 100 692.5 Balance 100 692.5 Weight (lbs) 59.874 kg Intake: Intake, IV Amount 100 692.5 Sodium Chloride 0.9% 1, 692.5 000 ml @ 30 mls/hr IV . Q24H [facility] Rx#:[id number] cefTRIAXone 2 gm In 100 Sodium Chloride 0.9% 100 ml @ 100 mls/hr IV Q24H [facility] Rx#:[id number] Other: # Voids 2 Stool Characteristics Soft Soft Liquid Active Medications: Current Medications Acetaminophen (Tylenol) 650 mg PO Q6HR PRN PRN Reason: Pain (Mild) Stop: 09/05/17 07:33 Last Admin: 07/12/17 06:25 Dose: 650 mg Albuterol/Ipratropium (Duoneb Neb) 3 ml HHN Q6HRT [facility] Stop: 09/10/17 00:59 Last Admin: 07/12/17 06:56 Dose: 3 ml Ascorbic Acid (Vitamin C) 500 mg PO DAILY [facility] Stop: 09/06/17 08:59 Last Admin: 07/12/17 08:34 Dose: 500 mg Docusate Sodium (Colace) 100 mg PO DAILY [facility] Stop: 09/06/17 08:59 Last Admin: 07/12/17 08:34 Dose: 100 mg Furosemide (Lasix) 40 mg IVP DAILY [facility] Stop: 09/05/17 08:59 Last Admin: 07/12/17 08:34 Dose: 40 mg Glipizide (Glucotrol) 10 mg GT DAILY [facility] Stop: 09/05/17 08:59 Last Admin: 07/12/17 08:34 Dose: 10 mg Hydrocortisone (Hydrocortisone 2.5%) 1 appl TP BID PRN PRN Reason: Itching Stop: 09/05/17 07:33 Last Admin: 07/12/17 08:49 Dose: 1 appl Sodium Chloride (Nacl 0.9%) 1,000 mls @ 30 mls/hr IV .Q24H [facility] Stop: 09/06/17 20:29 Last Admin: 07/11/17 20:00 Dose: 30 mls/hr Ceftriaxone Sodium 2 gm/ (Sodium Chloride) 100 mls @ 100 mls/hr IV Q24H [facility] Stop: 09/09/17 04:29 Last Admin: 07/12/17 05:29 Dose: 100 mls/hr Insulin Aspart (Novolog Insulin Sliding Scale) 0 units SUBQ ACHS [facility] PRN Reason: Protocol Stop: 09/05/17 11:29 Last Admin: 07/11/17 22:00 Dose: Not Given Insulin Detemir (Levemir Insulin) 10 units SUBQ HS [facility] PRN Reason: Protocol Stop: 09/05/17 20:59 Last Admin: 07/11/17 22:00 Dose: 10 units Lactobacillus Rhamnosus (Culturelle) 1 each GT DAILY [facility] Stop: 09/05/17 08:59 Last Admin: 07/12/17 08:34 Dose: 1 each Metformin HCl (Glucophage) 500 mg GT BID [facility] Stop: 09/05/17 08:59 Last Admin: 07/12/17 08:34 Dose: 500 mg Metoprolol Tartrate (Lopressor) 25 mg GT Q8HR [facility] Stop: 09/05/17 12:59 Last Admin: 07/12/17 05:31 Dose: 25 mg Metronidazole (Flagyl) 500 mg PO BID [facility] Stop: 07/18/17 17:01 Last Admin: 07/12/17 08:34 Dose: 500 mg Morphine Sulfate (Morphine) 1 mg IVP Q4HR PRN PRN Reason: MODERATE PAIN Stop: 09/05/17 15:39 Last Admin: 07/07/17 22:17 Dose: 1 mg Morphine Sulfate (Morphine) 2 mg IVP Q4HR PRN PRN Reason: Severe Pain Stop: 09/05/17 15:40 Last Admin: 07/08/17 03:51 Dose: 2 mg Potassium Chloride (Potassium Chloride Elixir) 20 meq GT DAILY [facility] Stop: 09/05/17 08:59 Last Admin: 07/12/17 08:34 Dose: 20 meq Simvastatin (Zocor) 25 mg GT HS [facility] PRN Reason: Protocol Stop: 09/05/17 20:59 Last Admin: 07/11/17 22:22 Dose: 25 mg Warfarin Sodium (Coumadin) 6 mg PO 1300 [facility] Stop: 09/05/17 12:59 Last Admin: 07/11/17 13:15 Dose: 6 mg Zinc Sulfate (Zinc Sulfate) 220 mg PO DAILY [facility] Stop: 09/06/17 08:59 Last Admin: 07/12/17 08:34 Dose: 220 mg General: no acute distress HEENT: atraumatic, normocephalic, PERRLA Neck: supple, thyromegaly Cardiovascular: S1S2, regular Lungs: clear to auscultation bilaterally, clear to percussion Abdomen: soft, no tender, no distended, no rebound Extremities: no cyanosis, no clubbing Neurological: awake, alert, oriented Skin: other (left heel ulcer) - Procedures Procedures: Procedures Procedure Code Date DEBORA SUBQ TISSUE 20 SQ CM/< 58078 07/06/17 EXCISION OF L FOOT SUBCU/FASCIA, OPEN APPROACH [id number] 07/06/17 Infectious Disease Assmt/Plan - Problem List Patient Problems: All Active Problems Chest congestion (Acute) R09.89 Rash (Acute) R21 - Assessment Assessment: 1. Aspiration pneumonia 2. Left heel ulcer, suspected osteomyelitis. ESR 99, CRP 7.2 3. DM2. 4. HTN. - Plan Plan: Change zosyn to rocephin 1 gm iV daily for 6 weeks. and give flagyl po for 10 days. Wound care. dc planning. Nutritional Asmnt/Malnutr-PDOC - Dietary Evaluation Malnutrition Findings (Please click <Entered> for more info): Nutritional Asmnt/Malnutrition Start: 07/07/17 14: 45 Text: Status: Complete Freq: Document 07/07/17 14:45 WENDI (Rec: 07/07/17 14:55 MPENAFUARIANNA ALBA -[email or web address]) Nutritional Asmnt/Malnutrition Patient General Information Nutritional Screening Consult Diagnosis Pneumonia/hyponatremia/CHF/ pneumonia/sepsis Pertinent Medical Hx/Surgical Hx HTN, DM, CAD, CVA, TIA, dyslipidemia per MD notes Subjective Information RD received Nutrition Consult for pt on GTF, blood sugar 194 upon admit and unstageable pressure ulcer L heel. Pt seen resting in bed w/ TF infusing as per MD orders w/ daughter providing hygiene care at time of RD visit. Per RN, pt has been tolerating TF well so far. RN also reported BM x1 (soft stool). Current TF regimen does not meet optimal nutritional needs . Currently, pt is receiving 1800 kcal/daym 90 gm protein/ day, and 1227 ml free water/ day. This meets 86% of lower end of estimated caloric and protein needs. Pt is not appropriate for nutrition education. Current Diet Order/ Nutrition Support Diabetisource AC at 75 cc/hr x20 hours Patient / S.O Can't verbalize diet edu Pertinent Medications lasix, glipizide, culturelle, glucophage Pertinent Labs 07/06/17: Na 132 L, BG 118 H, CRE 0.6 L, HgA1c 8.8 H, ALB 3. 6 L, AST 61 H, TG 225 H Nutritional Hx/Data Height 1.68 m Height (Calculated Centimeters) 167.6 Current Weight (lbs) 69.4 kg Weight (Calculated Kilograms) 69.4 Weight (Calculated Grams) 23114.6 [place] Body Weight 142 lb, 65 kg % [place] Body Weight 108 Recent Weight Change No Weight Status Approriate GI Symptoms GI Symptoms None Food Allergies No Skin Integrity/Comment: Darrel scale: 12; per RN report, pt has a L foot wound Estimated Nutritional Goals BEE in Kcals: Using Current wt Calories/Kcals/Kg 30-35 kcal/kg CBW for sepsis, wound healing Kcals Calculated 4138-7325 kcal/day Protein: Using Current wt Protein g/k.5-2 gm/kg CBW for sepsis, wound healing Protein Calculated 105-140 gm/day Fluid: ml Per MD ([facility]) Nutritional Problem 1. Problem Problem Increased nutritional needs Etiology related to metabolic demands Signs/Symptoms: as evidenced by estimated nutritional requirements for sepsis and wound healing. Malnutrition Alert Is there a minimum of two criteria No selected? Query Text:Check all the applicable criteria. A minimum of two criteria are recommended for diagnosis of either severe or non-severe malnutrition. Malnutrition Related to Morbid Obesity Malnutrition related to morbid obesity No Intervention/Recommendation Recommendations by RD Increase Calorie Intake Protein supplementation Comments * Recommend Diabetisource AC at 75 ml/hr x24 hours via GT Provides: 2160 kcal/day, 108 gm protein/day, and 1472 ml free water/day Meets: 103% of lower end of estimated caloric and protein needs Expected Outcomes/Goals Expected Outcomes/Goals - Monitor tolerance to EN support w/ goal of pt meeting at least 100% of estimated nutritional needs, labs trending WNL, normal GI function, and skin integrity/ wt maintenance within 2-3 days
[2017-07-12] MEDS: INSULIN ASPART SLIDING SCALE 100 UNITS/ML UNIT SUBQ SCH ×3 (12:08→17:26)
--- NOTE | 2017-07-12 15:24 | Pathology Report ---
[id number] Collection Date: 07/08/2017 Surgeon: Dr. Georgette Omer Specimen Description: Debrided tissue, left heel Gross Description: Received in formalin is a 3.0 x 2.0 x 1.1 cm excision of ulcerated, grayish, necrotic appearing skin. Sectioning shows degenerated, ulcerated skin and soft tissue. [place] [employer] sections are submitted in one cassette. Microscopic Description: The histologic sections show ulcerated, necrotic skin with extensive suppurative inflammation present consisting of large collections of neutrophils within a degenerated and necrotic background. Diagnosis: Ulcerated, necrotic skin and soft tissue consistent with debridement, left heel. [facility]# [id number]
== END 2017-07-12 19:26 | DRG 853 ==
LOC: ER 20:43 → TELE 22:30
PROVIDERS: ADMIT Internal Medicine; ATTEND Internal Medicine
PROC: 0JBR0ZZ Excision of Left Foot Subcutaneous Tissue and Fascia, Open Approach (ICD-10-PCS; principal; 2017-07-08)
DX: A41.9 Sepsis, unspecified organism (principal); J69.0 Pneumonitis due to inhalation of food and vomit; J96.01 Acute respiratory failure with hypoxia; I50.31 Acute diastolic (congestive) heart failure; E87.1 Hypo-osmolality and hyponatremia; E11.621 Type 2 diabetes mellitus with foot ulcer; R13.10 Dysphagia, unspecified; L97.429 Non-pressure chronic ulcer of left heel and midfoot with unspecified severity; M86.8X8 Other osteomyelitis, other site; F03.90 Unspecified dementia, unspecified severity, without behavioral disturbance, psychotic disturbance, mood disturbance, and anxiety; L89.622 Pressure ulcer of left heel, stage 2; I11.0 Hypertensive heart disease with heart failure; E78.5 Hyperlipidemia, unspecified; J40 Bronchitis, not specified as acute or chronic; F41.9 Anxiety disorder, unspecified; I25.119 Atherosclerotic heart disease of native coronary artery with unspecified angina pectoris; E11.69 Type 2 diabetes mellitus with other specified complication; Z83.3 Family history of diabetes mellitus; Z82.49 Family history of ischemic heart disease and other diseases of the circulatory system; Z79.4 Long term (current) use of insulin; Z79.01 Long term (current) use of anticoagulants
CPT/HCPCS: 36415-UA; 71010-TC; 78315-TC; 80048-TC; 80053-TC; 80061-TC; 81001-TC; 82550-TC; 82948-90; 83036-90; 83605; 83880-TC; 84484-TC; 85025-TC; 85610-TC; 85652-TC; 85730-TC; 86141-TC; 87070; 87086-90; 88304-TC; 93005; 94640; 94760; A9503; J0696; J1815; J1940; J1956; J2001; J2250; J2270; J2543; J2704; J7030; V2790; X7704; Z7610

== ENCOUNTER 2017-10-21 19:38 | Inpatient (IN) | payer MEDICARE, MEDICAID ==
--- NOTE | 2017-10-21 20:03 | ED Physician Chart ---
ED Chief Complaint/HPI - Patient Information Date Seen:: 10/21/17 Time Seen:: 19:58 Chief Complaint:: Increased agitation History of Present Illness:: 77 yo male was brought by BLS from SNF to ER for evaluation of increased agitation and aggressive behaviors of hitting and grabbing staff members. Allergies:: Allergies Allergy/AdvReac Type Severity Reaction Status Date / Time No Known Allergies Allergy Verified 06/07/17 13:22 ED Review of Systems - Review of Systems General/Constitutional: No fever Skin: No bruising Head: No headache Eyes: No pain ENT: No nasal drainage Neck: No neck pain Cardio Vascular: No chest pain Pulmonary: No SOB GI: No nausea, No vomiting Musculoskeletal: No bone or joint pain Neurological: No focal symptoms ED Past Medical History - Past Medical History Past Medical History: HTN, DM, Dyslipidemia (hyperlipidemia), Other ( respiratory failure, CKD, G-tube status, dysphagia) Social History: Non Smoker, No Alcohol, No Drug Use Family Medical History - Family Member Mother History Unknown: Yes ED Physical Exam - Physical Examination General/Constitutional: Awake Head: Atraumatic Eyes: PERRL Skin: No ecchymosis ENMT: Nasal exam nl Neck: No nuchal rigidity Respiratory: No Wheeze/Rhonchi/Rales Cardio Vascular: RRR, No murmur, gallop, rubs, NL S1 S2 Other GI comments:: G-tube intact Extremities: normal strength in all extremities Neuro/Psych: No focal deficits ED Labs/Radiology/EKG Results - Radiology Results Results: CXR: no focal consolidation ED Assessment - Assessment General Assessment: Psychosis Normocytic Anemia Dehydration Assessment/Comments:: CBC, CMP, TSH, UA CXR, EKG NS 1L IV bolus [facility] Septic Shock - . Is Septic Shock (SBP<90, OR Lactate>4 mmol\L) present?: No ED Reassessment (Disposition) - Reassessment Reassessment Condition:: Unchanged - Patient Disposition Discharge/Transfer:: [facility] w/in this hosp Admitting Medical Physician:: Latha Mcgowan Admitting Psych Physician:: Jun Menezes ED Discharge Plan - Patient Disposition Admit/Discharge/Transfer: Other Care w/in this hosp Condition at Disposition: Unchanged
[2017-10-21 20:27] LABS: % BASOPHILS 0.9 % (0.0-2.0); % MONOCYTES 6.6 % (2.0-10.0); % NEUTROPHILS 66.5 % (40.0-80.0); BASOPHILE ABSOLUTE 0.1 Th/cumm (0-0.2); HEMATOCRIT 35.2 % (41.0-60); HEMOGLOBIN 11.4 gm/dL (12-16); LYMPHOCYTE ABSOLUTE 1.8 Th/cmm (1.5-3.0); MEAN CELL VOLUME 81.4 fl (80-99); MEAN CORPUSCULAR HEMOGLOBIN 26.3 pg (27.0-31.0); MEAN CORPUSCULAR HGB CONC 32.4 pg (28.0-36.0); MEAN PLATELET VOLUME 8.5 fl; MONOCYTE ABSOLUTE 0.7 Th/cmm (0.3-1.0); PLATELET COUNT 406 Th/cmm (150-400); RED BLOOD COUNT 4.33 Mil/cmm (3.80-5.80); RED CELL DISTRIBUTION WIDTH 18.6 % (11.5-20.0); WHITE BLOOD COUNT 10.6 Th/cmm (4.8-10.8)
[2017-10-21 20:43] LABS: ALBUMIN 3.5 gm/dL (4.2-5.5); ALKALINE PHOSPHATASE 87 U/L (34-104); ANION GAP 13.9 (7.0-16.0); BILIRUBIN,TOTAL 0.3 mg/dL (0.3-1.0); BUN - UREA NITROGEN 32 mg/dL (7-25); CALCIUM SERUM 9.2 mg/dL (8.6-10.3); CARBON DIOXIDE 25.1 mEq/L (21.0-31.0); CHLORIDE 106 mEq/L (98-107); CREATININE - SERUM 0.6 mg/dL (0.7-1.3); GLUCOSE 122 mg/dL (70-105); SGOT 14 U/L (13-39); SGPT/ALT 14 U/L (7-52); SODIUM SERUM 141 mEq/L (136-145); TOTAL PROTEIN,SERUM 7.1 gm/dL (6.0-8.3)
[2017-10-21] MEDS ORDERED: Sodium Chloride 0.9% 1,000 ML IV ONE (21:41)
[2017-10-21 23:49] VITALS: BP 132/68
[2017-10-21] MEDS ORDERED: Magnesium Hydroxide (MOM) 30 mL UDC PO PRN (23:50)
[2017-10-21] MEDS ORDERED: Maalox 30 mL Cup PO PRN (23:50)
[2017-10-21] MEDS ORDERED: Albuterol/Ipratropium Neb 3 ML AERS HHN PRN (23:54)
[2017-10-21] MEDS ORDERED: Hydrocodone/APAP 5mg/325mg Tab GT PRN (23:54)
[2017-10-22] MEDS: INSULIN ASPART SLIDING SCALE 100 UNITS/ML UNIT SUBQ SCH ×4 (07:01→22:12)
[2017-10-22] MEDS: Budesonide 0.5 Mg/2 mL Ud HHN SCH ×2 (07:46→20:38)
--- NOTE | 2017-10-22 08:26 | Diagnostic Imaging Report ---
Portable chest x-ray Time: 2022 Compared to prior exam 07/12/2017 History: Shortness of breath Allowing for portable technique the heart size is normal. No focal pulmonary parenchymal processes. No hilar or mediastinal abnormalities. Impression: No acute abnormalities.
[2017-10-22] MEDS ORDERED: PROTEIN SUPPLEMENT GT SCH (09:00)
[2017-10-22] MEDS ORDERED: LACTOBACILLUS RHAMNOSUS GT SCH (09:00)
[2017-10-22] MEDS: Atorvastatin Calcium 10 MG TAB GT SCH (09:47)
[2017-10-22] MEDS: Multivitamin w/ Minerals Tab GT SCH (09:48)
[2017-10-22] MEDS: Lactobacillus Rhamnosus GG 15 Billion CFU CAP.SPRINK GT SCH (09:48)
[2017-10-22] MEDS: Docusate Sodium 100 mg/10 mL UD GT SCH (09:48)
[2017-10-22] MEDS: Eucerin Cream 16 oz Jar TP SCH (10:00)
--- NOTE | 2017-10-22 12:05 | History & Physical ---
ADMIT DATE: 10/22/2017 CHIEF COMPLAINT: Agitation. HISTORY OF PRESENT ILLNESS: This is a 77-year-old male, who was admitted from detention facility to the Emergency Room due to increase in agitation and aggressive behaviors. REVIEW OF SYSTEMS: GENERAL: This is a 77-year-old male that appears as stated. Denies fever. Denies chills. HEAD: Denies headache. Denies dizziness. EYES: Denies eye pain. Denies blurring of vision. NECK: Denies neck pain. Denies nuchal rigidity. CHEST: Denies chest pain. Denies palpitation. PULMONARY: Denies coughing. Denies shortness of breath. GASTROINTESTINAL: Denies abdominal pain. Denies constipation. Denies diarrhea. MUSCULOSKELETAL: Denies muscle pain. Denies joint pain. SOCIAL HISTORY: The patient lived in a detention facility prior to hospitalization. FAMILY HISTORY: Unremarkable. PAST SURGICAL HISTORY: Unremarkable. PAST MEDICAL HISTORY: Includes hypertension, diabetes, hyperlipidemia, and anemia. PHYSICAL EXAMINATION: VITAL SIGNS: Temperature 97.8, heart rate of 89, respirations 20, blood pressure 110/63, and 96% on room air. HEAD: Atraumatic and normocephalic. EYES: Bilateral conjunctivae are clear. Bilateral pupils are equally round and reactive. NECK: Supple. No JVD. CARDIOVASCULAR: S1 and S2 without murmur. PULMONARY: Clear to auscultation. GASTROINTESTINAL: Soft and nontender without guarding. Positive bowel sounds. The patient has a gastrostomy tube in place. MUSCULOSKELETAL: No clubbing. No cyanosis noted. ASSESSMENT: 1. Dementia. 2. Chronic obstructive pulmonary disease. 3. Hyperlipidemia. 4. Diabetes mellitus. 5. Osteoarthritis. 6. Anxiety. 7. Hypertension. PLAN: We will admit the patient to Psychiatric Unit. We will follow up with the psychiatrist to monitor the patient's condition and behavior. We will do medication reconciliation accordingly. We will monitor the patient's nutritional status. Treatment plans were discussed with the patient's nurse. Treatment plans were discussed with Dr. Mcgowan. JOB# [id number]
[2017-10-22] MEDS: Insulin Detemir 100 units/mL 10mL Vial SUBQ SCH (22:13)
[2017-10-23] MEDS: Eucerin Cream 16 oz Jar TP SCH (06:35)
[2017-10-23] MEDS: INSULIN ASPART SLIDING SCALE 100 UNITS/ML UNIT SUBQ SCH ×4 (06:35→21:51)
[2017-10-23] MEDS: Budesonide 0.5 Mg/2 mL Ud HHN SCH ×2 (07:11→18:38)
[2017-10-23] MEDS: Lactobacillus Rhamnosus GG 15 Billion CFU CAP.SPRINK GT SCH (08:15)
[2017-10-23] MEDS: Atorvastatin Calcium 10 MG TAB GT SCH (08:16)
[2017-10-23] MEDS: Docusate Sodium 100 mg/10 mL UD GT SCH (08:17)
[2017-10-23] MEDS: Multivitamin w/ Minerals Tab GT SCH (08:17)
--- NOTE | 2017-10-23 09:12 | General Progress Note ---
Subjective - Review of Systems Events since last encounter: patient awake irritable continues to be withdrawn Objective - Results Result Diagrams: 10/21/17 20:20 10/21/17 20:20 Recent Labs: Laboratory Last Values WBC 10.6 Th/cmm (4.8-10.8) 10/21/17 20:20 RBC 4.33 Mil/cmm (3.80-5.80) 10/21/17 20:20 Hgb 11.4 gm/dL (12-16) L 10/21/17 20:20 Hct 35.2 % (41.0-60) L 10/21/17 20:20 MCV 81.4 fl (80-99) 10/21/17 20:20 MCH 26.3 pg (27.0-31.0) L 10/21/17 20:20 MCHC Differential 32.4 pg (28.0-36.0) 10/21/17 20:20 RDW 18.6 % (11.5-20.0) 10/21/17 20:20 Plt Count 406 Th/cmm (150-400) H 10/21/17 20:20 MPV 8.5 fl 10/21/17 20:20 Neutrophils % 66.5 % (40.0-80.0) 10/21/17 20:20 Lymphocytes % 17.0 % (20.0-50.0) L 10/21/17 20:20 Monocytes % 6.6 % (2.0-10.0) 10/21/17 20:20 Eosinophils % 9.0 % (0.0-5.0) H 10/21/17 20:20 Basophils % 0.9 % (0.0-2.0) 10/21/17 20:20 Sodium 141 mEq/L (136-145) 10/21/17 20:20 Potassium 4.0 mEq/L (3.5-5.1) 10/21/17 20:20 Chloride 106 mEq/L (98-107) 10/21/17 20:20 Carbon Dioxide 25.1 mEq/L (21.0-31.0) 10/21/17 20:20 Anion Gap 13.9 (7.0-16.0) 10/21/17 20:20 BUN 32 mg/dL (7-25) H 10/21/17 20:20 Creatinine 0.6 mg/dL (0.7-1.3) L 10/21/17 20:20 Est GFR ( Amer) TNP 10/21/17 20:20 Est GFR (Non-Af Amer) TNP 10/21/17 20:20 BUN/Creatinine Ratio 53.3 10/21/17 20:20 Glucose 122 mg/dL (70-105) H 10/21/17 20:20 POC Glucose 166 MG/DL (70 - 105) H 10/23/17 05:38 Calcium 9.2 mg/dL (8.6-10.3) 10/21/17 20:20 Total Bilirubin 0.3 mg/dL (0.3-1.0) 10/21/17 20:20 AST 14 U/L (13-39) 10/21/17 20:20 ALT 14 U/L (7-52) 10/21/17 20:20 Alkaline Phosphatase 87 U/L (34-104) 10/21/17 20:20 Total Protein 7.1 gm/dL (6.0-8.3) 10/21/17 20:20 Albumin 3.5 gm/dL (4.2-5.5) L 10/21/17 20:20 Globulin 3.6 gm/dL 10/21/17 20:20 Albumin/Globulin Ratio 1.0 (1.0-1.8) 10/21/17 20:20 TSH 1.69 uIU/ml (0.34-5.60) 10/21/17 20:20 - Physical Exam Vitals and I&O: Vital Signs Temp 98.0 F 10/22/17 15:54 Pulse 121 10/23/17 07:11 Resp 20 10/23/17 07:11 BP 131/82 10/23/17 06:02 Pulse Ox 94 10/23/17 07:11 Intake & Output 10/22/17 10/23/17 10/23/17 18:59 06:59 18:59 Intake Total 0 Balance 0 Intake: Oral 0 Other: # Voids 3 # Bowel Movements 1 Stool Characteristics Soft Active Medications: Current Medications Acetaminophen (Tylenol) 650 mg PO Q4HR PRN PRN Reason: Mild Pain / Temp above 100 Stop: 12/20/17 23:49 Acetaminophen/Hydrocodone Bitart ([place] 5mg/325mg) 1 tab GT Q6H PRN PRN Reason: Pain (Moderate) Stop: 12/20/17 23:53 Al Hydrox/Mg Hydrox/Simethicone (Maalox) 30 ml PO Q4HR PRN PRN Reason: GI DISTRESS Stop: 12/20/17 23:49 Albuterol/Ipratropium (Duoneb Neb) 3 ml HHN Q2HR PRN PRN Reason: Wheezing Stop: 12/20/17 23:53 Atorvastatin Calcium (Lipitor) 10 mg GT DAILY RAYMUNDO PRN Reason: Protocol Stop: 12/21/17 08:59 Last Admin: 10/23/17 08:16 Dose: 10 mg Budesonide (Pulmicort) 0.5 mg HHN BIDRT [facility]MUN[facility] Stop: 12/21/17 06:59 Last Admin: 10/23/17 07:11 Dose: 0.5 mg Clobetasol Propionate (Temovate 0.05% Cream) appl TP BID RAYMUNDO Stop: 12/21/17 08:59 Diphenhydramine HCl (Benadryl) 25 mg GT Q6HR PRN PRN Reason: Itching Stop: 12/20/17 23:53 Docusate Sodium (Colace) 100 mg GT DAILY RAYMUNDO Stop: 12/21/17 08:59 Last Admin: 10/23/17 08:17 Dose: 100 mg Donepezil HCl (Aricept) 5 mg GT HS [facility]MUNDO Stop: 12/21/17 20:59 Last Admin: 10/22/17 22:12 Dose: 5 mg Glipizide (Glucotrol) 10 mg GT QDAC RAYMUNDO Stop: 12/21/17 07:29 Last Admin: 10/23/17 06:35 Dose: 10 mg Hydrocortisone (Hydrocortisone 2.5%) appl TP BID PRN PRN Reason: Itching Stop: 12/20/17 23:53 Hydrocortisone (Hydrocortisone 2.5%) 1 appl TP BID RAYMUNDO Stop: 12/21/17 08:59 Insulin Aspart (Novolog Insulin Sliding Scale) 0 units SUBQ ACHS RAYMUNDO PRN Reason: Protocol Stop: 12/21/17 07:29 Last Admin: 10/23/17 06:35 Dose: 3 units Insulin Detemir (Levemir Insulin) 10 units SUBQ HS RAYMUNDO PRN Reason: Protocol Stop: 12/21/17 20:59 Last Admin: 10/22/17 22:13 Dose: 10 units Lactobacillus Rhamnosus (Culturelle 15b) 1 each GT DAILY RAYMUNDO Stop: 12/21/17 08:59 Last Admin: 10/23/17 08:15 Dose: 1 each Lorazepam (Ativan) 1 mg GT Q4HR PRN; Protocol PRN Reason: Agitation Stop: 12/20/17 23:53 Magnesium Hydroxide (Milk Of Magnesia) 30 ml PO HS PRN PRN Reason: Constipation Memantine (Namenda) 5 mg GT DAILY RAYMUNDO Stop: 12/21/17 08:59 Last Admin: 10/23/17 08:17 Dose: 5 mg Metformin HCl (Glucophage) 500 mg GT BIDWM RAYMUNDO Stop: 12/21/17 07:59 Last Admin: 10/23/17 08:16 Dose: 500 mg Metoprolol Tartrate (Lopressor) 25 mg GT Q8HR RAYMUNDO Stop: 12/21/17 12:59 Last Admin: 10/23/17 06:02 Dose: 25 mg Multi-Ingredient Cream (Euerin Cream) 1 appl TP [id number] [facility] Stop: 12/21/17 08:59 Last Admin: 10/23/17 06:35 Dose: Not Given Nystatin (Nystatin) 100,000 units PO BID RAYMUNDO Stop: 12/21/17 08:59 Last Admin: 10/23/17 08:56 Dose: 100,000 units Quetiapine Fumarate (Seroquel) 12.5 mg PO BID RAYMUNDO PRN Reason: Protocol Stop: 12/21/17 08:59 Last Admin: 10/23/17 08:16 Dose: 12.5 mg Zolpidem Tartrate (Ambien) 5 mg PO HS PRN PRN Reason: Insomnia Stop: 12/20/17 23:49 - Procedures Procedures: Procedures Procedure Code Date DEBORA SUBQ TISSUE 20 SQ CM/< 72092 07/06/17 EXCISION OF L FOOT SUBCU/FASCIA, OPEN APPROACH [id number] 07/06/17 Assessment/Plan - Problem List Patient Problems: All Active Problems Chest congestion (Acute) R09.89 Rash (Acute) R21
[2017-10-23] MEDS: Clobetasol Propionate 0.05% Cream 45 gm Tube TP SCH (17:46)
[2017-10-23] MEDS: Insulin Detemir 100 units/mL 10mL Vial SUBQ SCH (21:52)
[2017-10-24] MEDS: INSULIN ASPART SLIDING SCALE 100 UNITS/ML UNIT SUBQ SCH ×4 (07:02→20:43)
[2017-10-24] MEDS: Budesonide 0.5 Mg/2 mL Ud HHN SCH ×2 (07:15→18:30)
[2017-10-24] MEDS: Docusate Sodium 100 mg/10 mL UD GT SCH (09:32)
[2017-10-24] MEDS: Atorvastatin Calcium 10 MG TAB GT SCH (09:33)
[2017-10-24] MEDS: Multivitamin w/ Minerals Tab GT SCH (09:33)
[2017-10-24] MEDS: Lactobacillus Rhamnosus GG 15 Billion CFU CAP.SPRINK GT SCH (09:33)
[2017-10-24] MEDS: Clobetasol Propionate 0.05% Cream 45 gm Tube TP SCH ×2 (09:34→17:13)
--- NOTE | 2017-10-24 09:40 | General Progress Note ---
Subjective - Review of Systems Events since last encounter: in no distress Objective - Results Result Diagrams: 10/21/17 20:20 10/21/17 20:20 Recent Labs: Laboratory Last Values WBC 10.6 Th/cmm (4.8-10.8) 10/21/17 20:20 RBC 4.33 Mil/cmm (3.80-5.80) 10/21/17 20:20 Hgb 11.4 gm/dL (12-16) L 10/21/17 20:20 Hct 35.2 % (41.0-60) L 10/21/17 20:20 MCV 81.4 fl (80-99) 10/21/17 20:20 MCH 26.3 pg (27.0-31.0) L 10/21/17 20:20 MCHC Differential 32.4 pg (28.0-36.0) 10/21/17 20:20 RDW 18.6 % (11.5-20.0) 10/21/17 20:20 Plt Count 406 Th/cmm (150-400) H 10/21/17 20:20 MPV 8.5 fl 10/21/17 20:20 Neutrophils % 66.5 % (40.0-80.0) 10/21/17 20:20 Lymphocytes % 17.0 % (20.0-50.0) L 10/21/17 20:20 Monocytes % 6.6 % (2.0-10.0) 10/21/17 20:20 Eosinophils % 9.0 % (0.0-5.0) H 10/21/17 20:20 Basophils % 0.9 % (0.0-2.0) 10/21/17 20:20 Sodium 141 mEq/L (136-145) 10/21/17 20:20 Potassium 4.0 mEq/L (3.5-5.1) 10/21/17 20:20 Chloride 106 mEq/L (98-107) 10/21/17 20:20 Carbon Dioxide 25.1 mEq/L (21.0-31.0) 10/21/17 20:20 Anion Gap 13.9 (7.0-16.0) 10/21/17 20:20 BUN 32 mg/dL (7-25) H 10/21/17 20:20 Creatinine 0.6 mg/dL (0.7-1.3) L 10/21/17 20:20 Est GFR ( Amer) TNP 10/21/17 20:20 Est GFR (Non-Af Amer) TNP 10/21/17 20:20 BUN/Creatinine Ratio 53.3 10/21/17 20:20 Glucose 122 mg/dL (70-105) H 10/21/17 20:20 POC Glucose 108 MG/DL (70 - 105) H 10/24/17 05:44 Calcium 9.2 mg/dL (8.6-10.3) 10/21/17 20:20 Total Bilirubin 0.3 mg/dL (0.3-1.0) 10/21/17 20:20 AST 14 U/L (13-39) 10/21/17 20:20 ALT 14 U/L (7-52) 10/21/17 20:20 Alkaline Phosphatase 87 U/L (34-104) 10/21/17 20:20 Total Protein 7.1 gm/dL (6.0-8.3) 10/21/17 20:20 Albumin 3.5 gm/dL (4.2-5.5) L 10/21/17 20:20 Globulin 3.6 gm/dL 10/21/17 20:20 Albumin/Globulin Ratio 1.0 (1.0-1.8) 10/21/17 20:20 TSH 1.69 uIU/ml (0.34-5.60) 10/21/17 20:20 - Physical Exam Vitals and I&O: Vital Signs Temp 98.4 F 10/23/17 20:10 Pulse 94 10/24/17 07:20 Resp 18 10/24/17 07:20 BP 141/84 10/24/17 05:52 Pulse Ox 96 10/24/17 07:20 Intake & Output 10/23/17 10/24/17 10/24/17 18:59 06:59 18:59 Intake Total 0 0 Balance 0 0 Intake: Oral 0 0 Other: # Voids 4 3 # Bowel Movements 1 0 Active Medications: Current Medications Acetaminophen (Tylenol) 650 mg PO Q4HR PRN PRN Reason: Mild Pain / Temp above 100 Stop: 12/20/17 23:49 Acetaminophen/Hydrocodone Bitart ([place] 5mg/325mg) 1 tab GT Q6H PRN PRN Reason: Pain (Moderate) Stop: 12/20/17 23:53 Al Hydrox/Mg Hydrox/Simethicone (Maalox) 30 ml PO Q4HR PRN PRN Reason: GI DISTRESS Stop: 12/20/17 23:49 Albuterol/Ipratropium (Duoneb Neb) 3 ml HHN Q2HR PRN PRN Reason: Wheezing Stop: 12/20/17 23:53 Atorvastatin Calcium (Lipitor) 10 mg GT DAILY RAYMUNDO PRN Reason: Protocol Stop: 12/21/17 08:59 Last Admin: 10/24/17 09:33 Dose: 10 mg Budesonide (Pulmicort) 0.5 mg HHN BIDRT [facility] Stop: 12/21/17 06:59 Last Admin: 10/24/17 07:15 Dose: 0.5 mg Clobetasol Propionate (Temovate 0.05% Cream) 1 appl TP BID [facility] Stop: 12/22/17 16:59 Last Admin: 10/24/17 09:34 Dose: 1 appl Diphenhydramine HCl (Benadryl) 25 mg GT Q6HR PRN PRN Reason: Itching Stop: 12/20/17 23:53 Docusate Sodium (Colace) 100 mg GT DAILY [facility] Stop: 12/21/17 08:59 Last Admin: 10/24/17 09:32 Dose: 100 mg Donepezil HCl (Aricept) 5 mg GT HS [facility] Stop: 12/21/17 20:59 Last Admin: 10/23/17 21:50 Dose: 5 mg Glipizide (Glucotrol) 10 mg GT QDAC RAYMUNDO Stop: 12/21/17 07:29 Last Admin: 10/24/17 09:34 Dose: Not Given Hydrocortisone (Hydrocortisone 2.5%) 1 appl TP BID [facility] Stop: 12/21/17 08:59 Last Admin: 10/24/17 09:34 Dose: 1 appl Insulin Aspart (Novolog Insulin Sliding Scale) 0 units SUBQ ACHS RAYMUNDO PRN Reason: Protocol Stop: 12/21/17 07:29 Last Admin: 10/24/17 07:02 Dose: Not Given Insulin Detemir (Levemir Insulin) 10 units SUBQ HS RAYMUNDO PRN Reason: Protocol Stop: 12/21/17 20:59 Last Admin: 10/23/17 21:52 Dose: 10 units Lactobacillus Rhamnosus (Culturelle 15b) 1 each GT DAILY RAYMUNDO Stop: 12/21/17 08:59 Last Admin: 10/24/17 09:33 Dose: 1 each Lorazepam (Ativan) 1 mg GT Q4HR PRN; Protocol PRN Reason: Agitation Stop: 12/20/17 23:53 Magnesium Hydroxide (Milk Of Magnesia) 30 ml PO HS PRN PRN Reason: Constipation Memantine (Namenda) 5 mg GT DAILY RAYMUNDO Stop: 12/21/17 08:59 Last Admin: 10/24/17 09:33 Dose: 5 mg Metformin HCl (Glucophage) 500 mg GT BIDWM RAYMUNDO Stop: 12/21/17 07:59 Last Admin: 10/24/17 09:34 Dose: Not Given Metoprolol Tartrate (Lopressor) 25 mg GT Q8HR RAYMUNDO Stop: 12/21/17 12:59 Last Admin: 10/24/17 05:52 Dose: 25 mg Nystatin (Nystatin) 100,000 units PO BID RAYMUNDO Stop: 12/21/17 08:59 Last Admin: 10/24/17 09:34 Dose: 100,000 units Quetiapine Fumarate (Seroquel) 12.5 mg PO BID RAYMUNDO PRN Reason: Protocol Stop: 12/21/17 08:59 Last Admin: 10/24/17 09:33 Dose: 12.5 mg Zolpidem Tartrate (Ambien) 5 mg PO HS PRN PRN Reason: Insomnia Stop: 12/20/17 23:49 - Procedures Procedures: Procedures Procedure Code Date DEBORA SUBQ TISSUE 20 SQ CM/< 37034 07/06/17 EXCISION OF L FOOT SUBCU/FASCIA, OPEN APPROACH [id number] 07/06/17 Assessment/Plan - Problem List Patient Problems: All Active Problems Chest congestion (Acute) R09.89 Rash (Acute) R21
--- NOTE | 2017-10-24 12:22 | Psychosocial Evaluation ---
DATE OF SERVICE: 10/24/2017 PSYCHIATRIC INITIAL EVALUATION AND MENTAL STATUS EXAM AGE: 77. SEX: Male. PHYSICIAN: Clif Barahona M.D. CHIEF COMPLAINT: Hitting and grabbing the staff. HISTORY OF PRESENT ILLNESS: The patient is a 77-year-old male who was transferred to the hospital from [facility]. The patient has been aggressive and has been grabbing and hitting staff [facility]. Also, has been out of control and unable to follow any of staff directions. The patient also has been confused and easily agitated and irritable. He also is forgetful. He continued to be aggressive and uncooperative with the staff upon admission. Also confused and was not able to answer much of my questions. PAST PSYCHIATRIC HISTORY: The patient has history of what seems to be dementia and psychosis. PAST MEDICAL HISTORY: The patient has no major medical problems except the patient upon admission, was dehydrated. SOCIAL HISTORY: The patient lives in [facility]. No known alcohol or drug use. ALLERGIES: No known allergies. MENTAL STATUS EXAMINATION: The patient appears slightly older than stated age. Irritable mood. Agitated. Disorganized thoughts. The patient did not answer questions regarding hallucinations or delusions. He did not answer question regarding suicide or homicide. The patient is alert and oriented to situation, but not to place or person or date. Impaired immediate and recent memory, but intact remote memory. Poor insight and poor judgment. ASSESSMENT: PRIMARY DIAGNOSIS: Unspecified psychosis. SECONDARY DIAGNOSIS: Dementia, moderate to severe, with psychotic features. TREATMENT PLAN: Monitor the patient's behavior closely. Work on behavioral modification. We will add Seroquel 12.5 mg twice a day and will adjust the dose. ESTIMATED LENGTH OF STAY: 5-7 days. THE PATIENT'S STRENGTHS AND WEAKNESSES: The patient is compliant with taking his medications. Weaknesses is he has poor impulse control. AFTER DISCHARGE PLAN: The patient will return to [facility] and outpatient treatment and follow up there. CRITERIA FOR DISCHARGE: Better impulse control and less irritable and less agitated. JOB# [id number]
[2017-10-24] MEDS: Insulin Detemir 100 units/mL 10mL Vial SUBQ SCH (20:41)
[2017-10-25] MEDS: INSULIN ASPART SLIDING SCALE 100 UNITS/ML UNIT SUBQ SCH ×4 (06:34→21:03)
[2017-10-25] MEDS: Budesonide 0.5 Mg/2 mL Ud HHN SCH ×2 (07:20→20:22)
[2017-10-25] MEDS: Docusate Sodium 100 mg/10 mL UD GT SCH (09:33)
[2017-10-25] MEDS: Clobetasol Propionate 0.05% Cream 45 gm Tube TP SCH ×2 (09:33→18:03)
[2017-10-25] MEDS: Atorvastatin Calcium 10 MG TAB GT SCH (09:33)
[2017-10-25] MEDS: Lactobacillus Rhamnosus GG 15 Billion CFU CAP.SPRINK GT SCH (09:34)
[2017-10-25] MEDS: Multivitamin w/ Minerals Tab GT SCH (09:34)
--- NOTE | 2017-10-25 12:31 | Internal Medicine Prog Note ---
Internal Medicine Subjective - Subjective Service Date: 10/25/17 Patient seen and examined:: with staff Patient is:: awake, verbal Per staff patient has:: no adverse event Internal Medicine Objective - Results Result Diagrams: 10/21/17 20:20 10/21/17 20:20 Recent Labs: Laboratory Last Values WBC 10.6 Th/cmm (4.8-10.8) 10/21/17 20:20 RBC 4.33 Mil/cmm (3.80-5.80) 10/21/17 20:20 Hgb 11.4 gm/dL (12-16) L 10/21/17 20:20 Hct 35.2 % (41.0-60) L 10/21/17 20:20 MCV 81.4 fl (80-99) 10/21/17 20:20 MCH 26.3 pg (27.0-31.0) L 10/21/17 20:20 MCHC Differential 32.4 pg (28.0-36.0) 10/21/17 20:20 RDW 18.6 % (11.5-20.0) 10/21/17 20:20 Plt Count 406 Th/cmm (150-400) H 10/21/17 20:20 MPV 8.5 fl 10/21/17 20:20 Neutrophils % 66.5 % (40.0-80.0) 10/21/17 20:20 Lymphocytes % 17.0 % (20.0-50.0) L 10/21/17 20:20 Monocytes % 6.6 % (2.0-10.0) 10/21/17 20:20 Eosinophils % 9.0 % (0.0-5.0) H 10/21/17 20:20 Basophils % 0.9 % (0.0-2.0) 10/21/17 20:20 Sodium 141 mEq/L (136-145) 10/21/17 20:20 Potassium 4.0 mEq/L (3.5-5.1) 10/21/17 20:20 Chloride 106 mEq/L (98-107) 10/21/17 20:20 Carbon Dioxide 25.1 mEq/L (21.0-31.0) 10/21/17 20:20 Anion Gap 13.9 (7.0-16.0) 10/21/17 20:20 BUN 32 mg/dL (7-25) H 10/21/17 20:20 Creatinine 0.6 mg/dL (0.7-1.3) L 10/21/17 20:20 Est GFR ( Amer) TNP 10/21/17 20:20 Est GFR (Non-Af Amer) TNP 10/21/17 20:20 BUN/Creatinine Ratio 53.3 10/21/17 20:20 Glucose 122 mg/dL (70-105) H 10/21/17 20:20 POC Glucose 134 MG/DL (70 - 105) H 10/25/17 12:07 Calcium 9.2 mg/dL (8.6-10.3) 10/21/17 20:20 Total Bilirubin 0.3 mg/dL (0.3-1.0) 10/21/17 20:20 AST 14 U/L (13-39) 10/21/17 20:20 ALT 14 U/L (7-52) 10/21/17 20:20 Alkaline Phosphatase 87 U/L (34-104) 10/21/17 20:20 Total Protein 7.1 gm/dL (6.0-8.3) 10/21/17 20:20 Albumin 3.5 gm/dL (4.2-5.5) L 10/21/17 20:20 Globulin 3.6 gm/dL 10/21/17 20:20 Albumin/Globulin Ratio 1.0 (1.0-1.8) 10/21/17 20:20 TSH 1.69 uIU/ml (0.34-5.60) 10/21/17 20:20 - Physical Exam Vitals and I&O: Vital Signs Temp 98 F 10/25/17 06:15 Pulse 98 10/25/17 07:25 Resp 18 10/25/17 07:25 BP 149/80 10/25/17 06:15 Pulse Ox 96 10/25/17 07:25 Intake & Output 10/24/17 10/25/17 10/25/17 18:59 06:59 18:59 Intake Total 120 Output Total 1 Balance 119 Intake: Oral 120 Output: Stool 1 Other: # Voids 3 3 # Bowel Movements 2 1 Active Medications: Current Medications Acetaminophen (Tylenol) 650 mg PO Q4HR PRN PRN Reason: Mild Pain / Temp above 100 Stop: 12/20/17 23:49 Last Admin: 10/24/17 15:11 Dose: 650 mg Acetaminophen/Hydrocodone Bitart ([place] 5mg/325mg) 1 tab GT Q6H PRN PRN Reason: Pain (Moderate) Stop: 12/20/17 23:53 Al Hydrox/Mg Hydrox/Simethicone (Maalox) 30 ml PO Q4HR PRN PRN Reason: GI DISTRESS Stop: 12/20/17 23:49 Albuterol/Ipratropium (Duoneb Neb) 3 ml HHN Q2HR PRN PRN Reason: Wheezing Stop: 12/20/17 23:53 Atorvastatin Calcium (Lipitor) 10 mg GT DAILY RAYMUNDO PRN Reason: Protocol Stop: 12/21/17 08:59 Last Admin: 10/25/17 09:33 Dose: 10 mg Budesonide (Pulmicort) 0.5 mg HHN BIDRT RAYMUNDO Stop: 12/21/17 06:59 Last Admin: 10/25/17 07:20 Dose: 0.5 mg Clobetasol Propionate (Temovate 0.05% Cream) 1 appl TP BID RAYMUNDO Stop: 12/22/17 16:59 Last Admin: 10/25/17 09:33 Dose: 1 appl Diphenhydramine HCl (Benadryl) 25 mg GT Q6HR PRN PRN Reason: Itching Stop: 12/20/17 23:53 Docusate Sodium (Colace) 100 mg GT DAILY RAYMUNDO Stop: 12/21/17 08:59 Last Admin: 10/25/17 09:33 Dose: 100 mg Donepezil HCl (Aricept) 5 mg GT HS RAYMUNDO Stop: 12/21/17 20:59 Last Admin: 10/24/17 20:38 Dose: 5 mg Glipizide (Glucotrol) 10 mg GT QDAC RAYMUNDO Stop: 12/21/17 07:29 Last Admin: 10/25/17 06:35 Dose: 10 mg Hydrocortisone (Hydrocortisone 2.5%) 1 appl TP BID RAYMUNDO Stop: 12/21/17 08:59 Last Admin: 10/25/17 09:27 Dose: 1 appl Insulin Aspart (Novolog Insulin Sliding Scale) 0 units SUBQ ACHS RAYMUNDO PRN Reason: Protocol Stop: 12/21/17 07:29 Last Admin: 10/25/17 06:34 Dose: 5 units Insulin Detemir (Levemir Insulin) 10 units SUBQ HS RAYMUNDO PRN Reason: Protocol Stop: 12/21/17 20:59 Last Admin: 10/24/17 20:41 Dose: 10 units Lactobacillus Rhamnosus (Culturelle 15b) 1 each GT DAILY RAYMUNDO Stop: 12/21/17 08:59 Last Admin: 10/25/17 09:34 Dose: 1 each Lorazepam (Ativan) 1 mg GT Q4HR PRN; Protocol PRN Reason: Agitation Stop: 12/20/17 23:53 Magnesium Hydroxide (Milk Of Magnesia) 30 ml PO HS PRN PRN Reason: Constipation Memantine (Namenda) 5 mg GT DAILY [facility] Stop: 12/21/17 08:59 Last Admin: 10/25/17 09:34 Dose: 5 mg Metformin HCl (Glucophage) 500 mg GT BIDWM RAYMUNDO Stop: 12/21/17 07:59 Last Admin: 10/25/17 09:33 Dose: 500 mg Metoprolol Tartrate (Lopressor) 25 mg GT Q8HR RAYMUNDO Stop: 12/21/17 12:59 Last Admin: 10/25/17 05:05 Dose: 25 mg Mupirocin (Bactroban Oint) 1 appl NS BID [facility] Stop: 10/29/17 09:01 Last Admin: 10/25/17 09:34 Dose: 1 appl Nystatin (Nystatin) 100,000 units PO BID RAYMUNDO Stop: 12/21/17 08:59 Last Admin: 10/25/17 09:34 Dose: 100,000 units Quetiapine Fumarate (Seroquel) 12.5 mg PO BID RAYMUNDO PRN Reason: Protocol Stop: 12/21/17 08:59 Last Admin: 10/25/17 09:34 Dose: 12.5 mg Zolpidem Tartrate (Ambien) 5 mg PO HS PRN PRN Reason: Insomnia Stop: 12/20/17 23:49 General: alert HEENT: NC/AT, PERRLA Neck: Supple, No JVD Lungs: CTAB Abdomen: soft, non-tender, non-distended, positive bowel sound - Procedures Procedures: Procedures Procedure Code Date DEBORA SUBQ TISSUE 20 SQ CM/< 27281 07/06/17 EXCISION OF L FOOT SUBCU/FASCIA, OPEN APPROACH [id number] 07/06/17 Internal Medicine Assmt/Plan - Assessment Assessment: dementia copd hyperlipidemia dm2 oa htn - Plan Plan: continue current orders Nutritional Asmnt/Malnutr-PDOC - Dietary Evaluation Malnutrition Findings (Please click <Entered> for more info): Nutritional Asmnt/Malnutrition Start: 10/24/17 15: 28 Text: Status: Complete Freq: Document 10/24/17 15:28 NANCY (Rec: 10/24/17 15:46 LCHENG [email or web address]) Nutritional Asmnt/Malnutrition Patient General Information Nutritional Screening High Risk Diagnosis psychosis Pertinent Medical Hx/Surgical Hx HTN, DM, hyperlipidemia, anemia Subjective Information Consult received for GT/NPO/DM . Pt seen resting in bed at time of visit. Per RN, pt was tolerating bolus feeding well. Current Diet Order/ Nutrition Support diabetisource AC 300ml/hr q6hr , providing 1440kcal, 72 protein Pertinent Medications colace, glucotrol, novolog, levemir, culturelle, glucophage, seroquel Pertinent Labs 2/2 Na 141, k 4.0. Cl 106, BUN 32, Cr 0.6, Glucose 122, 2/3-2/5 POC 89-187 Nutritional Hx/Data Height 5 ft 6 in Height (Calculated Centimeters) 167.6 Current Weight (lbs) 150 lb Weight (Calculated Kilograms) 68.0 Weight (Calculated Grams) 15981.9 [place] Body Weight 142 % [place] Body Weight 107 Body Mass Index (BMI) 24.2 Weight Status Approriate GI Symptoms GI Symptoms None Last BM 2/4 Difficult in: None Skin Integrity/Comment: rash, redness, Darrel 12 Estimated Nutritional Goals BEE in Kcals: Using Current wt Calories/Kcals/Kg 25-30 Kcals Calculated 1471-3412 Protein: Using Current wt Protein g/k-1.2 Protein Calculated 68-82 Fluid: ml 1700-2040ml (1ml/kcal) Nutritional Problem 1. Problem Problem altered nutrition related lab values Etiology hx of DM Signs/Symptoms: glucose 122, POC 89-187 Malnutrition Alert Protein-Calorie Malnutrition N/A Is there a minimum of two criteria No selected? Query Text:Check all the applicable criteria. A minimum of two criteria are recommended for diagnosis of either severe or non-severe malnutrition. Intervention/Recommendation Comments 1. Continue with current TF regimen. 2. Monitor bolus feeding tolerance, wt, labs and skin integrity 3. F/U as moderate risk in 3-5 days, 10/27-10/29 Expected Outcomes/Goals Expected Outcomes/Goals 1. PO intake to meet at least 75% of nutritional needs. 2. Wt stability, skin to remain intact, labs to approach WNL.
[2017-10-25] MEDS: Insulin Detemir 100 units/mL 10mL Vial SUBQ SCH (21:02)
[2017-10-26] MEDS: INSULIN ASPART SLIDING SCALE 100 UNITS/ML UNIT SUBQ SCH ×4 (06:32→21:10)
[2017-10-26] MEDS: Budesonide 0.5 Mg/2 mL Ud HHN SCH ×2 (07:13→20:01)
--- NOTE | 2017-10-26 07:22 | Progress Notes ---
DATE: 10/23/2017 SUBJECTIVE: Chart reviewed and the patient interviewed. Also discussed the patient's condition with the staff and reviewed the records and labs. The patient continued to be easily agitated and he is in irritable and angry mood. The patient also is aggressive to staff and still showing poor impulse control. Also, is resisting care and have difficulty following any of the staff directions. On the other hand, the patient is compliant with taking his medications with no side effects of medications. ASSESSMENT: The patient is still aggressive and has poor impulse control and can be dangerous to others. The patient is still aggressive and psychotic. TREATMENT PLAN: Continue monitoring his behavior and his condition closely. Also, continue adjusting psychotropic medications and continue working on his difficulty controlling his impulse. Also continue adjusting psychotropic medications. JOB# [id number]
[2017-10-26] MEDS: Clobetasol Propionate 0.05% Cream 45 gm Tube TP SCH ×2 (09:34→17:27)
[2017-10-26] MEDS: Atorvastatin Calcium 10 MG TAB GT SCH (09:34)
[2017-10-26] MEDS: Docusate Sodium 100 mg/10 mL UD GT SCH (09:34)
[2017-10-26] MEDS: Lactobacillus Rhamnosus GG 15 Billion CFU CAP.SPRINK GT SCH (09:34)
[2017-10-26] MEDS: Multivitamin w/ Minerals Tab GT SCH (09:35)
--- NOTE | 2017-10-26 09:45 | General Progress Note ---
Subjective - Review of Systems Events since last encounter: patient aggressive towards staff Objective - Results Result Diagrams: 10/21/17 20:20 10/21/17 20:20 Recent Labs: Laboratory Last Values WBC 10.6 Th/cmm (4.8-10.8) 10/21/17 20:20 RBC 4.33 Mil/cmm (3.80-5.80) 10/21/17 20:20 Hgb 11.4 gm/dL (12-16) L 10/21/17 20:20 Hct 35.2 % (41.0-60) L 10/21/17 20:20 MCV 81.4 fl (80-99) 10/21/17 20:20 MCH 26.3 pg (27.0-31.0) L 10/21/17 20:20 MCHC Differential 32.4 pg (28.0-36.0) 10/21/17 20:20 RDW 18.6 % (11.5-20.0) 10/21/17 20:20 Plt Count 406 Th/cmm (150-400) H 10/21/17 20:20 MPV 8.5 fl 10/21/17 20:20 Neutrophils % 66.5 % (40.0-80.0) 10/21/17 20:20 Lymphocytes % 17.0 % (20.0-50.0) L 10/21/17 20:20 Monocytes % 6.6 % (2.0-10.0) 10/21/17 20:20 Eosinophils % 9.0 % (0.0-5.0) H 10/21/17 20:20 Basophils % 0.9 % (0.0-2.0) 10/21/17 20:20 Sodium 141 mEq/L (136-145) 10/21/17 20:20 Potassium 4.0 mEq/L (3.5-5.1) 10/21/17 20:20 Chloride 106 mEq/L (98-107) 10/21/17 20:20 Carbon Dioxide 25.1 mEq/L (21.0-31.0) 10/21/17 20:20 Anion Gap 13.9 (7.0-16.0) 10/21/17 20:20 BUN 32 mg/dL (7-25) H 10/21/17 20:20 Creatinine 0.6 mg/dL (0.7-1.3) L 10/21/17 20:20 Est GFR ( Amer) TNP 10/21/17 20:20 Est GFR (Non-Af Amer) TNP 10/21/17 20:20 BUN/Creatinine Ratio 53.3 10/21/17 20:20 Glucose 122 mg/dL (70-105) H 10/21/17 20:20 POC Glucose 130 MG/DL (70 - 105) H 10/26/17 05:46 Calcium 9.2 mg/dL (8.6-10.3) 10/21/17 20:20 Total Bilirubin 0.3 mg/dL (0.3-1.0) 10/21/17 20:20 AST 14 U/L (13-39) 10/21/17 20:20 ALT 14 U/L (7-52) 10/21/17 20:20 Alkaline Phosphatase 87 U/L (34-104) 10/21/17 20:20 Total Protein 7.1 gm/dL (6.0-8.3) 10/21/17 20:20 Albumin 3.5 gm/dL (4.2-5.5) L 10/21/17 20:20 Globulin 3.6 gm/dL 10/21/17 20:20 Albumin/Globulin Ratio 1.0 (1.0-1.8) 10/21/17 20:20 TSH 1.69 uIU/ml (0.34-5.60) 10/21/17 20:20 - Physical Exam Vitals and I&O: Vital Signs Temp 97.9 F 10/26/17 06:22 Pulse 102 10/26/17 07:14 Resp 18 10/26/17 07:14 BP 112/67 10/26/17 06:22 Pulse Ox 97 10/26/17 07:14 Intake & Output 10/25/17 10/26/17 10/26/17 18:59 06:59 18:59 Intake Total 120 Balance 120 Intake: Oral 120 Other: # Voids 3 3 # Bowel Movements 1 Active Medications: Current Medications Acetaminophen (Tylenol) 650 mg PO Q4HR PRN PRN Reason: Mild Pain / Temp above 100 Stop: 12/20/17 23:49 Last Admin: 10/24/17 15:11 Dose: 650 mg Acetaminophen/Hydrocodone Bitart ([place] 5mg/325mg) 1 tab GT Q6H PRN PRN Reason: Pain (Moderate) Stop: 12/20/17 23:53 Al Hydrox/Mg Hydrox/Simethicone (Maalox) 30 ml PO Q4HR PRN PRN Reason: GI DISTRESS Stop: 12/20/17 23:49 Albuterol/Ipratropium (Duoneb Neb) 3 ml HHN Q2HR PRN PRN Reason: Wheezing Stop: 12/20/17 23:53 Atorvastatin Calcium (Lipitor) 10 mg GT DAILY RAYMUNDO PRN Reason: Protocol Stop: 12/21/17 08:59 Last Admin: 10/25/17 09:33 Dose: 10 mg Budesonide (Pulmicort) 0.5 mg HHN BIDRT RAYMUNDO Stop: 12/21/17 06:59 Last Admin: 10/26/17 07:13 Dose: 0.5 mg Clobetasol Propionate (Temovate 0.05% Cream) 1 appl TP BID RAYMUNDO Stop: 12/22/17 16:59 Last Admin: 10/25/17 18:03 Dose: 1 appl Diphenhydramine HCl (Benadryl) 25 mg GT Q6HR PRN PRN Reason: Itching Stop: 12/20/17 23:53 Docusate Sodium (Colace) 100 mg GT DAILY RAYMUNDO Stop: 12/21/17 08:59 Last Admin: 10/25/17 09:33 Dose: 100 mg Donepezil HCl (Aricept) 5 mg GT HS RAYMUNDO Stop: 12/21/17 20:59 Last Admin: 10/25/17 21:01 Dose: 5 mg Glipizide (Glucotrol) 10 mg GT QDAC RAYMUNDO Stop: 12/21/17 07:29 Last Admin: 10/26/17 06:33 Dose: 10 mg Hydrocortisone (Hydrocortisone 2.5%) 1 appl TP BID RAYMUNDO Stop: 12/21/17 08:59 Last Admin: 10/25/17 18:02 Dose: 1 appl Insulin Aspart (Novolog Insulin Sliding Scale) 0 units SUBQ ACHS RAYMUNDO PRN Reason: Protocol Stop: 12/21/17 07:29 Last Admin: 10/26/17 06:32 Dose: Not Given Insulin Detemir (Levemir Insulin) 10 units SUBQ HS RAYMUNDO PRN Reason: Protocol Stop: 12/21/17 20:59 Last Admin: 10/25/17 21:02 Dose: 10 units Lactobacillus Rhamnosus (Culturelle 15b) 1 each GT DAILY RAYMUNDO Stop: 12/21/17 08:59 Last Admin: 10/25/17 09:34 Dose: 1 each Lorazepam (Ativan) 1 mg GT Q4HR PRN; Protocol PRN Reason: Agitation Stop: 12/20/17 23:53 Magnesium Hydroxide (Milk Of Magnesia) 30 ml PO HS PRN PRN Reason: Constipation Memantine (Namenda) 5 mg GT BID RAYMUNDO Stop: 12/25/17 08:59 Metformin HCl (Glucophage) 500 mg GT BIDWM RAYMUNDO Stop: 12/21/17 07:59 Last Admin: 10/25/17 18:03 Dose: 500 mg Metoprolol Tartrate (Lopressor) 25 mg GT Q8HR RAYMUNDO Stop: 12/21/17 12:59 Last Admin: 10/26/17 05:19 Dose: 25 mg Mupirocin (Bactroban Oint) 1 appl NS BID RAYMUNDO Stop: 10/29/17 09:01 Last Admin: 10/25/17 18:03 Dose: 1 appl Nystatin (Nystatin) 100,000 units PO BID RAYMUNDO Stop: 12/21/17 08:59 Last Admin: 10/25/17 18:03 Dose: 100,000 units Quetiapine Fumarate (Seroquel) 12.5 mg PO BID RAYMUNDO PRN Reason: Protocol Stop: 12/21/17 08:59 Last Admin: 10/25/17 18:03 Dose: 12.5 mg Zolpidem Tartrate (Ambien) 5 mg PO HS PRN PRN Reason: Insomnia Stop: 12/20/17 23:49 - Procedures Procedures: Procedures Procedure Code Date DEBORA SUBQ TISSUE 20 SQ CM/< 21375 07/06/17 EXCISION OF L FOOT SUBCU/FASCIA, OPEN APPROACH [id number] 07/06/17 Assessment/Plan - Problem List Patient Problems: All Active Problems Chest congestion (Acute) R09.89 Rash (Acute) R21 Nutritional Asmnt/Malnutr-PDOC - Dietary Evaluation Malnutrition Findings (Please click <Entered> for more info): Nutritional Asmnt/Malnutrition Start: 10/24/17 15: 28 Text: Status: Complete Freq: Document 10/24/17 15:28 [email or web address] (Rec: 10/24/17 15:46 LCHENG [email or web address]) Nutritional Asmnt/Malnutrition Patient General Information Nutritional Screening High Risk Diagnosis psychosis Pertinent Medical Hx/Surgical Hx HTN, DM, hyperlipidemia, anemia Subjective Information Consult received for GT/NPO/DM . Pt seen resting in bed at time of visit. Per RN, pt was tolerating bolus feeding well. Current Diet Order/ Nutrition Support diabetisource AC 300ml/hr q6hr , providing 1440kcal, 72 protein Pertinent Medications colace, glucotrol, novolog, levemir, culturelle, glucophage, seroquel Pertinent Labs 2/2 Na 141, k 4.0. Cl 106, BUN 32, Cr 0.6, Glucose 122, 2/3-2 POC 89-187 Nutritional Hx/Data Height 1.68 m Height (Calculated Centimeters) 167.6 Current Weight (lbs) 68.039 kg Weight (Calculated Kilograms) 68.0 Weight (Calculated Grams) 76748.9 [place] Body Weight 142 % [place] Body Weight 107 Body Mass Index (BMI) 24.2 Weight Status Approriate GI Symptoms GI Symptoms None Last BM 2/4 Difficult in: None Skin Integrity/Comment: rash, redness, Darrel 12 Estimated Nutritional Goals BEE in Kcals: Using Current wt Calories/Kcals/Kg 25-30 Kcals Calculated 8016-1318 Protein: Using Current wt Protein g/k-1.2 Protein Calculated 68-82 Fluid: ml 1700-2040ml (1ml/kcal) Nutritional Problem 1. Problem Problem altered nutrition related lab values Etiology hx of DM Signs/Symptoms: glucose 122, POC 89-187 Malnutrition Alert Protein-Calorie Malnutrition N/A Is there a minimum of two criteria No selected? Query Text:Check all the applicable criteria. A minimum of two criteria are recommended for diagnosis of either severe or non-severe malnutrition. Intervention/Recommendation Comments 1. Continue with current TF regimen. 2. Monitor bolus feeding tolerance, wt, labs and skin integrity 3. F/U as moderate risk in 3-5 days, 10/27-10/29 Expected Outcomes/Goals Expected Outcomes/Goals 1. PO intake to meet at least 75% of nutritional needs. 2. Wt stability, skin to remain intact, labs to approach WNL.
[2017-10-26] MEDS: Insulin Detemir 100 units/mL 10mL Vial SUBQ SCH (21:10)
--- NOTE | 2017-10-27 00:11 | Progress Notes ---
DATE: 10/24/2017 The patient continued to be easily agitated. The patient also is still having episodes of aggression and still has combative behavior. The patient also is sexually inappropriate and the patient asked one of the female nursing staff if she can "jump in bed with him" according to nursing staff. The patient also is still angry and irritable and still needs lots of redirections. ASSESSMENT: The patient is still agitated and psychotic. TREATMENT PLAN: Continue monitoring his behavior and his condition closely. Also, continue adjusting psychotropic medications and work on behavioral modification. JOB# [id number]
[2017-10-27] MEDS: INSULIN ASPART SLIDING SCALE 100 UNITS/ML UNIT SUBQ SCH ×4 (06:57→21:50)
[2017-10-27] MEDS: Budesonide 0.5 Mg/2 mL Ud HHN SCH ×2 (07:34→20:23)
--- NOTE | 2017-10-27 08:43 | General Progress Note ---
Subjective - Review of Systems Events since last encounter: patient still psychotic in no distress Objective - Results Result Diagrams: 10/21/17 20:20 10/21/17 20:20 Recent Labs: Laboratory Last Values WBC 10.6 Th/cmm (4.8-10.8) 10/21/17 20:20 RBC 4.33 Mil/cmm (3.80-5.80) 10/21/17 20:20 Hgb 11.4 gm/dL (12-16) L 10/21/17 20:20 Hct 35.2 % (41.0-60) L 10/21/17 20:20 MCV 81.4 fl (80-99) 10/21/17 20:20 MCH 26.3 pg (27.0-31.0) L 10/21/17 20:20 MCHC Differential 32.4 pg (28.0-36.0) 10/21/17 20:20 RDW 18.6 % (11.5-20.0) 10/21/17 20:20 Plt Count 406 Th/cmm (150-400) H 10/21/17 20:20 MPV 8.5 fl 10/21/17 20:20 Neutrophils % 66.5 % (40.0-80.0) 10/21/17 20:20 Lymphocytes % 17.0 % (20.0-50.0) L 10/21/17 20:20 Monocytes % 6.6 % (2.0-10.0) 10/21/17 20:20 Eosinophils % 9.0 % (0.0-5.0) H 10/21/17 20:20 Basophils % 0.9 % (0.0-2.0) 10/21/17 20:20 Sodium 141 mEq/L (136-145) 10/21/17 20:20 Potassium 4.0 mEq/L (3.5-5.1) 10/21/17 20:20 Chloride 106 mEq/L (98-107) 10/21/17 20:20 Carbon Dioxide 25.1 mEq/L (21.0-31.0) 10/21/17 20:20 Anion Gap 13.9 (7.0-16.0) 10/21/17 20:20 BUN 32 mg/dL (7-25) H 10/21/17 20:20 Creatinine 0.6 mg/dL (0.7-1.3) L 10/21/17 20:20 Est GFR ( Amer) TNP 10/21/17 20:20 Est GFR (Non-Af Amer) TNP 10/21/17 20:20 BUN/Creatinine Ratio 53.3 10/21/17 20:20 Glucose 122 mg/dL (70-105) H 10/21/17 20:20 POC Glucose 151 MG/DL (70 - 105) H 10/27/17 06:50 Calcium 9.2 mg/dL (8.6-10.3) 10/21/17 20:20 Total Bilirubin 0.3 mg/dL (0.3-1.0) 10/21/17 20:20 AST 14 U/L (13-39) 10/21/17 20:20 ALT 14 U/L (7-52) 10/21/17 20:20 Alkaline Phosphatase 87 U/L (34-104) 10/21/17 20:20 Total Protein 7.1 gm/dL (6.0-8.3) 10/21/17 20:20 Albumin 3.5 gm/dL (4.2-5.5) L 10/21/17 20:20 Globulin 3.6 gm/dL 10/21/17 20:20 Albumin/Globulin Ratio 1.0 (1.0-1.8) 10/21/17 20:20 TSH 1.69 uIU/ml (0.34-5.60) 10/21/17 20:20 - Physical Exam Vitals and I&O: Vital Signs Temp 97.6 F 10/26/17 15:08 Pulse 103 10/27/17 07:34 Resp 18 10/27/17 07:35 BP 99/57 10/27/17 05:55 Pulse Ox 94 10/27/17 07:34 Intake & Output 10/26/17 10/27/17 10/27/17 18:59 06:59 18:59 Other: # Voids 3 3 # Bowel Movements 1 Active Medications: Current Medications Acetaminophen (Tylenol) 650 mg PO Q4HR PRN PRN Reason: Mild Pain / Temp above 100 Stop: 12/20/17 23:49 Last Admin: 10/24/17 15:11 Dose: 650 mg Acetaminophen/Hydrocodone Bitart ([place] 5mg/325mg) 1 tab GT Q6H PRN PRN Reason: Pain (Moderate) Stop: 12/20/17 23:53 Al Hydrox/Mg Hydrox/Simethicone (Maalox) 30 ml PO Q4HR PRN PRN Reason: GI DISTRESS Stop: 12/20/17 23:49 Albuterol/Ipratropium (Duoneb Neb) 3 ml HHN Q2HR PRN PRN Reason: Wheezing Stop: 12/20/17 23:53 Atorvastatin Calcium (Lipitor) 10 mg GT DAILY RAYMUNDO PRN Reason: Protocol Stop: 12/21/17 08:59 Last Admin: 10/26/17 09:34 Dose: 10 mg Budesonide (Pulmicort) 0.5 mg HHN BIDRT RAYMUNDO Stop: 12/21/17 06:59 Last Admin: 10/27/17 07:34 Dose: Not Given Clobetasol Propionate (Temovate 0.05% Cream) 1 appl TP BID RAYMUNDO Stop: 12/22/17 16:59 Last Admin: 10/26/17 17:27 Dose: 1 appl Diphenhydramine HCl (Benadryl) 25 mg GT Q6HR PRN PRN Reason: Itching Stop: 12/20/17 23:53 Docusate Sodium (Colace) 100 mg GT DAILY RAYMUNDO Stop: 12/21/17 08:59 Last Admin: 10/26/17 09:34 Dose: 100 mg Donepezil HCl (Aricept) 5 mg GT HS RAYMUNDO Stop: 12/21/17 20:59 Last Admin: 10/26/17 21:22 Dose: 5 mg Glipizide (Glucotrol) 10 mg GT QDAC RAYMUNDO Stop: 12/21/17 07:29 Last Admin: 10/27/17 06:56 Dose: 10 mg Hydrocortisone (Hydrocortisone 2.5%) 1 appl TP BID RAYMUNDO Stop: 12/21/17 08:59 Last Admin: 10/26/17 17:27 Dose: 1 appl Insulin Aspart (Novolog Insulin Sliding Scale) 0 units SUBQ ACHS RAYMUNDO PRN Reason: Protocol Stop: 12/21/17 07:29 Last Admin: 10/27/17 06:57 Dose: 3 units Insulin Detemir (Levemir Insulin) 10 units SUBQ HS RAYMUNDO PRN Reason: Protocol Stop: 12/21/17 20:59 Last Admin: 10/26/17 21:10 Dose: 10 units Lactobacillus Rhamnosus (Culturelle 15b) 1 each GT DAILY [facility] Stop: 12/21/17 08:59 Last Admin: 10/26/17 09:34 Dose: 1 each Lorazepam (Ativan) 1 mg GT Q4HR PRN; Protocol PRN Reason: Agitation Stop: 12/20/17 23:53 Magnesium Hydroxide (Milk Of Magnesia) 30 ml PO HS PRN PRN Reason: Constipation Memantine (Namenda) 5 mg GT BID [facility] Stop: 12/25/17 08:59 Last Admin: 10/26/17 17:33 Dose: 5 mg Metformin HCl (Glucophage) 500 mg GT BIDWM [facility] Stop: 12/21/17 07:59 Last Admin: 10/26/17 17:33 Dose: 500 mg Metoprolol Tartrate (Lopressor) 25 mg GT Q8HR [facility] Stop: 12/21/17 12:59 Last Admin: 10/27/17 05:55 Dose: Not Given Mupirocin (Bactroban Oint) 1 appl NS BID [facility] Stop: 10/29/17 09:01 Last Admin: 10/26/17 17:27 Dose: 1 appl Nystatin (Nystatin) 100,000 units PO BID [facility] Stop: 12/21/17 08:59 Last Admin: 10/26/17 17:27 Dose: 100,000 units Quetiapine Fumarate (Seroquel) 12.5 mg PO BID RAYMUNDO PRN Reason: Protocol Stop: 12/21/17 08:59 Last Admin: 10/26/17 17:33 Dose: 12.5 mg Zolpidem Tartrate (Ambien) 5 mg PO HS PRN PRN Reason: Insomnia Stop: 12/20/17 23:49 - Procedures Procedures: Procedures Procedure Code Date DEBORA SUBQ TISSUE 20 SQ CM/< 70892 07/06/17 EXCISION OF L FOOT SUBCU/FASCIA, OPEN APPROACH [id number] 07/06/17 Assessment/Plan - Problem List Patient Problems: All Active Problems Chest congestion (Acute) R09.89 Rash (Acute) R21 Nutritional Asmnt/Malnutr-PDOC - Dietary Evaluation Malnutrition Findings (Please click <Entered> for more info): Nutritional Asmnt/Malnutrition Start: 02/05/18 15: 28 Text: Status: Complete Freq: Document 10/24/17 15:28 LCMILANA (Rec: 10/24/17 15:46 LCNINAG [email or web address]) Nutritional Asmnt/Malnutrition Patient General Information Nutritional Screening High Risk Diagnosis psychosis Pertinent Medical Hx/Surgical Hx HTN, DM, hyperlipidemia, anemia Subjective Information Consult received for GT/NPO/DM . Pt seen resting in bed at time of visit. Per RN, pt was tolerating bolus feeding well. Current Diet Order/ Nutrition Support diabetisource AC 300ml/hr q6hr , providing 1440kcal, 72 protein Pertinent Medications colace, glucotrol, novolog, levemir, culturelle, glucophage, seroquel Pertinent Labs 2/ Na 141, k 4.0. Cl 106, BUN 32, Cr 0.6, Glucose 122, 2/-10/24 POC 89-187 Nutritional Hx/Data Height 1.68 m Height (Calculated Centimeters) 167.6 Current Weight (lbs) 68.039 kg Weight (Calculated Kilograms) 68.0 Weight (Calculated Grams) 10603.9 [place] Body Weight 142 % [place] Body Weight 107 Body Mass Index (BMI) 24.2 Weight Status Approriate GI Symptoms GI Symptoms None Last BM 2/4 Difficult in: None Skin Integrity/Comment: rash, redness, Darrel 12 Estimated Nutritional Goals BEE in Kcals: Using Current wt Calories/Kcals/Kg 25-30 Kcals Calculated 3273-3732 Protein: Using Current wt Protein g/k-1.2 Protein Calculated 68-82 Fluid: ml 1700-2040ml (1ml/kcal) Nutritional Problem 1. Problem Problem altered nutrition related lab values Etiology hx of DM Signs/Symptoms: glucose 122, POC 89-187 Malnutrition Alert Protein-Calorie Malnutrition N/A Is there a minimum of two criteria No selected? Query Text:Check all the applicable criteria. A minimum of two criteria are recommended for diagnosis of either severe or non-severe malnutrition. Intervention/Recommendation Comments 1. Continue with current TF regimen. 2. Monitor bolus feeding tolerance, wt, labs and skin integrity 3. F/U as moderate risk in 3-5 days, 10/27-10/29 Expected Outcomes/Goals Expected Outcomes/Goals 1. PO intake to meet at least 75% of nutritional needs. 2. Wt stability, skin to remain intact, labs to approach WNL.
[2017-10-27] MEDS: Clobetasol Propionate 0.05% Cream 45 gm Tube TP SCH ×2 (10:45→18:20)
[2017-10-27] MEDS: Atorvastatin Calcium 10 MG TAB GT SCH (10:45)
[2017-10-27] MEDS: Multivitamin w/ Minerals Tab GT SCH (10:45)
[2017-10-27] MEDS: Docusate Sodium 100 mg/10 mL UD GT SCH (10:45)
[2017-10-27] MEDS: Lactobacillus Rhamnosus GG 15 Billion CFU CAP.SPRINK GT SCH (10:45)
[2017-10-27] MEDS: Insulin Detemir 100 units/mL 10mL Vial SUBQ SCH (21:51)
[2017-10-28] MEDS: INSULIN ASPART SLIDING SCALE 100 UNITS/ML UNIT SUBQ SCH ×3 (07:02→17:05)
[2017-10-28] MEDS: Budesonide 0.5 Mg/2 mL Ud HHN SCH (07:48)
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
[2017-10-28] MEDS: Atorvastatin Calcium 10 MG TAB GT SCH (09:50)
[2017-10-28] MEDS: Lactobacillus Rhamnosus GG 15 Billion CFU CAP.SPRINK GT SCH (09:51)
[2017-10-28] MEDS: Multivitamin w/ Minerals Tab GT SCH (09:51)
[2017-10-28] MEDS: Docusate Sodium 100 mg/10 mL UD GT SCH (09:51)
[2017-10-28] MEDS: Clobetasol Propionate 0.05% Cream 45 gm Tube TP SCH ×2 (09:51→17:43)
--- NOTE | 2017-10-28 10:07 | Progress Notes ---
DATE: 10/25/2017 The patient is still confused and he is still showing poor impulse control. The patient also is still resisting care. The patient also is selectively mute and he is striking out during feeding him through the G-tube. Also, needs close monitoring of his condition and his close monitoring of his medications because of his striking out behavior and his confusion. ASSESSMENT: The patient is still anxious and is still confused and have poor impulse control. TREATMENT PLAN: We will continue monitoring his behavior and his condition closely. Also, continue adjusting psychotropic medications and working on behavioral modification. JOB# [id number]
--- NOTE | 2017-10-28 11:04 | Progress Notes ---
DATE: 10/26/2017 Chart reviewed and the patient interviewed. Also, discussed the patient's condition with the staff and reviewed records and labs. The patient is still withdrawn and in a depressed mood. The patient also is calm and less agitated. Also, is still having episodes of forgetfulness and severe confusion. Otherwise, the patient is compliant with taking medications with no side effects of medications. ASSESSMENT: The patient is still withdrawn and confused. TREATMENT PLAN: We will continue Seroquel in a dose of 12.5 mg twice a day and Namenda 5 mg twice a day. Also, continue working on adjusting psychotropic medications and followup. JOB# [id number]
--- NOTE | 2017-10-28 12:25 | Progress Notes ---
DATE: 10/27/2017 SUBJECTIVE: Chart reviewed and the patient interviewed. Also discussed the patient's condition with the staff and reviewed records and labs. The patient is still paranoid and he is still withdrawn. The patient also still at times has periods of agitation and severe paranoia. Also, is still guarded and withdrawn. The patient also is still needs redirections. Otherwise, the patient also is compliant with taking medications with no side effect of medications. ASSESSMENT: The patient is still psychotic and paranoid and needs close monitoring. TREATMENT PLAN: Continue to monitor behavior and condition closely. Also, continue adjusting psychotropic medications and followup. [facility]# [id number]
--- NOTE | 2017-10-28 17:28 | Internal Medicine Prog Note ---
Internal Medicine Subjective - Subjective Service Date: 10/28/17 Patient is:: awake, verbal Per staff patient has:: no adverse event Internal Medicine Objective - Results Result Diagrams: 10/21/17 20:20 10/21/17 20:20 Recent Labs: Laboratory Last Values WBC 10.6 Th/cmm (4.8-10.8) 10/21/17 20:20 RBC 4.33 Mil/cmm (3.80-5.80) 10/21/17 20:20 Hgb 11.4 gm/dL (12-16) L 10/21/17 20:20 Hct 35.2 % (41.0-60) L 10/21/17 20:20 MCV 81.4 fl (80-99) 10/21/17 20:20 MCH 26.3 pg (27.0-31.0) L 10/21/17 20:20 MCHC Differential 32.4 pg (28.0-36.0) 10/21/17 20:20 RDW 18.6 % (11.5-20.0) 10/21/17 20:20 Plt Count 406 Th/cmm (150-400) H 10/21/17 20:20 MPV 8.5 fl 10/21/17 20:20 Neutrophils % 66.5 % (40.0-80.0) 10/21/17 20:20 Lymphocytes % 17.0 % (20.0-50.0) L 10/21/17 20:20 Monocytes % 6.6 % (2.0-10.0) 10/21/17 20:20 Eosinophils % 9.0 % (0.0-5.0) H 10/21/17 20:20 Basophils % 0.9 % (0.0-2.0) 10/21/17 20:20 Sodium 141 mEq/L (136-145) 10/21/17 20:20 Potassium 4.0 mEq/L (3.5-5.1) 10/21/17 20:20 Chloride 106 mEq/L (98-107) 10/21/17 20:20 Carbon Dioxide 25.1 mEq/L (21.0-31.0) 10/21/17 20:20 Anion Gap 13.9 (7.0-16.0) 10/21/17 20:20 BUN 32 mg/dL (7-25) H 10/21/17 20:20 Creatinine 0.6 mg/dL (0.7-1.3) L 10/21/17 20:20 Est GFR ( Amer) TNP 10/21/17 20:20 Est GFR (Non-Af Amer) TNP 10/21/17 20:20 BUN/Creatinine Ratio 53.3 10/21/17 20:20 Glucose 122 mg/dL (70-105) H 10/21/17 20:20 POC Glucose 119 MG/DL (70 - 105) H 10/28/17 11:38 Calcium 9.2 mg/dL (8.6-10.3) 10/21/17 20:20 Total Bilirubin 0.3 mg/dL (0.3-1.0) 10/21/17 20:20 AST 14 U/L (13-39) 10/21/17 20:20 ALT 14 U/L (7-52) 10/21/17 20:20 Alkaline Phosphatase 87 U/L (34-104) 10/21/17 20:20 Total Protein 7.1 gm/dL (6.0-8.3) 10/21/17 20:20 Albumin 3.5 gm/dL (4.2-5.5) L 10/21/17 20:20 Globulin 3.6 gm/dL 10/21/17 20:20 Albumin/Globulin Ratio 1.0 (1.0-1.8) 10/21/17 20:20 TSH 1.69 uIU/ml (0.34-5.60) 10/21/17 20:20 - Physical Exam Vitals and I&O: Vital Signs Temp 97.4 F 10/28/17 14:30 Pulse 98 10/28/17 14:30 Resp 19 10/28/17 14:30 BP 105/51 10/28/17 14:30 Pulse Ox 94 10/28/17 14:30 Intake & Output 10/27/17 10/28/17 10/28/17 18:59 06:59 18:59 Intake Total 1000 Balance 1000 Intake: Oral 1000 Other: # Bowel Movements 1 Active Medications: Current Medications Acetaminophen (Tylenol) 650 mg PO Q4HR PRN PRN Reason: Mild Pain / Temp above 100 Stop: 12/20/17 23:49 Last Admin: 10/24/17 15:11 Dose: 650 mg Acetaminophen/Hydrocodone Bitart ([place] 5mg/325mg) 1 tab GT Q6H PRN PRN Reason: Pain (Moderate) Stop: 12/20/17 23:53 Al Hydrox/Mg Hydrox/Simethicone (Maalox) 30 ml PO Q4HR PRN PRN Reason: GI DISTRESS Stop: 12/20/17 23:49 Albuterol/Ipratropium (Duoneb Neb) 3 ml HHN Q2HR PRN PRN Reason: Wheezing Stop: 12/20/17 23:53 Atorvastatin Calcium (Lipitor) 10 mg GT DAILY RAYMUNDO PRN Reason: Protocol Stop: 12/21/17 08:59 Last Admin: 10/28/17 09:50 Dose: 10 mg Budesonide (Pulmicort) 0.5 mg HHN BIDRT [facility] Stop: 12/21/17 06:59 Last Admin: 10/28/17 07:48 Dose: Not Given Clobetasol Propionate (Temovate 0.05% Cream) 1 appl TP BID RAYMUNDO Stop: 12/22/17 16:59 Last Admin: 10/28/17 09:51 Dose: 1 appl Diphenhydramine HCl (Benadryl) 25 mg GT Q6HR PRN PRN Reason: Itching Stop: 12/20/17 23:53 Docusate Sodium (Colace) 100 mg GT DAILY [facility] Stop: 12/21/17 08:59 Last Admin: 10/28/17 09:51 Dose: 100 mg Donepezil HCl (Aricept) 5 mg GT HS RAYMUNDO Stop: 12/21/17 20:59 Last Admin: 10/27/17 21:47 Dose: 5 mg Glipizide (Glucotrol) 10 mg GT QDAC RAYMUNDO Stop: 12/21/17 07:29 Last Admin: 10/28/17 06:58 Dose: 10 mg Hydrocortisone (Hydrocortisone 2.5%) 1 appl TP BID RAYMUNDO Stop: 12/21/17 08:59 Last Admin: 10/28/17 09:50 Dose: 1 appl Insulin Aspart (Novolog Insulin Sliding Scale) 0 units SUBQ ACHS RAYMUNDO PRN Reason: Protocol Stop: 12/21/17 07:29 Last Admin: 10/28/17 17:05 Dose: Not Given Insulin Detemir (Levemir Insulin) 10 units SUBQ HS RAYMUNDO PRN Reason: Protocol Stop: 12/21/17 20:59 Last Admin: 10/27/17 21:51 Dose: 10 units Lactobacillus Rhamnosus (Culturelle 15b) 1 each GT DAILY RAYMUNDO Stop: 12/21/17 08:59 Last Admin: 10/28/17 09:51 Dose: 1 each Lorazepam (Ativan) 1 mg GT Q4HR PRN; Protocol PRN Reason: Agitation Stop: 12/20/17 23:53 Magnesium Hydroxide (Milk Of Magnesia) 30 ml PO HS PRN PRN Reason: Constipation Memantine (Namenda) 5 mg GT BID RAYMUNDO Stop: 12/25/17 08:59 Last Admin: 10/28/17 09:51 Dose: 5 mg Metformin HCl (Glucophage) 500 mg GT BIDWM [facility] Stop: 12/21/17 07:59 Last Admin: 10/28/17 09:49 Dose: 500 mg Metoprolol Tartrate (Lopressor) 25 mg GT Q8HR RAYMUNDO Stop: 12/21/17 12:59 Last Admin: 10/28/17 13:09 Dose: Not Given Mupirocin (Bactroban Oint) 1 appl NS BID [facility] Stop: 10/29/17 09:01 Last Admin: 10/28/17 09:52 Dose: 1 appl Nystatin (Nystatin) 100,000 units PO BID [facility] Stop: 12/21/17 08:59 Last Admin: 10/28/17 09:52 Dose: 100,000 units Quetiapine Fumarate (Seroquel) 12.5 mg PO BID RAYMUNDO PRN Reason: Protocol Stop: 12/21/17 08:59 Last Admin: 10/28/17 09:52 Dose: 12.5 mg Zolpidem Tartrate (Ambien) 5 mg PO HS PRN PRN Reason: Insomnia Stop: 12/20/17 23:49 General: alert HEENT: NC/AT, PERRLA Neck: Supple, No JVD Lungs: CTAB Abdomen: soft, non-tender, non-distended, positive bowel sound - Procedures Procedures: Procedures Procedure Code Date DEBORA SUBQ TISSUE 20 SQ CM/< 47606 07/06/17 EXCISION OF L FOOT SUBCU/FASCIA, OPEN APPROACH [id number] 07/06/17 Internal Medicine Assmt/Plan - Assessment Assessment: dementia copd hyperlipidemia dm2 oa htn - Plan Plan: continue current orders Nutritional Asmnt/Malnutr-PDOC - Dietary Evaluation Malnutrition Findings (Please click <Entered> for more info): Nutritional Asmnt/Malnutrition Start: 10/24/17 15: 28 Text: Status: Complete Freq: Document 10/24/17 15:28 NANCY (Rec: 10/24/17 15:46 LCNINAG [email or web address]) Nutritional Asmnt/Malnutrition Patient General Information Nutritional Screening High Risk Diagnosis psychosis Pertinent Medical Hx/Surgical Hx HTN, DM, hyperlipidemia, anemia Subjective Information Consult received for GT/NPO/DM . Pt seen resting in bed at time of visit. Per RN, pt was tolerating bolus feeding well. Current Diet Order/ Nutrition Support diabetisource AC 300ml/hr q6hr , providing 1440kcal, 72 protein Pertinent Medications colace, glucotrol, novolog, levemir, culturelle, glucophage, seroquel Pertinent Labs 2/2 Na 141, k 4.0. Cl 106, BUN 32, Cr 0.6, Glucose 122, 2/3-2/5 POC 89-187 Nutritional Hx/Data Height 5 ft 6 in Height (Calculated Centimeters) 167.6 Current Weight (lbs) 150 lb Weight (Calculated Kilograms) 68.0 Weight (Calculated Grams) 10277.9 [place] Body Weight 142 % [place] Body Weight 107 Body Mass Index (BMI) 24.2 Weight Status Approriate GI Symptoms GI Symptoms None Last BM 2/4 Difficult in: None Skin Integrity/Comment: rash, redness, Darrel 12 Estimated Nutritional Goals BEE in Kcals: Using Current wt Calories/Kcals/Kg 25-30 Kcals Calculated 3585-5967 Protein: Using Current wt Protein g/k-1.2 Protein Calculated 68-82 Fluid: ml 1700-2040ml (1ml/kcal) Nutritional Problem 1. Problem Problem altered nutrition related lab values Etiology hx of DM Signs/Symptoms: glucose 122, POC 89-187 Malnutrition Alert Protein-Calorie Malnutrition N/A Is there a minimum of two criteria No selected? Query Text:Check all the applicable criteria. A minimum of two criteria are recommended for diagnosis of either severe or non-severe malnutrition. Intervention/Recommendation Comments 1. Continue with current TF regimen. 2. Monitor bolus feeding tolerance, wt, labs and skin integrity 3. F/U as moderate risk in 3-5 days, 10/27-10/29 Expected Outcomes/Goals Expected Outcomes/Goals 1. PO intake to meet at least 75% of nutritional needs. 2. Wt stability, skin to remain intact, labs to approach WNL.
== END 2017-10-28 17:45 | DRG 885 ==
LOC: ER 19:38 → GERO 22:54
PROVIDERS: ADMIT Psychiatry & Neurology Psychiatry; ATTEND Psychiatry & Neurology Psychiatry
DX: F29 Unspecified psychosis not due to a substance or known physiological condition (principal); N18.9 Chronic kidney disease, unspecified; Z93.1 Gastrostomy status; E11.65 Type 2 diabetes mellitus with hyperglycemia; F03.91 Unspecified dementia, unspecified severity, with behavioral disturbance; J44.9 Chronic obstructive pulmonary disease, unspecified; E78.5 Hyperlipidemia, unspecified; M19.90 Unspecified osteoarthritis, unspecified site; F41.9 Anxiety disorder, unspecified; D64.9 Anemia, unspecified; E86.0 Dehydration; I12.9 Hypertensive chronic kidney disease with stage 1 through stage 4 chronic kidney disease, or unspecified chronic kidney disease; R21 Rash and other nonspecific skin eruption; R09.89 Other specified symptoms and signs involving the circulatory and respiratory systems; Z79.4 Long term (current) use of insulin
CPT/HCPCS: 36415-UA; 71045-TC; 80053-TC; 82948-90; 84443-TC; 85025-TC; 93005; 94640; 94760; J1815; J7030; Z7610